=== PATIENT | male | born 1940 | race Caucasian/White ===

== ENCOUNTER 2024-10-08 15:21 | Inpatient (IN) | payer MEDICARE, OTHER, SELFPAY ==
[2024-10-08] VITALS (15 sets, daily range): BP systolic 109–151; BP diastolic 57–103
[2024-10-08 08:47] LABS: % Basophils 0.8 % (0-2); % Eosinophils 1.7 % (0-6); % Immature Granulocytes 0.5 % (0-0.5); % Lymphocytes 7.4 % (20.5-51.1); % Monocytes 10.4 % (1.7-9.3); % Neutrophils 79.2 % (42.2-75.2); Absolute Basophils 0.1 10^3/uL (0-0.2); Absolute Eosinophils 0.3 10^3/uL (0-0.7); Absolute Immature Granulocytes 0.1 10^3/uL (0-0.05); Absolute Lymphocytes 1.1 10^3/uL (1.2-3.4); Absolute Monocytes 1.6 10^3/uL (0.1-0.6); Absolute Neutrophils 12.2 10^3/uL (1.4-6.5); Hematocrit 49.4 % (39.0-52.0); Hemoglobin 17.1 g/dL (13.0-18.0); Mean Corp Hgb Conc. 34.6 g/dL (33.0-37.0); Mean Corpuscular Hgb 29.2 pg (27.0-31.0); Mean Corpuscular Volume 84.3 fL (80.0-94.0); Mean Platelet Volume 10.5 fL (7.4-10.4); Nucleated Red Blood Cells % 0 % (-); Platelet Count 199 10^3/uL (130-400); Red Blood Cell Count 5.86 10^6/uL (4.70-6.10); Red Cell Dist. Width 13.3 % (11.5-14.5); White Blood Cell Count 15.3 10^3/uL (4.8-10.8)
--- NOTE | 2024-10-08 09:02 | ED.GENMED ---
History of Present Illness
<Scott Frederick Jr., PA-C - Last Filed: 10/08/24 11:08>
General
Chief Complaint: Chest Pain
Source: patient and spouse
Exam Limitations: none
Time Seen by Provider: 10/08/24 08:37
Nursing documentation reviewed up to this point in time: agreed with
History of Present Illness
History of Present Illness:
84-year-old male presented to the emergency department today with concerns of right-sided chest discomfort over the past 2 days radiating to the right lower abdomen and to the back associated mild nausea and shortness. Does of a history of
ascending aortic aneurysm and renal aneurysm that gets monitored as an outpatient. Additionally has a history of high blood pressure and hyperlipidemia. Denies any change in bowel movements or vomiting. Denies any fevers.
Past History
<Scott Frederick Jr., PA-C - Last Filed: 10/08/24 11:08>
Past History
ED Past Medical History: CAD, HTN, Hypercholesterolemia and Other
Social History
Tobacco: Non-smoker
Review of Systems
<Scott Frederick Jr., PA-C - Last Filed: 10/08/24 11:08>
Review of Systems
Allergies reviewed?: Yes
All Other Systems: ROS reviewed and negative except as documented in HPI and ROS
Phy Exam
<Scott Frederick Jr., PA-C - Last Filed: 10/08/24 11:08>
Physical Exam
Physical Exam:
GENERAL: Alert , in no apparent distress
EYE: pupils equal and reactive
NECK: Supple, no significant adenopathy.
ENT: o/p clr, mmm.
CARDIAC: Regular rate and rhythm .
LUNGS: Clear breath sounds bilaterally, no acute respiratory distress, no wheezes/rales/rhonchi
ABDOMEN: Soft, without focal tenderness, no r/g, no cvat
NEUROLOGICAL: Alert and oriented, no focal neuro deficits
SKIN: Warm and dry, skin intact.
MUSCULOSKELETAL: No edema, well perfused.
PSYCH: Normal and appropriate interaction.
Scores
<Scott Frederick Jr., PA-C - Last Filed: 10/08/24 11:08>
Heart Score for Chest Pain Patients
STEMI patient?: Not applicable
Course
<Scott Frederick Jr., PA-C - Last Filed: 10/08/24 11:08>
Orders/Labs/Results
Orders:
Orders
10/08/24 07:56
EKG [Electrocardiogram (*1)] Urgent
Reason for Study: Chest Pain
10/08/24 07:57
EKG- Treatment ONCE
10/08/24 08:36
Complete Blood Count/With Diff Urgent
Comprehensive Metabolic Panel Urgent
Troponin I Urgent
10/08/24 08:48
CT Chest/abd/pelvis Angio W/wo Urgent
Comment:
Reason For Exam: chest abd pain/sob hx of aortic aneurysm
10/08/24 10:13
Heparin 9,500 units IV NOW STA
Pharmacy Request to Place See Dose Instructions PO NOW STA
Discontinue all Active Warfarin orders?: Yes
10/08/24 10:[address] Non Medication Order As Directed
Physician Order: PTT 6 hours after initial start of Heparin infusion
10/08/24 10:15
Heparin 27088 Units/250 ml 25,000 units in 250 ml IV PER PROTOCOL
Weight to be used for heparin protocol in kilograms (kg):: 118.8
Protocol:: DVT/PE
PTT Goal Range to be used:: PTT 73 to 111 seconds
Order type:: Initial
INITIAL Infusion Dose (UNITS/KG/hr) & then follow protocol:: 18 units/kg/hr
Infusion Dose in UNITS/hr & then follow protocol (UNITS/hr):: 2,000
INFUSION RATE in mL/hr & then follow protocol (mL/hr):: 20
For DVT/PE algorithm, re-bolus for low PTT?: Yes
PTT less than or equal to 64 seconds:: Re-bolus 80 units/kg (max 10,000units). Increase by 500 units/hr
(+ 5mL/hr)
PTT 64.1 to 72.9 seconds:: Re-bolus 40 units/kg (max 5,000 units). Increase by 200 units/hr
(+ 2mL/hr)
PTT 73 to 111 seconds:: Target Range. No change in rate.
PTT 111.1 to 130.9 seconds:: Decrease rate by 200 units/hr (- 2 mL/hr)
PTT 131 to 199.9 seconds:: HOLD for 1 hr. Then decrease by 400 units/hr (- 4mL/hr)
PTT greater than or equal to 200 seconds:: HOLD for 2 hrs & Notify Provider. Then decrease by 500 units/hr
(- 5mL/hr)
Lab follow-up:: Each change, PTT q6h until 2 consecutive are therapeutic. Then
PTT daily.
10/08/24 10:16
PTT Urgent
Comment: Obtain baseline before beginning heparin infusion if not already collected
10/08/24 10:20
Heparin 9,500 units IV PRN PRN
10/08/24 10:21
Heparin 5,000 units IV PRN PRN
10/08/24 10:24
Echo 2D MMode Color/Doppler Stat
Reason for Study: Large R PE
10/08/24 10:27
Heparin [id number] Units/250 ml 25,000 units in 250 ml .ROUTE .STK-MED
10/08/24 11:[address] See Dose Instructions IV DIRECTED
10/08/24 16:30
PTT Urgent
Abnormal Lab Results
10/08/24
08:36
WBC 15.3 H 10^3/uL
(4.8-10.8)
MPV 10.5 H fL
(7.4-10.4)
Abs Immat Gran (auto) 0.1 H 10^3/uL
(0-0.05)
Absolute Neuts (auto) 12.2 H 10^3/uL
(1.4-6.5)
Absolute Lymphs (auto) 1.1 L 10^3/uL
(1.2-3.4)
Absolute Monos (auto) 1.6 H 10^3/uL
(0.1-0.6)
Neutrophils % 79.2 H %
(42.2-75.2)
Lymphocytes % 7.4 L %
(20.5-51.1)
Monocytes % 10.4 H %
(1.7-9.3)
Chloride 108 H mmol/L
(98-107)
Creatinine 1.5 H mg/dL
(0.7-1.3)
Glucose 181 H mg/dl
(70-99)
Total Bilirubin 2.5 H mg/dl
(0.2-1.3)
Troponin I 0.077 H* ng/ml
10/08/24 08:36
10/08/24 08:36
Vital Signs
Initial and Last Documented VS:
Initial Vital Signs
Temp Pulse Resp BP Pulse Ox
98 F 72 16 129/88 94
10/08/24 08:02 10/08/24 08:02 10/08/24 08:02 10/08/24 08:02 10/08/24 08:02
Last Documented Vital Signs
Temp Pulse Resp BP Pulse Ox
98.5 F 95 16 109/91 94
10/08/24 10:32 10/08/24 10:32 10/08/24 10:32 10/08/24 10:33 10/08/24 10:15
<Abelardo Kern MD - Last Filed: 10/08/24 10:43>
Orders/Labs/Results
Orders:
Orders
10/08/24 07:56
EKG [Electrocardiogram (*1)] Urgent
Reason for Study: Chest Pain
10/08/24 07:57
EKG- Treatment ONCE
10/08/24 08:36
Complete Blood Count/With Diff Urgent
Comprehensive Metabolic Panel Urgent
Troponin I Urgent
10/08/24 08:48
CT Chest/abd/pelvis Angio W/wo Urgent
Comment:
Reason For Exam: chest abd pain/sob hx of aortic aneurysm
10/08/24 10:13
Heparin 9,500 units IV NOW STA
Pharmacy Request to Place See Dose Instructions PO NOW STA
Discontinue all Active Warfarin orders?: Yes
10/08/24 10:[address] Non Medication Order As Directed
Physician Order: PTT 6 hours after initial start of Heparin infusion
10/08/24 10:15
Heparin [id number] Units/250 ml 25,000 units in 250 ml IV PER PROTOCOL
Weight to be used for heparin protocol in kilograms (kg):: 118.8
Protocol:: DVT/PE
PTT Goal Range to be used:: PTT 73 to 111 seconds
Order type:: Initial
INITIAL Infusion Dose (UNITS/KG/hr) & then follow protocol:: 18 units/kg/hr
Infusion Dose in UNITS/hr & then follow protocol (UNITS/hr):: 2,000
INFUSION RATE in mL/hr & then follow protocol (mL/hr):: 20
For DVT/PE algorithm, re-bolus for low PTT?: Yes
PTT less than or equal to 64 seconds:: Re-bolus 80 units/kg (max 10,000units). Increase by 500 units/hr
(+ 5mL/hr)
PTT 64.1 to 72.9 seconds:: Re-bolus 40 units/kg (max 5,000 units). Increase by 200 units/hr
(+ 2mL/hr)
PTT 73 to 111 seconds:: Target Range. No change in rate.
PTT 111.1 to 130.9 seconds:: Decrease rate by 200 units/hr (- 2 mL/hr)
PTT 131 to 199.9 seconds:: HOLD for 1 hr. Then decrease by 400 units/hr (- 4mL/hr)
PTT greater than or equal to 200 seconds:: HOLD for 2 hrs & Notify Provider. Then decrease by 500 units/hr
(- 5mL/hr)
Lab follow-up:: Each change, PTT q6h until 2 consecutive are therapeutic. Then
PTT daily.
10/08/24 10:16
PTT Urgent
Comment: Obtain baseline before beginning heparin infusion if not already collected
10/08/24 10:20
Heparin 9,500 units IV PRN PRN
10/08/24 10:21
Heparin 5,000 units IV PRN PRN
10/08/24 10:24
Echo 2D MMode Color/Doppler Stat
Reason for Study: Large R PE
10/08/24 10:27
Heparin [id number] Units/250 ml 25,000 units in 250 ml .ROUTE .STK-MED
10/08/24 11:[address] See Dose Instructions IV DIRECTED
10/08/24 16:30
PTT Urgent
Abnormal Lab Results
10/08/24
08:36
WBC 15.3 H 10^3/uL
(4.8-10.8)
MPV 10.5 H fL
(7.4-10.4)
Abs Immat Gran (auto) 0.1 H 10^3/uL
(0-0.05)
Absolute Neuts (auto) 12.2 H 10^3/uL
(1.4-6.5)
Absolute Lymphs (auto) 1.1 L 10^3/uL
(1.2-3.4)
Absolute Monos (auto) 1.6 H 10^3/uL
(0.1-0.6)
Neutrophils % 79.2 H %
(42.2-75.2)
Lymphocytes % 7.4 L %
(20.5-51.1)
Monocytes % 10.4 H %
(1.7-9.3)
Chloride 108 H mmol/L
(98-107)
Creatinine 1.5 H mg/dL
(0.7-1.3)
Glucose 181 H mg/dl
(70-99)
Total Bilirubin 2.5 H mg/dl
(0.2-1.3)
Troponin I 0.077 H* ng/ml
10/08/24 08:36
10/08/24 08:36
Vital Signs
Initial and Last Documented VS:
Initial Vital Signs
Temp Pulse Resp BP Pulse Ox
98 F 72 16 129/88 94
10/08/24 08:02 10/08/24 08:02 10/08/24 08:02 10/08/24 08:02 10/08/24 08:02
Last Documented Vital Signs
Temp Pulse Resp BP Pulse Ox
98.5 F 95 16 109/91 94
10/08/24 10:32 10/08/24 10:32 10/08/24 10:32 10/08/24 10:33 10/08/24 10:15
<Scott Frederick Jr., PA-C - Last Filed: 10/08/24 11:08>
MDM/Problems Addressed
MDM/Problems Addressed:
84-year-old male presenting to the emergency department today with concerns of discomfort from the chest to the abdomen and back associated shortness of breath and nausea. On arrival here vital signs are normal patient no obvious distress no
significant reproducible pain. Patient does have a history of aortic aneurysm considering the description of symptoms from the chest to the abdomen rating to the back concern for aortic pathology CT angiogram was ordered for further assessment. CT
showing large right-sided PE. Some mild heart strain. Troponin additionally elevated at 0.077. A PERT alert was ordered and case was discussed with pulmonary care. They recommended stat echo. Patient was started on heparin. No history of
bleeding. Otherwise here doing well on 3 L nasal cannula. Patient admitted in stable condition
<Scott Frederick Jr., PA-C - Last Filed: 10/08/24 11:08>
*Critical Care Note
Total Time (30-74mins, 75-104mins- exclusive of procedures): Critical care statement:
comment:
Critical care statement: A total of 40 minutes of critical care time was provided for this patient. This includes management of unstable vital signs, evaluation of the patient at bedside, reviewing the patient's pertinent medical records, discussion
with consultants, review of old EKGs and review of pertinent medical records. This time with separate from time utilized to perform the aforementioned documented procedures
ED Attending Note
<Scott Frederick Jr., PA-C - Last Filed: 10/08/24 11:08>
-
Portions of this chart may have been created with voice recognition software.� Occasional wrong word or��sound alike� substitutions may have occurred due to the inherent limitations of voice recognition software.
<Abelardo Kern MD - Last Filed: 10/08/24 10:43>
ED Attending Note
Patient seen and examined by attending physician: Yes
I performed the substantive portion of visit, reviewed & personally made and approve the management plan that is documented in note by myself or OSCAR.: Yes
ED Attending Note:
84-year-old male started with some nausea 2 days ago followed by right pleuritic chest pain and shortness of breath. Symptoms are moderate in nature. No fever no cough no hemoptysis. Remote history of traumatic brain bleed. No GI bleeding
issues. No melena.
On exam patient is nontoxic. He is however mildly hypoxic on room air. 94% on 2 L. No respiratory distress otherwise. Blood pressure is reasonably stable. High normal heart rate. Abdomen nontender.
CT scan shows significant pulmonary emboli right lung with some mild RV strain. Heparin ordered. PERT alert called. Physician Assistant Surgery and IR involved. Likely will continue heparin at this time
Discharge Plan
Departure
Patient Disposition: Admit
Date of Disposition: 10/08/24
Time of Disposition: 11:03
Admit to: ICU
Admit to doctor: Domingo Miller
Presentation/result/management discussed w/ accepting MD/DO: Hospitalist
Patient with high blood pressure during this ER visit?: No
Condition: Good
Covid-19: Not Applicable
Discharge Problem:
Pulmonary embolism on right
Prescriptions:
No Action
valsartan 80 MG tablet
160 mg PO BID
bimatoprost [Lumigan] 0.03 % Drops
1 drp BOTH EYES DAILY
fexofenadine [Fabi] 180 mg Tablet
180 mg PO DAILY
amlodipine 5 mg Tablet
5 mg PO HS
diphenhydramine HCl [Benadryl] 25 mg Capsule
25 mg PO DAILYPRN PRN (Reason: ITCHING)
timolol maleate 0.5 % drops
1 drp BOTH EYES BID
magnesium oxide 250 mg magnesium Tablet
250 mg PO DAILY
ezetimibe 10 mg tablet
10 mg PO DAILY
coenzyme Q10 [Co Q-10] 200 mg Capsule
200 mg PO SUTUTHSA@1800
cholecalciferol (vitamin D3) [Vitamin D3] 125 mcg (5,000 unit) Tablet
125 mcg PO MOFR
pitavastatin calcium [Livalo] 1 mg Tablet
1 mg PO DAILY
Artificial Tears (PF) Dropperette
1 drp BOTH EYES QIDPRN PRN (Reason: DRY EYE)
Referrals:
Jacey Patrick DO [Family Provider] -
Interventions
Interventions:
*Risk Screen - Suicide Last Done: 10/08/24 08:02
*General Assessment Last Done: 10/08/24 08:37
*Neglect/Abuse Screening Last Done: 10/08/24 08:02
*ED- Fall Risk Assessment Last Done: 10/08/24 08:37
*ED COVID-19 Vaccine History Last Done: 10/08/24 08:37
ED- Cardiac Assessment Last Done: 10/08/24 08:38
Discharge Date and Time
Print Language: SLOVAK
[2024-10-08 09:03] LABS: ALT (SGPT) 40 U/L (0-50); AST (SGOT) 35 U/L (17-59); Albumin 4.2 g/dl (3.5-5.0); Alkaline Phosphatase 88 U/L (38-126); Blood Urea Nitrogen 19 mg/dl (9-20); Calcium 10.1 mg/dl (8.4-10.2); Carbon Dioxide 23 mmol/L (22-30); Chloride 108 mmol/L (98-107); Estimated Creatinine Clearance 53 ml/min; Glucose 181 mg/dl (70-99); Potassium 4.6 mmol/L (3.5-5.1); Sodium 139 mmol/L (135-145); Total Bilirubin 2.5 mg/dl (0.2-1.3); Total Protein 7.3 g/dl (6.3-8.2); eGFR 46.19
[2024-10-08 09:15] LABS: Troponin I 0.077 ng/ml
[2024-10-08] MEDS: HEPARIN 9500 UNITS IV (10:27)
[2024-10-08] MEDS: HEPARIN 25000 UNITS/250 ML IV (10:29)
[2024-10-08 10:32] LABS: APTT 31.1 Sec (23.4-35.0)
--- NOTE | 2024-10-08 11:45 | CARDSERVDEF ---
Echocardiogram with Definity completed after protocol screening completed. Allergies verified.
Patent IV site: _left hand____
IV site flushed with 0.9% NaCl pre and post administration.
Diluted bolus method utilized to enhance visualization of ventricular valentin.
Total volume given: __left hand__ mL
Patient tolerated all procedures well without complications.
[2024-10-08] MEDS: DILAUDID 0.25 MG IV ×2 (11:59→15:34)
[2024-10-08 14:20] LABS: NT-proBNP 721 pg/ml
--- NOTE | 2024-10-08 15:05 | HPS.HSE ---
Family Physician
-
Family Physician: Jacey Patrick
Chief Complaint
-
Chest discomfort
History of Present Illness
84-year-old male with past medical history of CAD, hypertension, hyperlipidemia, ascending aortic aneurysm and renal aneurysm getting closely monitored outpatient, now presents for right-sided chest discomfort that it was present 2 days ago.
Patient's chest discomfort was radiating to the right lower abdomen into the back. Also associate with nausea and shortness of breath. Patient did have chest discomfort upon inspiration, mild hypoxic requiring 4 L of oxygen, blood pressure 145/84,
respiratory rate 31, pulse 78, afebrile. White count 15.3 thousand creatinine 1.5 which is approximately at his baseline, troponin 0.077, proBNP 721. CT imaging evidence of positive large embolism beginning in the distal right main pulmonary
artery extending to the lobar branches. PERT alert was called. Further had low-density nodule arising in the left lobe of the thyroid gland. Echo is performed, technically difficult with flattened septum in systole consistent with RV pressure
overload, EF 55 to 60%, stage I diastolic dysfunction, mild aortic regurg. Right RV appears more hypokinetic than previous studies.
Medical History
Past Medical History
Past Medical History: Reports Other ( CAD, hypertension, hyperlipidemia, ascending aortic aneurysm and renal aneurysm)
Past Surgical History: Reports None
Social History
Tobacco: Non-smoker
Alcohol: None
Personal:
Family History
Family History: Not pertinent
Allergies / Home Medications
Allergies reflects when Allergies were last updated in [employer].
Home Medications with original date entered in [employer]
Allergy/Medication List:
Allergies
Allergy/AdvReac Type Severity Reaction Status Date / Time
cat dander Allergy Itching Verified 10/08/24 08:01
dog dander Allergy Itching Verified 10/08/24 08:01
grass pollen Allergy Itching Verified 10/08/24 08:01
hydrochlorothiazide Allergy Itching Verified 10/08/24 08:01
tree and shrub pollen Allergy Itching Verified 10/08/24 08:01
Home Medications
valsartan 80 mg tablet 160 mg PO BID 04/16/17
amlodipine 5 mg tablet 5 mg PO HS 10/08/24
bimatoprost 0.03 % eye drops 1 drp BOTH EYES DAILY 10/08/24
cholecalciferol (vitamin D3) 125 mcg (5,000 unit) tablet (Vitamin D3) 125 mcg PO MOFR 10/08/24
coenzyme Q10 200 mg capsule (Co Q-10) 200 mg PO SUTUTHSA@1800 10/08/24
dextran 70-hypromellose eye drops in a dropperette (Artificial Tears (PF) drops in a dropperette) 1 drp BOTH EYES QIDPRN PRN DRY EYE 10/08/24
diphenhydramine HCl 25 mg capsule (Benadryl) 25 mg PO DAILYPRN PRN ITCHING 10/08/24
ezetimibe 10 mg tablet 10 mg PO DAILY 10/08/24
fexofenadine 180 mg tablet 180 mg PO DAILY 10/08/24
magnesium oxide 250 mg PO DAILY 10/08/24
pitavastatin calcium 1 mg tablet (Livalo) 1 mg PO DAILY 10/08/24
timolol maleate 0.5 % eye drops 1 drp BOTH EYES BID 10/08/24
Review of Systems
-
History Source: Patient
A 12 point ROS was completed and negative except as noted: Yes
Physical Exam
Vital Signs
Vital Signs
Temp Pulse Resp BP Pulse Ox
98.5 F 78 16 145/84 94
10/08/24 10:32 10/08/24 14:00 10/08/24 14:08 10/08/24 14:00 10/08/24 14:00
Physical Exam
General: Well Developed
HEENT: NormoCephalic
Respiratory: Clear and Other (Tachypneic.)
Cardiac: S1/S2 and Regular Rhythm
GI: Soft and Non Tender
Musculoskeletal: No Clubbing
Skin: Warm
Neuro: Awake, Alert, Oriented and AO x 3
Hematologic/Lymphatic: No Lymphadenopathy
Psych: Calm
Laboratory Results
-
10/08/24 08:36
10/08/24 08:36
Laboratory Results
APTT 31.1 Sec (23.4-35.0) 10/08/24 10:16
Total Bilirubin 2.5 mg/dl (0.2-1.3) H 10/08/24 08:36
AST 35 U/L (17-59) 10/08/24 08:36
ALT 40 U/L (0-50) 10/08/24 08:36
Alkaline Phosphatase 88 U/L (38-126) 10/08/24 08:36
Troponin I 0.077 ng/ml H* 10/08/24 08:36
Data Reviewed
-
CT Scan: Report Reviewed by me
Medical Tests (Nuc Med, Echo, EKG etc): Report Reviewed by me
Lab Data: Labs Reviewed by me
Impression/Plan
-
IMPRESSION:
84-year-old male with past medical history of CAD, hypertension, hyperlipidemia, ascending aortic aneurysm and renal aneurysm getting closely monitored outpatient, now presents for right-sided chest discomfort that it was present 2 days ago. Found
to have large distal right main pulmonary artery embolism.
PLAN:
#Acute hypoxic respiratory failure
#Large distal right main pulmonary embolism
� PERT team was alerted
� Flattened septum on echo, EF 55 to 60%
� No intervention as per interventional radiology
� Avoid strenuous activity
� Continue heparin drip for 24 hours
� Pulmonary consulted
� Will need hematological evaluation outpatient
� Follow DVT study for completeness
� Wean O2 as tolerated
� Hold antihypertensives for now
#Elevated troponin
� Most likely nonischemic myocardial injury secondary to pulmonary embolism
� Trend troponins until peak
� No wall motion abnormality on echo
#Leukocytosis
� Most likely reactive
Monitor fever curve, white count
#CKD
� Monitor
#Hypertension
#Hyperlipidemia
#CAD
� Hold antihypertensives for now
� Can continue statin
#DVT prophylaxis
� Heparin drip
--- NOTE | 2024-10-08 15:30 | W.PN.UPDATE ---
Update Note
Progress Note Update
Received PERT alert from the reel cart operator earlier this AM at around 10-10:15AM. Reviewed images immediately, showing a right-sided PE with mild RV strain. Troponin level elevated although he is hemodynamically stable and on room air, although hypoxic
with saturations in the mid 90s. Discussed case with ER attending, as well as IR. Echo recommended, showing mild as moderately dilated RV with mild RV hypokinesis. IR recommends to continue with anticoagulation, and no emergent intervention is
needed at this time. Admit to hospitalist service with pulmonary consult. Please call [facility] services if there is any clinical worsening.
--- NOTE | 2024-10-08 15:42 | CON.PUL ---
Consultation
Consultation Request
Date/Time Consultation Requested: 10/08/2024
Date/Time Consultation Performed: 10/08/2024
Requesting Provider: Dr. Coreas
Performing Provider: Dr. Tristan Vargas
Reason for Consultation: Submassive pulmonary embolus
Medical History
-
History of Present Illness:
84-year-old male with past medical history significant for hypertension, coronary artery disease, hyperlipidemia, history of ascending aortic aneurysm presented to the emergency room complaining of right-sided chest discomfort for the past 2 days.
Chest pain was associated with shortness of breath and nausea. Did report some pleuritic type discomfort. He was found to be hypoxic requiring 4 L in the emergency room via nasal cannula. He was found to be normotensive.
Laboratory testing demonstrated mild increase troponins and mildly increased proBNP.
CT chest demonstrated large embolism on the right side. PERT alert was called. Echocardiogram demonstrated RV dysfunction.
After evaluation in the emergency room by interventional radiology and critical care it was deemed not candidate for thrombolysis at this point.
-
Past Medical History
Past Medical History: Other (See assessment and plan)
Social History
Tobacco: Non-smoker
Alcohol: None
Drug: None
Personal:
Family History
Family History: Reviewed & Not Pertinent
Allergies / Home Medications
Allergies
Allergy/AdvReac Type Severity Reaction Status Date / Time
cat dander Allergy Itching Verified 10/08/24 08:01
dog dander Allergy Itching Verified 10/08/24 08:01
grass pollen Allergy Itching Verified 10/08/24 08:01
hydrochlorothiazide Allergy Itching Verified 10/08/24 08:01
tree and shrub pollen Allergy Itching Verified 10/08/24 08:01
Home Medications
�Medication �Instructions �Recorded �Confirmed �Last Taken �Type
valsartan 80 mg tablet 160 mg PO BID 04/16/17 10/08/24 10/08/24 History
amlodipine 5 mg tablet 5 mg PO HS 10/08/24 10/08/24 Unknown History
bimatoprost 0.03 % eye drops 1 drp BOTH EYES DAILY 10/08/24 10/08/24 Unknown History
cholecalciferol (vitamin D3) 125 125 mcg PO MOFR 10/08/24 10/08/24 Unknown History
mcg (5,000 unit) tablet (Vitamin
D3)
coenzyme Q10 200 mg capsule (Co 200 mg PO SUTUTHSA@1800 10/08/24 10/08/24 Unknown History
Q-10)
dextran 70-hypromellose eye drops 1 drp BOTH EYES QIDPRN PRN DRY EYE 10/08/24 10/08/24 Unknown History
in a dropperette (Artificial Tears
(PF) drops in a dropperette)
diphenhydramine HCl 25 mg capsule 25 mg PO DAILYPRN PRN ITCHING 10/08/24 10/08/24 Unknown History
(Benadryl)
ezetimibe 10 mg tablet 10 mg PO DAILY 10/08/24 10/08/24 10/08/24 History
fexofenadine 180 mg tablet 180 mg PO DAILY 10/08/24 10/08/24 10/08/24 History
magnesium oxide 250 mg PO DAILY 10/08/24 10/08/24 10/08/24 History
pitavastatin calcium 1 mg tablet 1 mg PO DAILY 10/08/24 10/08/24 10/08/24 History
(Livalo)
timolol maleate 0.5 % eye drops 1 drp BOTH EYES BID 10/08/24 10/08/24 10/08/24 History
Review of Systems
-
History Source: Patient
All other systems: Negative unless noted
Vitals / Labs / Diagnostic Testing
Vital Signs
Temp Pulse Resp BP Pulse Ox
98.5 F 78 16 145/84 94
10/08/24 10:32 10/08/24 14:00 10/08/24 14:08 10/08/24 14:00 10/08/24 14:00
Lab Data
10/08/24 08:36
10/08/24 08:36
Laboratory Results
10/08/24
10:16
APTT 31.1
Diagnostic Testing:
Physical Exam
-
HEENT: Normocephalic
Cardiovascular: S1/S2
Respiratory: Non-Labored Respirations
GI: Soft and Non Distended
Neurology: Awake, Oriented and No Motor Deficits
Skin: Warm
General: Comfortable
Assessment
-
84-year-old male with past medical history noted admitted through the emergency room complaining of chest discomfort and shortness of breath for the last 2 days. Found to be mildly hypoxic. Found to have a right sided large pulmonary embolism. We
were consulted for evaluation on 10/08/2024.
Acute hypoxemic respiratory failure-on 4 L via nasal cannula
Unprovoked large distal right main pulmonary embolism on CT angiogram-reviewed
Echocardiogram 10/08/2024, normal LVEF. Mild LVH. Flattened septum in systole consistent with RV pressure overload. Stage I diastolic dysfunction.
Troponin 0.077
proBNP 721
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
Snoring
Conditions present prior admission:
Coronary artery disease
Hypertension
Hyperlipidemia
Sending aortic aneurysm and renal aneurysm
History of white matter disease ? - per
Assessment and plan:
Unprovoked right sided large pulmonary embolism.
PESI score 112 Class IV high risk group.
Mild troponin leak
Mild increase in proBNP
Echocardiogram noted with RV dysfunction but it is noted that in 2020 he also has some degree of RV dilatation. Is just mildly worse.
Mildly hypoxemic on 3 to 4 L-wean off as able.
Not hypotensive or tachycardic.
-
Patient reports being up-to-date with cancer screening
No previous history of clots
Patient was in his usual state of health and denies immobility or recent traveling.
-
PERT alert was called patient was not offered thrombolytics at this point due to stability.
Remains high risk situation.
If there is deterioration, then we could be offered at a later point. Will continue to follow.
-
Continue telemetry monitoring
Heparin drip for at least 48 hours before transitioning to oral anticoagulant-follow PTT
-
Patient will require ongoing follow-up with pulmonary as he has bibasilar interstitial changes likely underlying interstitial lung disease.
Also will need repeat echocardiogram in 3 months.
-
Snoring - at risk for EILEEN, discussed with and will folllow up in outpx - info left on chart
-
Will follow.
[2024-10-08 17:19] LABS: APTT > 200 Sec (23.4-35.0)
--- NOTE | 2024-10-08 18:36 | PTCARENOTE ---
Received patient on admission from ED via stretcher at approximately 17:46 with heparin infusing at 2000 units/hr. PTT drawn in ED and resulted once on unit: >200. Infusion held at that time, Dr Coreas notified; infusion to restart 2hrs after at
500 units/hr less. Will report to oncoming shift to restart at 19:23 at a rate of 1500 units/hr.
Patient's questioning if patient should be receiving valsartan, norvasc and zetia. Confirmed with Dr Servin via TT that medications on hold for today.
color television console monitor showing afib, but unable to determine. EKG done to confirm with results (picture of EKG) to Dr Coreas: SR with 1st degree AV block with PAC.
[2024-10-08] MEDS: DILAUDID 0.5 MG IV (18:50)
[2024-10-08] MEDS: TIMOPTIC 0.5% OPHTHALMIC SOLUTION 1 DROP BOTH EYES (20:14)
[2024-10-08] MEDS: NON-FORMULARY ITEM 1 UNIT BOTH EYES (22:37)
[2024-10-08 23:14] LABS: Troponin I 0.047 ng/ml
[2024-10-09] VITALS (13 sets, daily range): BP systolic 111–156; BP diastolic 71–95
[2024-10-09] MEDS: DILAUDID 0.5 MG IV ×2 (00:38→07:24)
[2024-10-09] MEDS: TYLENOL 1000 MG PO (01:03)
[2024-10-09 01:07] LABS: Urine Albumin 2+ (Neg - Trace); Urine Bilirubin Negative (Negative); Urine Character Clear (Clear); Urine Color Yellow; Urine Glucose Negative (Negative); Urine Ketone Negative (Negative); Urine Leukocyte Negative (Negative); Urine Nitrite Negative (Negative); Urine Occult Blood 1+ (Negative); Urine Specific Gravity 1.015 (<1.030); Urine Urobilinogen 1+ (Neg - 1+)
[2024-10-09] MEDS: VALIUM INJECTION 1 MG IV (01:17)
[2024-10-09] MEDS: FLUSH (NSS) 2 FLUSH IV ×2 (01:18→19:56)
--- NOTE | 2024-10-09 01:26 | PTCARENOTE ---
Bed alarm going off. Upon assessment pt pulled everything off. O2 off POX 92%. Skin warm to touch. Rectal tempt 100.3. Rest of VSS. Pt restless and writhing about in bed. Pt was asked if he was in pain and stated 'no.' Pt grabbing at rachael area. Pt
then asked if he needed to void and pt stated 'yes.' After urinal placed pt was unable to void but continued to grunt in pain and was very restless. Pt then admitted his hips were hurting but could not describe further. Bladder scanned for 537mls.
After explaining to pt and with assist of another RN pt straight cathed for 600mls and UA send to lab after order obtained. Pt received prn Dilaudid as ordered without much relief. Pt still c/o bladder pain. Rosette HOWELL TT'd and updated on
pt's status. Stat order for Tylenol 1000mg and Valium 1mg. Pt received meds as ordered. Heparin gtt continues infusing at 15units/hr. Currently resting comfortably. Call lawton remains within reach. Bed alarm remains on and working. Will continue to
monitor.
[2024-10-09 01:30] LABS: Urine Amorphous Seen; Urine Bacteria Many (Negative); Urine Mucus Few
[2024-10-09 02:28] LABS: APTT 109.9 Sec (23.4-35.0)
[2024-10-09] MEDS: HEPARIN 25000 UNITS/250 ML IV ×2 (02:32→19:49)
--- NOTE | 2024-10-09 05:47 | W.PN.UPDATE ---
Update Note
Progress Note Update
0100 RN reports pt with severe bladder pain. Pt had been retaining urine- was str cath'd for 600ml but still c/o severe bladder pain?spasm. Received dilaudid with min relief. Valium 1mg iv ordered. RN reported this was effective.
UA was ordered at that time and was unremarkable.
[2024-10-09 05:50] LABS: % Basophils 0.6 % (0-2); % Eosinophils 0.9 % (0-6); % Immature Granulocytes 0.4 % (0-0.5); % Monocytes 14.3 % (1.7-9.3); % Neutrophils 75.8 % (42.2-75.2); Absolute Basophils 0.1 10^3/uL (0-0.2); Absolute Eosinophils 0.2 10^3/uL (0-0.7); Absolute Immature Granulocytes 0.1 10^3/uL (0-0.05); Absolute Lymphocytes 1.3 10^3/uL (1.2-3.4); Absolute Monocytes 2.3 10^3/uL (0.1-0.6); Hematocrit 45.5 % (39.0-52.0); Hemoglobin 15.7 g/dL (13.0-18.0); Mean Corp Hgb Conc. 34.5 g/dL (33.0-37.0); Mean Corpuscular Hgb 29.1 pg (27.0-31.0); Mean Corpuscular Volume 84.4 fL (80.0-94.0); Mean Platelet Volume 10.7 fL (7.4-10.4); Nucleated Red Blood Cells % 0 % (-); Platelet Count 167 10^3/uL (130-400); Red Blood Cell Count 5.39 10^6/uL (4.70-6.10); Red Cell Dist. Width 13.2 % (11.5-14.5); White Blood Cell Count 15.8 10^3/uL (4.8-10.8)
[2024-10-09 06:29] LABS: Troponin I 0.035 ng/ml
[2024-10-09] MEDS: DILAUDID 1 MG IV ×3 (09:42→22:20)
[2024-10-09] MEDS: TIMOPTIC 0.5% OPHTHALMIC SOLUTION 1 DROP BOTH EYES ×2 (09:43→21:06)
[2024-10-09 09:48] LABS: Glycohemoglobin (HgbA1c) 6.3 % (4.0-5.6)
[2024-10-09] MEDS: DILAUDID 1.5 MG IV ×2 (12:02→19:56)
[2024-10-09 12:07] LABS: Blood Urea Nitrogen 22 mg/dl (9-20); Calcium 9.7 mg/dl (8.4-10.2); Carbon Dioxide 21 mmol/L (22-30); Chloride 106 mmol/L (98-107); Estimated Creatinine Clearance 57 ml/min; Glucose 145 mg/dl (70-99); Potassium 4.4 mmol/L (3.5-5.1); Sodium 137 mmol/L (135-145); eGFR 50.18
--- NOTE | 2024-10-09 12:35 | PTCARENOTE ---
Pt having poor pain control with available dilaudid dose - provider made aware and orders received for dilaudid 1mg for break through pain; BP = 135/90, HR ~ 100's; Pt continued to report severe right chest pain with radiation to right back and
flank. Restless in bed; Bladder scan performed for > 400; Attempted straight cath and unable to advance catheter past certain point; Provider notified and received orders to place gottlieb with coude cath and an increase in pain med. Gottlieb placed
with 500ml's out and immediate relief. Will continue to monitor and assess.
--- NOTE | 2024-10-09 13:31 | W.PN.HOSP.TC ---
Today's Communication/Plan
-
pain control
f/u urinary cultures
tamsulosin
hep ggt
Assessment / Plan
Assessment / Plan
Physical Exam
General: Well Developed
HEENT: NormoCephalic
Respiratory: Clear and Other (Tachypneic.)
Cardiac: S1/S2 and Regular Rhythm
GI: Soft and Non Tender
Musculoskeletal: No Clubbing
Skin: Warm
Neuro: Awake, Alert, Oriented and AO x 3
Hematologic/Lymphatic: No Lymphadenopathy
Psych: Calm
84-year-old male with past medical history of CAD, hypertension, hyperlipidemia, ascending aortic aneurysm and renal aneurysm getting closely monitored outpatient, now presents for right-sided chest discomfort that it was present 2 days ago. Found
to have large distal right main pulmonary artery embolism.
PLAN:
#Acute hypoxic respiratory failure
#Large distal right main pulmonary embolism
� PERT team was alerted
� Flattened septum on echo, EF 55 to 60%
� No intervention as per interventional radiology
� Avoid strenuous activity
� Continue heparin drip for 48 hours
� Pulmonary consulted
� Will need hematological evaluation outpatient
� Follow DVT study for completeness
� Wean O2 as tolerated
� Hold antihypertensives for now
#Pleuritic chest pain
� Likely secondary to PE
� Pain control monitoring blood pressures closely
#Urinary Retention
#Urinary Discomfort
#?UTI
-empiric abx
-retention worsened with opiates
-tamsulosin
#Elevated troponin
� Most likely nonischemic myocardial injury secondary to pulmonary embolism
� Trend troponins until peak
� No wall motion abnormality on echo
#Leukocytosis
� Most likely reactive
Monitor fever curve, white count
#CKD
� Monitor
#Hypertension
#Hyperlipidemia
#CAD
� Hold antihypertensives for now
� Can continue statin
#DVT prophylaxis
� Heparin drip
Anticipated Discharge: 24 - 48 hours
Subjective/Interval History
-
Date of Service: October 09, 2024
Persistent pleuritic pain
urinary discomfort - possible UTI
Objective Data
-
Labs:
Laboratory Results
10/09/24 10/09/24 10/09/24
02:10 05:19 09:36
WBC 15.8 H
Hgb 15.7
Hct 45.5
Plt Count 167
APTT 109.9 H Cancelled
Sodium Cancelled Cancelled
Potassium Cancelled Cancelled
Chloride Cancelled Cancelled
Carbon Dioxide Cancelled Cancelled
BUN Cancelled Cancelled
Creatinine Cancelled Cancelled
Glucose Cancelled Cancelled
Calcium Cancelled Cancelled
10/09/24 10/09/24
10:25 10:49
WBC
Hgb
Hct
Plt Count
APTT 98.0 H
Sodium 137
Potassium 4.4
Chloride 106
Carbon Dioxide 21 L
BUN 22 H
Creatinine 1.4 H
Glucose 145 H
Calcium 9.7
Vital Signs:
Vital Signs
Temp Pulse Resp BP Pulse Ox
97.4 F 85 23 135/90 94
10/09/24 12:28 10/09/24 08:00 10/09/24 08:00 10/09/24 08:00 10/09/24 08:00
I&O
10/08/24 10/09/24 10/10/24
06:59 06:59 06:59
Intake Total 250 / 250
Output Total 1320 / 1320
Balance -1070 / -1070
Review of Systems
-
History Source: Patient
All other systems: Not reviewed unless documented
Data Reviewed
-
Diagnostic Radiology: Report Reviewed by me
Labs: Labs Reviewed by me
--- NOTE | 2024-10-09 13:31 | CM ---
CM met with pt's spouse at bedside. Pt sleeping.
Pt resides with spouse in a 2 SH. Prior to admission pt has been ambulating in b/l walking sticks for balance and concerns of dizziness. Ind with adl's. + Crts.
Pt has no HC or SNF history.
PCP is Jacey Patrick and pharmacy is [facility].
DC dispo pending hospital progress. Pt currently in IMU. Anticipate home with possible VN needs.
--- NOTE | 2024-10-09 14:44 | CM ---
Call to pt's prescription plan,[employer] at [phone] and spoke with Alida who reports pt is covered for eliquis and the copays are:
10mg BID x 7 days (Starter pack) is $155.06
5mg BID x 30 day supply is $127.79
[2024-10-09] MEDS: FLOMAX 0.4 MG PO (15:01)
[2024-10-09] MEDS: ROCEPHIN 1000 MG IV (15:53)
[2024-10-09] MEDS: STERILE WATER FOR INJECTION 10 ML IV (15:54)
--- NOTE | 2024-10-09 16:30 | W.PN.PUL3 ---
Today's Communication / Plan
-
Heparin drip with transition to Eliquis by tomorrow
Okay to get up OOB as tolerated given that he has been on anticoagulation now for >24 hours
Case management consult to assess affordability of NOAC, preferably Eliquis
Outpatient hematology consult for hypercoagulable workup
Outpatient pulmonary office will be obtained to discuss abnormal imaging with possible ILD, and to check PFTs and possibly 6 MWT
Pain control (he has at times severe right-sided back pain, which is chronic)
Pulmonary service will continue to follow
Assessment
-
84-year-old male with past medical history noted admitted through the emergency room complaining of chest discomfort and shortness of breath for the last 2 days. Found to be mildly hypoxic. Found to have a right sided large pulmonary embolism. We
were consulted for evaluation on 10/08/2024.
Acute hypoxemic respiratory failure-on 4 L via nasal cannula due to a right-sided PE
Submassive right-sided acute PE with RV strain
Echocardiogram 10/08/2024: Mild�moderately dilated RV with mild RV hypokinesis; Normal LVEF. Mild LVH. Flattened septum in systole consistent with RV pressure overload. Stage I diastolic dysfunction.
Troponin 0.077
proBNP 721
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
Snoring
Conditions present prior admission:
Coronary artery disease
Hypertension
Hyperlipidemia
Sending aortic aneurysm and renal aneurysm
History of white matter disease ? - per
Assessment and plan:
Right sided large pulmonary embolism, possibly unprovoked however per the he is very sedentary, and has a history of falls with dizziness upon standing. He works with PT 2 times a week, and she says that he has a white matter [employer] disease that
he was diagnosed with which is contributing to his falls and dizziness
PESI score 112 Class IV high risk group.
Mild troponin leak (peaked at 0.077 on 10/08/2024) � no longer need to continue trending at this time
Mild increase in proBNP
Echocardiogram noted with RV dysfunction but it is noted that in 2019 he had an enlarged RV but with normal RV systolic function; he now has RV hypokinesis with RV pressure overload
Mildly hypoxemic on 3 to 4 L-wean off as able while keeping SpO2 >90-94%
May need to be discharged on home O2 � check home O2 assessment on the day of discharge
-
Patient reports being up-to-date with cancer screening
No previous history of clots
Patient was in his usual state of health and denies immobility or recent traveling; although the says that he is sedentary at home due to a history of falls/dizziness with this diagnosis of white matter disease in his brain.
-
PERT alert was called - patient was not offered thrombolytics at this point due to stability and only mild RV hypokinesis and mild oxygen requirements
Remains high risk situation.
If there is deterioration, then may need to consider embolectomy versus CDT at that time; he seems stable at this point which is encouraging
-
Continue telemetry monitoring
Heparin drip for at least 48 hours before transitioning to oral anticoagulant-follow PTT
Would recommend transitioning to Eliquis at least by tomorrow morning
Recommend case management consult to evaluate affordability of Eliquis
Recommend him to see hematology as an outpatient for hypercoagulable workup and to assist in duration of AC needed
-
Patient will require ongoing follow-up with pulmonary as he has bibasilar interstitial changes likely underlying interstitial lung disease; will need outpatient PFTs
Also will need repeat echocardiogram in 3 months.
-
Snoring - at risk for EILEEN, discussed with and will follow up in outpx - info left on chart
-
Will follow.
Subjective Data
-
Date of Service:
Date of Service: October 09, 2024
Chief Complaint: Pulmonary Follow Up
Subjective:
Patient was seen earlier today (late note entry). He is currently sleeping but is arousable to voice. His , Cindy, is answering most of the questions. She said that he had a very rough morning due to his lower right sided back pain, which
is chronic. Currently, SpO2 is 93% on 4 L/min, heart rate 90, and BP 143/95. He is currently on a heparin drip. He appears to be resting comfortably.
Review of Systems
General: Other (Unable to obtain as patient is sleeping/lethargic)
Objective Data
Data Reviewed
Vital Signs / I&O / Oxygen:
Vital Signs
Temp Pulse Resp BP Pulse Ox
97.9 F 73 26 135/80 94
10/09/24 07:23 10/09/24 06:00 10/09/24 06:00 10/09/24 06:00 10/09/24 06:00
Intake and Output
10/08/24 10/09/24 10/10/24
06:59 06:59 06:59
Intake Total 250 / 250
Output Total 1320 / 1320
Balance -1070 / -1070
SaO2 94
Nasal Cannula flow liters per 4
minute
Physical Exam
General: Respiratory Distress (negative), Comfortable, Chills (negative) and Sweats (negative)
HEENT: Normocephalic, Anicteric and Other (Thick neck)
Cardiovascular: S1-S2 and Peripheral Edema (negative)
Respiratory: Clear, Wheeze (negative), Crackles (negative), Rhonchi (negative) and Non-Labored Respirations
GI: Soft, Distended (Abdominal obesity), Non Tender and Normal Bowel Sounds
Neurology: Tremors (negative) and Other (Sleeping/lethargic although arousable to voice)
Skin: Warm, Dry, Cyanosis (negative) and Jaundice (negative)
Labs/Micro/Reports
Lab Data
10/09/24 05:19
Laboratory Results
10/08/24 10/08/24 10/09/24
10:16 16:39 02:10
APTT 31.1 > 200 H* 109.9 H
[2024-10-09] MEDS: NON-FORMULARY ITEM 1 UNIT BOTH EYES (21:07)
[2024-10-09] MEDS: TYLENOL 650 MG PO (22:11)
[2024-10-10] VITALS (13 sets, daily range): BP systolic 93–144; BP diastolic 54–109; BMI 31.2
[2024-10-10] MEDS: FLUSH (NSS) 2 FLUSH IV (01:23)
[2024-10-10] MEDS: VALIUM INJECTION 1 MG IV (01:23)
[2024-10-10 04:20] LABS: Hematocrit 43.9 % (39.0-52.0); Hemoglobin 15.1 g/dL (13.0-18.0); Mean Corp Hgb Conc. 34.4 g/dL (33.0-37.0); Mean Corpuscular Hgb 29.4 pg (27.0-31.0); Mean Corpuscular Volume 85.4 fL (80.0-94.0); Mean Platelet Volume 11.2 fL (7.4-10.4); Platelet Count 186 10^3/uL (130-400); Red Blood Cell Count 5.14 10^6/uL (4.70-6.10); Red Cell Dist. Width 13.4 % (11.5-14.5); White Blood Cell Count 22.9 10^3/uL (4.8-10.8)
--- NOTE | 2024-10-10 05:13 | PTCARENOTE ---
Pt resting throughout shift. On and off pain to bladder and right lower back. Medicated with Dilaudid and one time dose Valium as ordered with good pain relief. This am after am labs drawn pt grunting. When asked if he is having pain pt stated 'I'm
predicting my arm is going to hurt.' Flynn draining 250ml total urine output for shift. Christiana. VSS. Afebrile. SR/ST/PVC on CM. Denies CP. Heparin gtt continues infusing at 15units/hr. No change from previous assessment. Maintained on Q2hr turns.
Call lawton remains within reach. Will continue to monitor.
[2024-10-10 05:39] LABS: ALT (SGPT) 78 U/L (0-50); AST (SGOT) 44 U/L (17-59); Albumin 3.5 g/dl (3.5-5.0); Alkaline Phosphatase 95 U/L (38-126); Blood Urea Nitrogen 33 mg/dl (9-20); Calcium 9.6 mg/dl (8.4-10.2); Carbon Dioxide 21 mmol/L (22-30); Chloride 102 mmol/L (98-107); Estimated Creatinine Clearance 42 ml/min; Glucose 157 mg/dl (70-99); Potassium 4.7 mmol/L (3.5-5.1); Sodium 132 mmol/L (135-145); Total Protein 6.1 g/dl (6.3-8.2); eGFR 34.79
[2024-10-10] MEDS: DILAUDID 1 MG IV ×3 (05:43→15:17)
[2024-10-10 06:02] LABS: APTT 105.4 Sec (23.4-35.0)
[2024-10-10] MEDS: FLOMAX 0.4 MG PO (07:59)
[2024-10-10] MEDS: HEPARIN 25000 UNITS/250 ML IV (08:28)
[2024-10-10] MEDS: TIMOPTIC 0.5% OPHTHALMIC SOLUTION 1 DROP BOTH EYES ×2 (10:13→19:50)
[2024-10-10] MEDS: LR 1000 IV ×2 (10:22→19:49)
[2024-10-10] MEDS: ROXICODONE 5 MG PO (11:59)
--- NOTE | 2024-10-10 14:21 | W.PN.HOSP.TC ---
Today's Communication/Plan
-
Wean pain control, add oxycodone
Abdominal ultrasound
Can stop antibiotics, urine cultures negative
fleet operations manager consulted for Eliquis pricing, continue heparin drip in the interim
PT
Ambulation, avoid strenuous activity
Wean O2
Assessment / Plan
Assessment / Plan
Physical Exam
General: Well Developed
HEENT: NormoCephalic
Respiratory: Clear and Other (Tachypneic.)
Cardiac: S1/S2 and Regular Rhythm
GI: Soft and Non Tender
Musculoskeletal: No Clubbing
Skin: Warm
Neuro: Awake, Alert, Oriented and AO x 3
Hematologic/Lymphatic: No Lymphadenopathy
Psych: Calm
84-year-old male with past medical history of CAD, hypertension, hyperlipidemia, ascending aortic aneurysm and renal aneurysm getting closely monitored outpatient, now presents for right-sided chest discomfort that it was present 2 days ago. Found
to have large distal right main pulmonary artery embolism.
PLAN:
#Acute hypoxic respiratory failure
#Large distal right main pulmonary embolism
#LE DVT
� PERT team was alerted
� Flattened septum on echo, EF 55 to 60%
� No intervention as per interventional radiology
� Avoid strenuous activity
- OK for OOb to chair
� Continue heparin drip for 48 hours - CM consulted for vincent of Eliquis
� Pulmonary consulted
� Will need hematological evaluation outpatient
� Wean O2 as tolerated
� Hold antihypertensives for now
#Pleuritic chest pain
� Likely secondary to PE
� Pain control monitoring blood pressures closely
# RUQ abd pain
#Transaminitis
-f/u US
#Hyponatremia
# Mild
� Monitor
#BRIAN on CKD
� LR
� Monitor BMP closely
#Urinary Retention
#Urinary Discomfort
#Asymptomatic bacteriuria
- stop antibiotics, no gross
-retention worsened with opiates
-tamsulosin
� Flynn placed
#Elevated troponin
� Most likely nonischemic myocardial injury secondary to pulmonary embolism
� Trend troponins until peak
� No wall motion abnormality on echo
#Leukocytosis
� Most likely reactive
Monitor fever curve, white count
#CKD
� Monitor
#Hypertension
#Hyperlipidemia
#CAD
� Hold antihypertensives for now
� Can continue statin
#DVT prophylaxis
� Heparin drip
Anticipated Discharge: 24 - 48 hours
Subjective/Interval History
-
Date of Service: October 10, 2024
pain somewhat improved
Objective Data
-
Labs:
Laboratory Results
10/10/24 10/10/24 10/10/24
03:57 04:56 05:31
WBC 22.9 H
Hgb 15.1
Hct 43.9
Plt Count 186
APTT Cancelled Cancelled 105.4 H
Sodium Cancelled 132 L
Potassium Cancelled 4.7
Chloride Cancelled 102
Carbon Dioxide Cancelled 21 L
BUN Cancelled 33 H
Creatinine Cancelled 1.9 H
Glucose Cancelled 157 H
Calcium Cancelled 9.6
Total Bilirubin Cancelled 3.0 H
AST Cancelled 44
ALT Cancelled 78 H
Alkaline Phosphatase Cancelled 95
Vital Signs:
Vital Signs
Temp Pulse Resp BP Pulse Ox
97.7 F 93 36 110/65 93
10/10/24 11:25 10/10/24 10:00 10/10/24 10:00 10/10/24 10:00 10/10/24 09:44
I&O
10/09/24 10/10/24 10/11/24
06:59 06:59 06:59
Intake Total 250 / 250
Output Total 1320 / 1320 850 / 850
Balance -1070 / -1070 -850 / -850
Review of Systems
-
History Source: Patient
All other systems: Not reviewed unless documented
Data Reviewed
-
Diagnostic Radiology: Report Reviewed by me
Labs: Labs Reviewed by me
[2024-10-10 15:43] LABS: HIV Combo Negative (Negative)
--- NOTE | 2024-10-10 15:57 | CM ---
Met with patient and at bedside; agreeable to home health/VN; agency options reviewed; [facility]
--- NOTE | 2024-10-10 16:30 | W.PN.PUL3 ---
Today's Communication / Plan
-
Heparin drip with transition to Eliquis tonight
Okay to get up OOB as tolerated given that he has been on anticoagulation now for >48 hours
Case management consult to assess affordability of NOAC, preferably Eliquis
Outpatient hematology consult for hypercoagulable workup
Outpatient pulmonary office will be obtained to discuss abnormal imaging with possible ILD, and to check PFTs and possibly 6 MWT
Pain control (he has at times severe right-sided back pain, which is chronic)
Pulmonary service will continue to follow
Assessment
-
84-year-old male with past medical history noted admitted through the emergency room complaining of chest discomfort and shortness of breath for the last 2 days. Found to be mildly hypoxic. Found to have a right sided large pulmonary embolism. We
were consulted for evaluation on 10/08/2024.
Acute hypoxemic respiratory failure-on 4-5 L via nasal cannula due to a right-sided PE
Submassive right-sided acute PE with RV strain
Echocardiogram 10/08/2024: Mild�moderately dilated RV with mild RV hypokinesis; Normal LVEF. Mild LVH. Flattened septum in systole consistent with RV pressure overload. Stage I diastolic dysfunction.
Troponin 0.077
proBNP 721
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
Snoring
Conditions present prior admission:
Coronary artery disease
Hypertension
Hyperlipidemia
Sending aortic aneurysm and renal aneurysm
History of white matter disease ? - per
Assessment and plan:
Right sided large pulmonary embolism, possibly unprovoked however per the he is very sedentary, and has a history of falls with dizziness upon standing. He works with PT 2 times a week, and she says that he has a white matter E M ASSEMBLER disease that
he was diagnosed with which is contributing to his falls and dizziness + sedentary lifestyle
PESI score 112 Class IV high risk group.
Mild troponin leak (peaked at 0.077 on 10/08/2024) � no longer need to continue trending at this time
Mild increase in proBNP
Echocardiogram noted with RV dysfunction but it is noted that in 2019 he had an enlarged RV but with normal RV systolic function; he now has RV hypokinesis with RV pressure overload
Mildly hypoxemic on 4-5 L/min-wean off as able while keeping SpO2 >90-94%
May need to be discharged on home O2 � check home O2 assessment on the day of discharge
-
Patient reports being up-to-date with cancer screening
No previous history of clots
Patient was in his usual state of health and denies immobility or recent traveling; although the says that he is sedentary at home due to a history of falls/dizziness with this diagnosis of white matter disease in his brain.
-
PERT alert was called initially- patient was not offered thrombolytics at this point due to stability and only mild RV hypokinesis and mild oxygen requirements
Remains high risk situation.
If there is deterioration, then may need to consider embolectomy versus CDT at that time; he seems stable at this point which is encouraging
-
Continue telemetry monitoring
Heparin drip for at least 48 hours before transitioning to oral anticoagulant-follow PTT
Would recommend transitioning to Eliquis tonight (10/10)
Recommend case management consult to evaluate affordability of Eliquis
Recommend him to see hematology as an outpatient for hypercoagulable workup and to assist in duration of AC needed
-
Patient will require ongoing follow-up with pulmonary as he has bibasilar interstitial changes likely underlying interstitial lung disease; will need outpatient PFTs
Also will need repeat echocardiogram in 3 months.
-
Snoring - at risk for EILEEN, discussed with and will follow up in outpx - info left on chart
-
Will follow.
Subjective Data
-
Date of Service:
Date of Service: October 10, 2024
Chief Complaint: Pulmonary Follow Up
Subjective:
Patient was seen and evaluated today at bedside (late note entry). Still having right sided rib/back pain. Currently on 5 L/min saturating 92% with heart rate 95 and BP 118/73. His is at bedside. All questions were answered.
Review of Systems
General: Other (Negative unless mentioned above)
Objective Data
Data Reviewed
Vital Signs / I&O / Oxygen:
Vital Signs
Temp Pulse Resp BP Pulse Ox
98.3 F 93 36 110/65 93
10/10/24 07:54 10/10/24 10:00 10/10/24 10:00 10/10/24 10:00 10/10/24 09:44
Intake and Output
10/09/24 10/10/24 10/11/24
06:59 06:59 06:59
Intake Total 250 / 250
Output Total 1320 / 1320 850 / 850
Balance -1070 / -1070 -850 / -850
SaO2 93
Nasal Cannula flow liters per 5
minute
Physical Exam
General: Respiratory Distress (negative), Pain (Right-sided rib/back), Chills (negative) and Sweats (negative)
HEENT: Normocephalic, Anicteric and Other (Thick neck)
Cardiovascular: S1-S2 and Peripheral Edema (negative)
Respiratory: Clear, Wheeze (negative), Crackles (negative), Rhonchi (negative) and Non-Labored Respirations
GI: Soft, Distended (Abdominal obesity), Non Tender and Normal Bowel Sounds
Neurology: Awake, Alert and Tremors (negative)
Skin: Warm, Dry, Cyanosis (negative) and Jaundice (negative)
Labs/Micro/Reports
Lab Data
10/10/24 03:57
10/10/24 04:56
Laboratory Results
10/10/24 10/10/24 10/10/24
03:57 04:56 05:31
APTT Cancelled Cancelled 105.4 H
[2024-10-10] MEDS: LIDOCAINE 4% PATCH TOPICAL (18:17)
[2024-10-10] MEDS: OFIRMEV 100 IV (19:49)
[2024-10-10 21:30] LABS: % Basophils 0.4 % (0-2); % Eosinophils 0.4 % (0-6); % Immature Granulocytes 0.7 % (0-0.5); % Lymphocytes 3.8 % (20.5-51.1); % Neutrophils 83.7 % (42.2-75.2); Absolute Basophils 0.1 10^3/uL (0-0.2); Absolute Eosinophils 0.1 10^3/uL (0-0.7); Absolute Immature Granulocytes 0.2 10^3/uL (0-0.05); Absolute Lymphocytes 0.9 10^3/uL (1.2-3.4); Absolute Monocytes 2.6 10^3/uL (0.1-0.6); Absolute Neutrophils 19.7 10^3/uL (1.4-6.5); Hematocrit 41.2 % (39.0-52.0); Hemoglobin 14.6 g/dL (13.0-18.0); Mean Corp Hgb Conc. 35.4 g/dL (33.0-37.0); Mean Corpuscular Hgb 29.7 pg (27.0-31.0); Mean Corpuscular Volume 83.9 fL (80.0-94.0); Mean Platelet Volume 10.6 fL (7.4-10.4); Nucleated Red Blood Cells % 0 % (-); Platelet Count 206 10^3/uL (130-400); Red Blood Cell Count 4.91 10^6/uL (4.70-6.10); Red Cell Dist. Width 13.2 % (11.5-14.5); White Blood Cell Count 23.5 10^3/uL (4.8-10.8)
[2024-10-10 21:42] LABS: Lactic Acid 1.1 mmol/L (0.7-2.0)
[2024-10-10 21:49] LABS: ALT (SGPT) 53 U/L (0-50); AST (SGOT) 30 U/L (17-59); Albumin 2.9 g/dl (3.5-5.0); Alkaline Phosphatase 91 U/L (38-126); Blood Urea Nitrogen 38 mg/dl (9-20); Calcium 9.4 mg/dl (8.4-10.2); Carbon Dioxide 20 mmol/L (22-30); Chloride 101 mmol/L (98-107); Estimated Creatinine Clearance 47 ml/min; Glucose 148 mg/dl (70-99); Potassium 4.3 mmol/L (3.5-5.1); Sodium 129 mmol/L (135-145); Total Bilirubin 2.5 mg/dl (0.2-1.3); Total Protein 5.5 g/dl (6.3-8.2); eGFR 39.75
[2024-10-10] MEDS: NON-FORMULARY ITEM 1 UNIT BOTH EYES (22:17)
[2024-10-10] MEDS: NSS 1000 IV (22:17)
[2024-10-10] MEDS: ROCEPHIN 1000 MG IV (22:31)
[2024-10-10] MEDS: STERILE WATER FOR INJECTION 10 ML IV (22:31)
--- NOTE | 2024-10-10 22:41 | PTCARENOTE ---
assumed care of patient. pt is AAOx1- oriented to self only. received patient in b/l mitts, pt restless and fulling at gottlieb. symptomatic fever of 100.2, pt flushed, sweating, tachycardic in 110s. notified covering PROMOTIONAL MARKETING AGENT, IV offermiv ordered and two
sets of blood cultures drawn and sent. CBC, BMP, procal, and lactic also drawn. lactic normal, procal critical 2.10, notified covering PROMOTIONAL MARKETING AGENT, IV rocephen reordered and dose given tonight. sodium low 129, IV fluids changed to NS @100ml/hr. daughter in
room and updated on all of this. also called this RN saying she was told 'patient had sepsis, and would hope that we are treating him right away and not later'. saying 'he better not in the hospital of sepsis when it could be caught early.'
also asking for PROMOTIONAL MARKETING AGENT to call her and if not wants the attending to call her in the morning, notified covering PROMOTIONAL MARKETING AGENT of the above. heparin gtt infusing at 15ml/hr, PTT in for AM. q2t. gottlieb intact, gottlieb wipes done, another urine culture sent
down too. pt on 5L NC 92-95%, can be tachypneic at times. foam on sacrum intact. bed alarm on. care ongoing.
[2024-10-11] VITALS (18 sets, daily range): BP systolic 72–121; BP diastolic 50–85; PULSE 78; O2SAT 94
[2024-10-11] MEDS: HEPARIN 25000 UNITS/250 ML IV ×2 (01:48→17:43)
--- NOTE | 2024-10-11 02:12 | PTCARENOTE ---
pt noted to be moaning and restless. asked patient if he is in pain and he said his right shoulder is a little painful. offered patient PO tylenol, pt declined at this time. care ongoing.
[2024-10-11] MEDS: VALIUM INJECTION 1 MG IV (02:52)
--- NOTE | 2024-10-11 03:29 | PTCARENOTE ---
pt now reporting pain to be 7/10 to right shoulder with movement. all pain meds were d'c'd today. notified covering PULMONOLOGIST/INTENSIVIST- orders entered for x1 IV valium per SEP. pt resting on and off. asking this RN 'when will the pain stop'. positive
encouragement given. care ongoing.
--- NOTE | 2024-10-11 04:49 | W.PN.UPDATE ---
Update Note
Progress Note Update
�Restarted Rocephin. WBC 23, T 100.3, BC x2, urine, BRIAN is improving, NA+ 129 IVF changed to NS @100. HR 110s. Procal is� 2.10 but lactic WNL. Became confused disoriented, agitated�yesterday afternoon needing mitts.�Valium IV x1 for restlessness
effective.
[2024-10-11] MEDS: OFIRMEV 100 IV (04:52)
--- NOTE | 2024-10-11 05:08 | PTCARENOTE ---
pt woke up again restless, agitated, screaming and moaning in pain. notified covering YARDAGE CALLER- orders entered for x1 IV tylenol.
[2024-10-11 05:16] LABS: Hematocrit 43.1 % (39.0-52.0); Hemoglobin 15.1 g/dL (13.0-18.0); Mean Corpuscular Hgb 29.4 pg (27.0-31.0); Mean Corpuscular Volume 83.9 fL (80.0-94.0); Mean Platelet Volume 10.4 fL (7.4-10.4); Platelet Count 202 10^3/uL (130-400); Red Blood Cell Count 5.14 10^6/uL (4.70-6.10); Red Cell Dist. Width 13.3 % (11.5-14.5); White Blood Cell Count 20.6 10^3/uL (4.8-10.8)
[2024-10-11 05:38] LABS: ALT (SGPT) 50 U/L (0-50); AST (SGOT) 30 U/L (17-59); Albumin 3.3 g/dl (3.5-5.0); Alkaline Phosphatase 104 U/L (38-126); Blood Urea Nitrogen 38 mg/dl (9-20); Calcium 9.5 mg/dl (8.4-10.2); Carbon Dioxide 19 mmol/L (22-30); Chloride 103 mmol/L (98-107); Estimated Creatinine Clearance 47 ml/min; Glucose 150 mg/dl (70-99); Potassium 4.2 mmol/L (3.5-5.1); Sodium 132 mmol/L (135-145); Total Bilirubin 2.2 mg/dl (0.2-1.3); eGFR 39.75
[2024-10-11] MEDS: NSS 1000 IV (07:18)
[2024-10-11] MEDS: TYLENOL 650 MG PO ×2 (08:41→21:16)
[2024-10-11] MEDS: FLOMAX 0.4 MG PO (08:42)
[2024-10-11] MEDS: LIDOCAINE 4% PATCH 2 PATCH TOPICAL (08:42)
[2024-10-11] MEDS: TIMOPTIC 0.5% OPHTHALMIC SOLUTION 1 DROP BOTH EYES ×2 (08:43→19:45)
--- NOTE | 2024-10-11 13:05 | PTCARENOTE ---
IN /OUT bed to chair 3 times this am (PT, US, BSC) BP coming up low 72/50- asymptomatic - eyes are blurry but they are always blurry per pt. Drank water, BP up to 91/70. Put back to bed and now 120/61. IVF infusing at 100/hr. IV Heparin gtt at
1500units/hr. Tylenol given for pain this am and LIDO patches x2 intact to site. Very uncomfortable when moving but settles at rest. Family present- Dr. Malone aware of events.
--- NOTE | 2024-10-11 15:26 | W.PN.HOSP.TC ---
Today's Communication/Plan
-
continue Rocephin for now
continue Heparin, to transition to DOAC once cost is known
add steroids, wean as quickly as tolerates
would not use NSAID's in pt with renal insuff. complex situation, reviewed extensively with son
Assessment / Plan
Assessment / Plan
84-year-old male with past medical history of CAD, hypertension, hyperlipidemia, ascending aortic aneurysm and renal aneurysm getting closely monitored outpatient, now presents for right-sided chest discomfort that it was present 2 days ago. Found
to have large distal right main pulmonary artery embolism.
PLAN:
#Acute hypoxic respiratory failure
#Large distal right main pulmonary embolism
#LE DVT
� PERT team was alerted
� Flattened septum on echo, EF 55 to 60%
� No intervention as per interventional radiology
� Avoid strenuous activity
- OK for OOb to chair
� Continue heparin drip for 48 hours - CM consulted for vincent of Eliquis
� Pulmonary consulted
� Will need hematological evaluation outpatient
� Wean O2 as tolerated
� Hold antihypertensives for now, pt drops BP when gets out of bed
Severe pleuritic chest pain
will add short course of steroids to control pleuritic pain
#Pleuritic chest pain
� Likely secondary to PE
� Pain control monitoring blood pressures closely
# RUQ abd pain
#Transaminitis
-f/u US: Mild hepatomegaly with findings suggesting diffuse fatty liver.
Prior cholecystectomy. Mildly enlarged common bile duct which may be the sequela of prior cholecystectomy. No findings to suggest intrahepatic biliary tract dilatation.
Pancreas, abdominal aorta and IVC significantly obscured, most likely by overlying bowel gas.
Mild left renal collecting system and proximal left ureteral dilatation. Please see above comments.
#Hyponatremia
# Mild, Na 132
� Monitor
#BRIAN on CKD
� will stop IVF and follow BP
� Monitor BMP closely
#Urinary Retention
#Urinary Discomfort
#Asymptomatic bacteriuria
- Significant elevated WBC (my impression would be related to pleuritic symptoms, but elevated Procalcitonin does raise concern for infectious etiology and Rocephin resumed last evening, await input from Pulmonary, but for now, will continue
Rocephin), unfortunately starting steroids will make following WBC more complex
-retention worsened with opiates
-tamsulosin
� Flynn placed
#Elevated troponin
� Most likely nonischemic myocardial injury secondary to pulmonary embolism
� Trend troponins until peak
� No wall motion abnormality on echo
#Leukocytosis
� Most likely reactive
Monitor fever curve, white count
#CKD
� Monitor
#Hypertension
#Hyperlipidemia
#CAD
� Hold antihypertensives for now with dropping bp when gets out of bed
� Can continue statin
#DVT prophylaxis
� Heparin drip, await update as to cost of DOAC and then will transition
Anticipated Discharge: > 48 hours
Subjective/Interval History
-
Date of Service: October 11, 2024
Having a lot of rt lateral chest wall pleuiritc pain. Became very confused after received narcotic analgesic
Objective Data
-
Labs:
Laboratory Results
10/11/24
05:03
WBC 20.6 H
Hgb 15.1
Hct 43.1
Plt Count 202
APTT 83.0 H
Sodium 132 L
Potassium 4.2
Chloride 103
Carbon Dioxide 19 L
BUN 38 H
Creatinine 1.7 H
Glucose 150 H
Calcium 9.5
Total Bilirubin 2.2 H
AST 30
ALT 50
Alkaline Phosphatase 104
Vital Signs:
Vital Signs
Temp Pulse Resp BP Pulse Ox
97.6 F 105 24 120/61 95
10/11/24 08:41 10/11/24 12:50 10/11/24 12:50 10/11/24 12:50 10/11/24 12:50
I&O
10/10/24 10/11/24 10/12/24
06:59 06:59 06:59
Intake Total 1200 / 1200
Output Total 850 / 850 1250 / 1250
Balance -850 / -850 -50 / -50
Review of Systems
-
History Source: Patient and Family (reviewed with son and at bedside, many questions and concerns)
Constitutional: Reports Fever (100.2)
EENT: Reports No Symptoms Reported
Respiratory: Reports Pleurisy (very symptomatic)
Cardiac: Reports No Symptoms
Abdomen/GI: Reports No Symptoms
Genitourinary: Reports No Symptoms
Musculoskeletal: Reports No Symptoms
Physical Exam
-
General: Well Developed, Well Nourished and No Apparent Distress
HEENT: Normocephalic, Atraumatic and Moist Mucous Membranes
Respiratory: Rales (scattered rt sided atelectatic rales)
Cardiac: Regular Rhythm and S1/S2
GI: Soft, Nontender and Nondistended
Musculoskeletal: No Clubbing, No Cyanosis and No Edema
--- NOTE | 2024-10-11 15:34 | CM ---
Reviewed the chart notes. Left voice message for spouse to discuss discharge plans. PT recommends SNF/rehab. CM continues to be available to patient/family and is monitoring medical plan for needs at discharge.
Plan: Discharge to SNF/rehab prior to transitioning home. Need to discuss SNF options.
[2024-10-11] MEDS: DECADRON 4 MG IV ×2 (16:14→22:50)
--- NOTE | 2024-10-11 16:34 | W.PN.PUL3 ---
Today's Communication / Plan
-
-Treat for CAP, ROcephin and Azithromycin
-CXR
-ABG and Lactate
-Continue heparin
-If any evidence of hypoperfusion or instability, will revisit IR consult for possible catheter directed therapies
Assessment
-
84-year-old male with past medical history noted admitted through the emergency room complaining of chest discomfort and shortness of breath for the last 2 days. Found to be mildly hypoxic. Found to have a right sided large pulmonary embolism. We
were consulted for evaluation on 10/08/2024.
Acute hypoxemic respiratory failure-on 4-5 L via nasal cannula due to a right-sided PE
Submassive right-sided acute PE with RV strain
Echocardiogram 10/08/2024: Mild�moderately dilated RV with mild RV hypokinesis; Normal LVEF. Mild LVH. Flattened septum in systole consistent with RV pressure overload. Stage I diastolic dysfunction.
Troponin 0.077
proBNP 721
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
Snoring
Conditions present prior admission:
Coronary artery disease
Hypertension
Hyperlipidemia
Sending aortic aneurysm and renal aneurysm
History of white matter disease ? - per
Assessment and plan:
#1. Right sided large pulmonary embolism, possibly unprovoked however per the he is very sedentary, and has a history of falls with dizziness upon standing. 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
that he was diagnosed with which is contributing to his falls and dizziness + sedentary lifestyle. Patient reports being up-to-date with cancer screening. No previous history of VTE
-Evidence of RV function deterioration from last ECHO, elevated troponin and BNP. PERT alert was called initially- patient was not offered thrombolytics at this point due to stability and only mild RV hypokinesis and mild oxygen requirements
-Patient orthostatic with MAP below 65 when sitting/standing, improved with lying down. Minimal O2 need.
-Check ABG and Lactate. If evidence of hypoperfusion, will re-engage IR for Catheter directed therapies
-Continue heparin for now and delay transitioning, in case patient needs re-perfusion
#2. fever, elevated WBC count. Could be related to PE itself.
- In view of elevated PCT. agree with treating for CAP. Rocephin and Azithromycin
- Agree with blood cultures and U/a.
#3. Bibasilar interstitial changes. Mild in severity.
-Will need PFTs, DLCO assessment as out patient. Imaging not typical for UIP
Snoring - at risk for EILEEN, discussed with and will follow up in outpx - info left on chart
Will follow.
Subjective Data
-
Date of Service:
Date of Service: October 11, 2024
Chief Complaint: Pulmonary Follow Up
Subjective:
Patient appears confused
Review of Systems
General: Other (Ubobtainable due to mental status )
Objective Data
Data Reviewed
Vital Signs / I&O / Oxygen:
Vital Signs
Temp Pulse Resp BP Pulse Ox
97.6 F 105 24 120/61 95
10/11/24 11:10 10/11/24 12:50 10/11/24 12:50 10/11/24 12:50 10/11/24 12:50
Intake and Output
10/10/24 10/11/24 10/12/24
06:59 06:59 06:59
Intake Total 1200 / 1200
Output Total 850 / 850 1250 / 1250 1100 / 1100
Balance -850 / -850 -50 / -50 -1100 / -1100
SaO2 95
Nasal Cannula flow liters per 2
minute
Physical Exam
HEENT: Normocephalic
Cardiovascular: S1-S2 and Regular Rhythm
Respiratory: Clear and Non-Labored Respirations
GI: Soft and Non Distended
Neurology: Awake, Alert and AO x 3 (Not oriented )
Skin: Warm
Labs/Micro/Reports
Lab Data
10/11/24 05:03
10/11/24 05:03
Laboratory Results
10/11/24
05:03
APTT 83.0 H
Microbiology
10/09/24 01:01 Urine Urine Culture - Final
NO GROWTH
[2024-10-11 16:53] LABS: B.E. -3.3 mmol/L; HCO3 19.9 mmol/L (21-28); PCO2 30 mmHg (35-48); PO2 76 mmHg (83-108); pH 7.43 (7.35-7.45)
[2024-10-11] MEDS: ZITHROMAX INFUSION 250 IV (18:27)
[2024-10-11 18:45] LABS: NT-proBNP 713 pg/ml
[2024-10-11 18:59] LABS: Lactic Acid 1.3 mmol/L (0.7-2.0)
--- NOTE | 2024-10-11 19:13 | PTCARENOTE ---
Intermittently confused, redirects easily. present all day- she is repetitive with questions. Bedrest the remainder of this shift. IV Decadron given after Tylenol and seems more at ease. Stat labs sent, ABGs and PCXR completed as ordered.
Appetite good. Kept chery in this pm - He is finally sleepy- encouraging to let him sleep (so agitated last night). Chery will dc in am.
[2024-10-11 19:39] LABS: Hepatitis B Surface Antigen Negative (Negative)
[2024-10-11 19:56] LABS: Hepatitis A Antibody, Total Negative (Negative); Hepatitis B Surface Antibody Negative; Hepatitis C Antibody Negative (Negative)
[2024-10-11] MEDS: SEROQUEL 50 MG PO (21:16)
[2024-10-11] MEDS: NON-FORMULARY ITEM 1 UNIT BOTH EYES (21:16)
[2024-10-11] MEDS: ROCEPHIN 1000 MG IV (22:49)
[2024-10-11] MEDS: STERILE WATER FOR INJECTION 10 ML IV (22:50)
[2024-10-12] VITALS (14 sets, daily range): BP systolic 104–143; BP diastolic 61–115
--- NOTE | 2024-10-12 01:23 | PTCARENOTE ---
assumed care of patient. pt is oriented to self only. daughter at bedside. VSS. on 3L 94%. states pain is better. pt was able to have BM on the bedpan in the beginning of the shift. pt can be very restless in the bed, trying to get OOB many times.
daughter at bedside to help patient stay in bed at beginning of shift. after daughter left, bed alarm on. pt sleeping so far. able to take pills without issues. heparin gtt infusing at 15ml/hr. PTT in for AM. care ongoing.
[2024-10-12 03:38] LABS: Glucose - Point of Care 179 mg/dl (70-99)
[2024-10-12 04:10] LABS: Hematocrit 44.5 % (39.0-52.0); Hemoglobin 15.4 g/dL (13.0-18.0); Mean Corp Hgb Conc. 34.6 g/dL (33.0-37.0); Mean Corpuscular Hgb 29.3 pg (27.0-31.0); Mean Corpuscular Volume 84.8 fL (80.0-94.0); Mean Platelet Volume 10.3 fL (7.4-10.4); Platelet Count 236 10^3/uL (130-400); Red Blood Cell Count 5.25 10^6/uL (4.70-6.10); Red Cell Dist. Width 13.3 % (11.5-14.5); White Blood Cell Count 20.1 10^3/uL (4.8-10.8)
--- NOTE | 2024-10-12 04:11 | PTCARENOTE ---
pt super confused and restless this morning. pt has not had narcotics recently. getting agitated with staff, pulling at wires and gown. tried to reorient patient with only a little success. thinks he is 'at home and needs to hide the body
before his sees'. reoriented again. HR increasing to 130s during these episodes. alarming a-fib. EKG done, result showing a-fib with RVR. notified covering CORPORATE COMMUNICATIONS SPECIALIST of the above. pt remains on heparin gtt at 15ml/hr. bed alarm remains on. care
ongoing.
[2024-10-12 04:32] LABS: APTT 58.9 Sec (23.4-35.0)
[2024-10-12 04:33] LABS: ALT (SGPT) 45 U/L (0-50); AST (SGOT) 30 U/L (17-59); Albumin 3.3 g/dl (3.5-5.0); Alkaline Phosphatase 118 U/L (38-126); Blood Urea Nitrogen 35 mg/dl (9-20); Calcium 9.9 mg/dl (8.4-10.2); Carbon Dioxide 17 mmol/L (22-30); Chloride 111 mmol/L (98-107); Estimated Creatinine Clearance 53 ml/min; Glucose 193 mg/dl (70-99); Potassium 4.6 mmol/L (3.5-5.1); Sodium 141 mmol/L (135-145); Total Bilirubin 1.3 mg/dl (0.2-1.3); Total Protein 6.1 g/dl (6.3-8.2); eGFR 46.19
[2024-10-12] MEDS: HEPARIN 9500 UNITS IV (04:45)
--- NOTE | 2024-10-12 06:14 | PTCARENOTE ---
gottlieb removed per order.
[2024-10-12] MEDS: DECADRON 4 MG IV (08:44)
[2024-10-12] MEDS: LIDOCAINE 4% PATCH 2 PATCH TOPICAL (08:45)
[2024-10-12] MEDS: HEPARIN 25000 UNITS/250 ML IV (08:46)
[2024-10-12] MEDS: ELIQUIS 10 MG PO ×2 (12:24→20:22)
[2024-10-12] MEDS: TIMOPTIC 0.5% OPHTHALMIC SOLUTION 1 DROP BOTH EYES ×2 (12:25→20:22)
[2024-10-12] MEDS: FLOMAX 0.4 MG PO (12:25)
--- NOTE | 2024-10-12 13:04 | W.PN.PUL3 ---
Today's Communication / Plan
-
- Discontinue heparin
-Start Eliquis 10 mg twice a day 1 hour after stopping heparin
Assessment
-
84-year-old male with past medical history noted admitted through the emergency room complaining of chest discomfort and shortness of breath for the last 2 days. Found to be mildly hypoxic. Found to have a right sided large pulmonary embolism. We
were consulted for evaluation on 10/08/2024.
Acute hypoxemic respiratory failure-on 4-5 L via nasal cannula due to a right-sided PE
Submassive right-sided acute PE with RV strain
Echocardiogram 10/08/2024: Mild�moderately dilated RV with mild RV hypokinesis; Normal LVEF. Mild LVH. Flattened septum in systole consistent with RV pressure overload. Stage I diastolic dysfunction.
Troponin 0.077
proBNP 721
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
Snoring
Conditions present prior admission:
Coronary artery disease
Hypertension
Hyperlipidemia
Sending aortic aneurysm and renal aneurysm
History of white matter disease ? - per
Assessment and plan:
#1. Right sided large pulmonary embolism, likley unprovoked, as no clear major precipitating event noted. Sin has h/o DVT times 2.
-Evidence of RV function deterioration from last ECHO, elevated troponin and BNP. PERT alert was called initially- patient was not offered thrombolytics at this point due to stability and only mild RV hypokinesis and mild oxygen requirements
-ABG and Lactate normal on 10/11. Hemodynamically stable and saturating well in high 90's. Can transition to PO Eliquis, d/c heparin
-Updated patient's son and at bedside
-Pleuritic chest pain significantly improved with steroids
#2. Bibasilar pneumonia.
- In view of elevated PCT. agree with treating for CAP. Rocephin and Azithromycin
-Afebrile, saturating well. Follow-up on cultures
#3. Bibasilar interstitial changes. Mild in severity.
-Will need PFTs, DLCO assessment as out patient. Imaging not typical for UIP
#4. Paroxysmal atrial fibrillation, newly detected.
-Normal rate of around 95 205 during my evaluation, hemodynamically stable
-Patient anticoagulated on heparin, being transition to Eliquis
-Cardiology evaluation pending
Snoring - at risk for EILEEN, discussed with and will follow up in outpx - info left on chart
Will follow.
Total time spent on this consultation/encounter _40___ minutes which includes review of history, physical exam, medications, laboratory data, personal review of imaging, extensive review of outpatient records, discussion with care team and
respiratory therapy.
Subjective Data
-
Date of Service:
Date of Service: October 12, 2024
Chief Complaint: Pulmonary Follow Up
Subjective:
Patient appears more calm, comfortably sleeping in bed. Patient's and son at bedside
Review of Systems
Genitourinary: Other (Unobtainable due to mental status changes.)
Objective Data
Data Reviewed
Vital Signs / I&O / Oxygen:
Vital Signs
Temp Pulse Resp BP Pulse Ox
97.1 F 93 21 114/80 95
10/12/24 03:40 10/12/24 10:00 10/12/24 10:00 10/12/24 10:00 10/12/24 10:00
Intake and Output
10/11/24 10/12/24 10/13/24
06:59 06:59 06:59
Intake Total 1200 / 1200 2580 / 2580
Output Total 1250 / 1250 3550 / 3550
Balance -50 / -50 -970 / -970
SaO2 95
Nasal Cannula flow liters per 3
minute
Physical Exam
General: Comfortable
HEENT: Normocephalic
Cardiovascular: S1-S2
Respiratory: Clear and Non-Labored Respirations
GI: Soft and Non Distended
Skin: Warm
Labs/Micro/Reports
Lab Data
10/12/24 03:49
10/12/24 03:49
Laboratory Results
10/11/24 10/12/24 10/12/24
16:41 03:49 10:50
APTT 58.9 H Cancelled
pH 7.43
pCO2 30 L
pO2 76 L
HCO3 19.9 L
O2 Delivery Level
Microbiology
10/10/24 22:20 Urine Urine Culture - Preliminary
NO GROWTH
10/10/24 20:18 Blood/Venous Blood Culture - Preliminary
No Growth in 24 hours- Final report to follow
10/10/24 20:18 Blood/Venous Blood Culture - Preliminary
No Growth in 24 hours- Final report to follow
10/09/24 01:01 Urine Urine Culture - Final
NO GROWTH
--- NOTE | 2024-10-12 13:56 | PN.CDI ---
CDI
- -
CDI:
Physician Documentation Request
Admit Date: 10/08/24 15:21
Dear Doctor Kira,
Clinical Indicators:
Patient admitted with acute PE.
Acute hypoxic respiratory failure, POA
10/10 BRIAN, creatinine 1.9
10/10 (22:41) RN note, ' pt is AAOx1- oriented to self only. received patient in b/l mitts, pt restless and fulling at gottlieb. symptomatic fever of 100.2'
10/11 PN, 'Became very confused after received narcotic analgesic'
Based on the above, could you clarify which, if any of the following, is the most likely etiology of the confusion/altered mental status.
Acute Metabolic Encephalopathy
Toxic Metabolic Encephalopathy
Confusion only
Other, please specify
Use of terms such as suspected, likely, concern for, or probable (associated with a specific diagnosis that is being evaluated, monitored, or treated as if it exists) are acceptable and can be coded in the inpatient setting, when documented at the
time of discharge.
Thank you,
Delia Powell RN BSN
CDI Specialist
available via tiger text
Please use your independent medical judgment in providing your response.
--- NOTE | 2024-10-12 14:12 | PN.CDI ---
CDI
- -
CDI:
Physician Documentation Request
Admit Date: 10/08/24 15:21
Dear Doctor Kira,
Clinical Indicators:
Patient admitted with acute PE.
Acute hypoxic respiratory failure, POA.
10/10 Na, Cr levels:
10/10/24 10/10/24
04:56 21:19
Sodium 129 L
Creatinine 1.9 H
10/10 (22:41) RN note, ' pt is AAOx1- oriented to self only. received patient in b/l mitts, pt restless and fulling at [place]. symptomatic fever of 100.2'
10/11 PN, 'Became very confused after received narcotic analgesic'
Based on the above, could you clarify which, if any of the following, is the most likely etiology of the confusion/altered mental status.
Acute Metabolic Encephalopathy
Toxic Metabolic Encephalopathy
Confusion only
Other, please specify
Use of terms such as suspected, likely, concern for, or probable (associated with a specific diagnosis that is being evaluated, monitored, or treated as if it exists) are acceptable and can be coded in the inpatient setting, when documented at the
time of discharge.
Thank you,
Delia Powell RN BSN
CDI Specialist
available via tiger text
Please use your independent medical judgment in providing your response.
--- NOTE | 2024-10-12 14:14 | PN.CDI ---
CDI
- -
CDI:
Physician Documentation Request
Admit Date: 10/08/24 15:21
Dear Doctor Kira,
Clinical Indicators:
Patient admitted with acute PE.
10/08 RN skin/wound documentation, Sacrum Stage 2 Pressure Injury, POA
Treatment: adhesive foam dressing
Physician documentation of the type and location of wounds is required for compliant documentation. Based on the above clinical findings and your assessment, please provide the following in your progress note:
1. Location of the ulcer/wound, including laterality.
2. Type (etiology) of ulcer/wound:
- Pressure (decubitus) ulcer
- Other, please specify
3. If a pressure ulcer, please also include the stage* of the ulcer:
- Stage 1 - Skin intact, non-blanchable redness
- Stage 2 - Partial thickness loss of dermis, includes intact or open blister
- Stage 3 - Full thickness tissue not including bone, tendon or muscle
- Stage 4 - Full thickness tissue loss, including exposed bone, tendon or muscle
- Unstageable - Full thickness loss in which the base of the ulcer is covered by slough (yellow, cameron, cole, green or brown) and/or eschar (cameron, brown or black) in the wound bed.
- Unable to determine
Use of terms such as suspected, likely, concern for, or probable (associated with a specific diagnosis that is being evaluated, monitored, or treated as if it exists) are acceptable and can be coded in the inpatient setting, when documented at the
time of discharge.
Thank you,
Delia Powell RN BSN
CDI Specialist
available via tiger text
Please use your independent medical judgment in providing your response.
*Source: National Pressure Ulcer Advisory Panel (NPUAP)
[2024-10-12 14:55] LABS: Hepatitis B Core Ab, IgM Negative (Negative)
[2024-10-12 15:07] LABS: Hepatitis B Core Ab, Total Negative (Negative)
--- NOTE | 2024-10-12 15:23 | CON.CAR ---
Addendum entered and electronically signed by Puneet Ellison MD 10/12/24 16:57:
Patient seen and examined
Agree with PA-C note assessment
Agree with PA-C plan
No atrial fibrillation noted
Exam:
Alert and x 3
Nonfocal neurologically
JVP 6
Cor irregularly irregular
Lungs clearbilaterally
Abdomen soft nontender positive bowel and
Impression:
Admitted with chest pain and PE 09/30/2024
Acute distal right main PE extending into the lobar branches by CT 10/08/2024
Newly diagnosed paroxysmal atrial fibrillation
New start to chronic Eliquis OAC
Elevated troponin
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
HTN
Hyperlipidemia
Thoracic aortic aneurysm, 4.3 cm by CTA 10/08/2024
Echo 09/30/2024: EF 55 to 60%, flattened septum in systole consistent with RV pressure overload, stage I diastolic dysfunction, mild aortic regurgitation, normal aortic root diameter indexed to body surface area, compared to echo from 09/13/2019 the RV
appears more hypokinetic
Plan:
-ECG reviewed by me looks like atrial fibrillation with RVR
-Telemetry reviewed by me, heart rates are now in the 80s to the 90s. Will try adding Toprol-XL 12.5 mg daily
-Patient was started on Eliquis 10 mg BID and following completion of PE protocol he should remain on lifelong therapy 2.5 mg BID (age 82, Cre 1.5) unless his Cre improved to a value of less than 1.5 in which case he would transition to 5 mg BID.
We can follow-up on this as an outpatient
-EF preserved by echo with report reviewed by me above
-Initial troponin was 0.077 and trended down thereafter. Will manage as a nonischemic myocardial injury troponin elevation due to PE
-Patient with a known thoracic aortic aneurysm that was stable by CTA on 10/08/2024
Original Note:
Consultation
Consultation Request
Date/Time Consultation Requested: 10/12/24
Date/Time Consultation Performed: 10/12/24
Requesting Provider: Dr. Malone
Performing Provider: Dr. Ellison
Reason for Consultation: Newly diagnosed Afib
Medical History
-
History of Present Illness:
Patient came to ER on 10/08/2024 with a right sided chest pain and was found to have PE, cardiology is now consulted for evidence of new A-fib. Patient came to the ER with right-sided chest pain on 10/08/2024 and CTA of the chest revealed a large
pulmonary embolism getting in the distal right main pulmonary artery and extending into the lobar branches. A PERT alert was called and urgent echo performed as noted above. Patient was not offered thrombolytic therapy due to his hemodynamic
stability and there was only evidence of mild RV hypokinesis on echo. Patient has also continued to have mild oxygen requirements. Patient was started on heparin gtt and has now transition to Eliquis 10 mg BID. This morning patient was noted to
have paroxysmal atrial fibrillation and so cardiology was consulted. Patient is asymptomatic. There is no known history of A-fib.
PMH:
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
HTN
Hyperlipidemia
Thoracic aortic aneurysm, 4.3 cm by CTA 10/08/2024
Past Medical History
Past Medical History: Other (in HPI)
Past Surgical History: Cholecystectomy and Orthopedic
Social History
Tobacco: Former Smoker
Alcohol: None
Drug: None
Personal:
Living: With Family
Family History
Family History: Reviewed & Not Pertinent
Allergies / Home Medications
Allergy/AdvReac Type Severity Reaction Status Date / Time
cat dander Allergy Itching-rash, Verified 10/08/24 18:03
runny nose
dog dander Allergy Itching-rash, Verified 10/08/24 18:03
runny nose
grass pollen Allergy Itching-rash, Verified 10/08/24 18:03
runny nose
hydrochlorothiazide Allergy Itching Verified 10/08/24 08:01
tree and shrub pollen Allergy Itching-rash, Verified 10/08/24 18:03
runny nose
�Medication �Instructions �Recorded �Confirmed �Type
valsartan 80 mg tablet 160 mg PO BID Blood Pressure 04/16/17 10/08/24 History
amlodipine 5 mg tablet 5 mg PO HS Blood Pressure 10/08/24 10/08/24 History
bimatoprost 0.03 % eye drops 1 drp BOTH EYES DAILY Eye Condition 10/08/24 10/08/24 History
cholecalciferol (vitamin D3) 125 125 mcg PO MOFR Supplement 10/08/24 10/08/24 History
mcg (5,000 unit) tablet (Vitamin
D3)
coenzyme Q10 200 mg capsule (Co 200 mg PO SUTUTHSA@1800 Supplement 10/08/24 10/08/24 History
Q-10)
dextran 70-hypromellose eye drops 1 drp BOTH EYES QIDPRN PRN DRY EYE 10/08/24 10/08/24 History
in a dropperette (Artificial Tears
(PF) drops in a dropperette)
diphenhydramine HCl 25 mg capsule 25 mg PO DAILYPRN PRN ITCHING 10/08/24 10/08/24 History
(Benadryl)
ezetimibe 10 mg tablet 10 mg PO DAILY High Cholesterol 10/08/24 10/08/24 History
fexofenadine 180 mg tablet 180 mg PO DAILY Allergies 10/08/24 10/08/24 History
magnesium oxide 250 mg PO DAILY Electrolyte 10/08/24 10/08/24 History
Repletion
pitavastatin calcium 1 mg tablet 1 mg PO DAILY High Cholesterol 10/08/24 10/08/24 History
(Livalo)
timolol maleate 0.5 % eye drops 1 drp BOTH EYES BID Eye Condition 10/08/24 10/08/24 History
Review of Systems
-
History Source: Patient
All other systems: Negative unless noted
Physical Exam
Vital Signs
Temp Pulse Resp BP Pulse Ox
98.0 F 82 21 110/61 97
10/12/24 11:20 10/12/24 14:00 10/12/24 14:00 10/12/24 14:00 10/12/24 14:00
GEN: NAD. AAO to person, place and situation
HEENT: EOMI, MMM
LUNGS: 3 L NC. CTA B/L, no wheeze
CV: Afib on tele. Irreg irreg, S1/S2, 07/19 syst LSB
ABD: soft, BS+, NT, ND
EXT: No clubbing, cyanosis, lesions or edema B/L
NEURO: Gross non-focal
SKIN: No rash
Lab Results
10/12/24 03:49
10/12/24 03:49
Troponin I Cancelled 10/09/24 10:58
[id number]-[id number] Pept 713 pg/ml 10/11/24 17:57
Impression / Plan
-
PCP: Dr. Patrick
Cardiology: Dr. Moe
Impression:
Admitted with chest pain and PE 09/30/2024
Acute distal right main PE extending into the lobar branches by CT 10/08/2024
Newly diagnosed paroxysmal atrial fibrillation
New start to chronic Eliquis OAC
Elevated troponin
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
HTN
Hyperlipidemia
Thoracic aortic aneurysm, 4.3 cm by CTA 10/08/2024
Echo 09/30/2024: EF 55 to 60%, flattened septum in systole consistent with RV pressure overload, stage I diastolic dysfunction, mild aortic regurgitation, normal aortic root diameter indexed to body surface area, compared to echo from 09/13/2019 the RV
appears more hypokinetic
Plan:
-Patient came to ER on 10/08/2024 with a right sided chest pain and was found to have PE, cardiology is now consulted for evidence of new A-fib. Patient came to the ER with right-sided chest pain on 10/08/2024 and CTA of the chest revealed a large
pulmonary embolism getting in the distal right main pulmonary artery and extending into the lobar branches. A PERT alert was called and urgent echo performed as noted above. Patient was not offered thrombolytic therapy due to his hemodynamic
stability and there was only evidence of mild RV hypokinesis on echo. Patient has also continued to have mild oxygen requirements. Patient was started on heparin gtt and has now transition to Eliquis 10 mg BID. This morning patient was noted to
have paroxysmal atrial fibrillation and so cardiology was consulted. Patient is asymptomatic. There is no known history of A-fib.
-ECG reviewed by me looks like atrial fibrillation with RVR
-Telemetry reviewed by me, heart rates are now in the 80s to the 90s. Will try adding Toprol-XL 12.5 mg daily
-Patient was started on Eliquis 10 mg BID and following completion of PE protocol he should remain on lifelong therapy 2.5 mg BID (age 82, Cre 1.5) unless his Cre improved to a value of less than 1.5 in which case he would transition to 5 mg BID.
We can follow-up on this as an outpatient
-EF preserved by echo with report reviewed by me above
-Initial troponin was 0.077 and trended down thereafter. Will manage as a nonischemic myocardial injury troponin elevation due to PE
-Patient with a known thoracic aortic aneurysm that was stable by CTA on 10/08/2024
--- NOTE | 2024-10-12 15:28 | PTCARENOTE ---
Addendum entered by Jodi Conrad RN 10/12/24 19:16:
Weaned off o2 94% on RAIR while awake.
Original Note:
Remains sleepy all day-no agitation noted and easily arousable- fed himself huge breakfast, oriented x3. Remains on 2L NC- 95%. Denies pain today. Flynn removed previous shift- DTv 1200- Was incontinent small amt urine at 1130- cleansed and placed
#30 condom cath- voided once more this afternoon. PO fluids encouraged. Heparin gtt stopped and Eliquis initiated as ordered. Remains in AF 90s all day. Family present most of the day.
[2024-10-12] MEDS: TOPROL XL 12.5 MG PO (16:41)
[2024-10-12] MEDS: DECADRON 2 MG IV ×2 (16:41→23:51)
[2024-10-12] MEDS: ZITHROMAX INFUSION 250 IV (16:42)
--- NOTE | 2024-10-12 18:20 | W.PN.HOSP.TC ---
Today's Communication/Plan
-
recheck labs in AM
Physical Therapy
begin dc planning, would probably benefit from SNF rehab, though most likely there will be resistance
taper steroids
taper Seroquel
Assessment / Plan
Assessment / Plan
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 Found
to have large distal right main pulmonary artery embolism.
PLAN:
#Acute hypoxic respiratory failure
#Large distal right main pulmonary embolism
#LE DVT
� PERT team was alerted
� Flattened septum on echo, EF 55 to 60%
� No intervention as per interventional radiology
� Avoid strenuous activity
- OK for OOb to chair
� Continued heparin drip for 48 hours - now transitioned to Eliquis
� Pulmonary consulted reviewed with Dr. Camacho
recommendation is to continue current management
� Will need hematological evaluation outpatient
� Wean O2 as tolerated
currently 94% on room air
� Hold antihypertensives for now, pt drops BP when gets out of bed
130/77 lying flat, will need to follow once begins ambulating
Severe pleuritic chest pain
symptoms improved with steroids, will begin to taper
New onset A.Fib, seen by Puneet Ellison
consulted cardio, started on Toprol XL 12.5 mg daily
Probable post obstructive PNA
continues on Azithromycin and Rocephin
continue for now and change to oral at time of dc
Confusion is better today
will taper Seroquel, hopefully stop totally if mentation continues to improve
#Pleuritic chest pain
� Likely secondary to PE
� Pain control monitoring blood pressures closely
# RUQ abd pain
#Transaminitis
-f/u US: Mild hepatomegaly with findings suggesting diffuse fatty liver.
Prior cholecystectomy. Mildly enlarged common bile duct which may be the sequela of prior cholecystectomy. No findings to suggest intrahepatic biliary tract dilatation.
Pancreas, abdominal aorta and IVC significantly obscured, most likely by overlying bowel gas.
Mild left renal collecting system and proximal left ureteral dilatation. Please see above comments.
#Hyponatremia
# Mild, Na 132
� Monitor
#BRIAN on CKD
� will stop IVF and follow BP
� Monitor BMP closely
#Urinary Retention
#Urinary Discomfort
#Asymptomatic bacteriuria
- Significant elevated WBC (my impression would be related to pleuritic symptoms, but elevated Procalcitonin does raise concern for infectious etiology and Rocephin resumed last evening, noted input from Pulmonary, , will continue Rocephin and
Azithromycin added), unfortunately starting steroids will make following WBC more complex
-retention worsened with opiates, they have been stopped
-tamsulosin
� Flynn has been removed
Sacrum Stage 2 Pressure Injury, POA
Acute Metabolic Encephalopathy
multifactorial - submassive PE, severe pleuritic pain, pneumonia, symptoms worsened with use of narcotic analgesics used to control pain
#Elevated troponin
� Most likely nonischemic myocardial injury secondary to pulmonary embolism
� Trend troponins until peak
� No wall motion abnormality on echo
#Leukocytosis
� Most likely reactive
Monitor fever curve, white count
#CKD
� Monitor
#Hypertension
with BP currently low, most liklely related to the extensive PE
#Hyperlipidemia
#CAD
� Hold antihypertensives for now with dropping bp when gets out of bed
� Can continue statin
#DVT prophylaxis
� Eliquis has been started, Heparin stopped
reviewed with and son in room
complex situation
very extensive visit
Anticipated Discharge: 24 - 48 hours
Subjective/Interval History
-
Date of Service: October 12, 2024
Pleuritic pain has essentially resolved with steroids
Objective Data
-
Labs:
Laboratory Results
10/12/24
10:50
APTT Cancelled
Vital Signs:
Vital Signs
Temp Pulse Resp BP Pulse Ox
97.7 F 82 21 110/61 97
10/12/24 15:10 10/12/24 14:00 10/12/24 14:00 10/12/24 14:00 10/12/24 14:00
I&O
10/11/24 10/12/24 10/13/24
06:59 06:59 06:59
Intake Total 1200 / 1200 2580 / 2580
Output Total 1250 / 1250 3550 / 3550
Balance -50 / -50 -970 / -970
Review of Systems
-
History Source: Patient and Family (reviewed with son and at bedside, many questions and concerns)
Constitutional: Denies Fever (afebrile 36 hrs)
EENT: Reports No Symptoms Reported
Respiratory: Reports Pleurisy (essentially resolved post starting steroids)
Cardiac: Reports No Symptoms
Abdomen/GI: Reports No Symptoms
Genitourinary: Reports No Symptoms
Musculoskeletal: Reports No Symptoms
Physical Exam
-
General: Well Developed, Well Nourished and No Apparent Distress
HEENT: Normocephalic, Atraumatic and Moist Mucous Membranes
Respiratory: Rales (scattered rt sided atelectatic rales essentially resolved)
Cardiac: S1/S2 and Irregular Rhythm
GI: Soft, Nontender and Nondistended
Musculoskeletal: No Clubbing, No Cyanosis and No Edema
[2024-10-12] MEDS: SEROQUEL 25 MG PO (20:22)
[2024-10-12] MEDS: NON-FORMULARY ITEM 1 UNIT BOTH EYES (20:23)
--- NOTE | 2024-10-12 23:42 | PTCARENOTE ---
assumed care of patient. pt is AAOx3- able to make needs known. much more with it compared to previous nights. pt states he does not remember any of the past night events. super pleasant and cooperative now. able to take pills whole with water
without issues. VSS. on 2L 94%. no complaints of pain. care ongoing.
[2024-10-12] MEDS: STERILE WATER FOR INJECTION 10 ML IV (23:52)
[2024-10-12] MEDS: ROCEPHIN 1000 MG IV (23:52)
[2024-10-13] VITALS (13 sets, daily range): BP systolic 121–165; BP diastolic 76–104
[2024-10-13 06:03] LABS: ALT (SGPT) 136 U/L (0-50); AST (SGOT) 163 U/L (17-59); Albumin 2.8 g/dl (3.5-5.0); Alkaline Phosphatase 166 U/L (38-126); Blood Urea Nitrogen 43 mg/dl (9-20); Calcium 10.3 mg/dl (8.4-10.2); Carbon Dioxide 22 mmol/L (22-30); Chloride 112 mmol/L (98-107); Estimated Creatinine Clearance 57 ml/min; Glucose 199 mg/dl (70-99); Potassium 4.6 mmol/L (3.5-5.1); Sodium 141 mmol/L (135-145); Total Protein 5.5 g/dl (6.3-8.2); eGFR 50.18
[2024-10-13] MEDS: LIDOCAINE 4% PATCH TOPICAL (07:58)
[2024-10-13] MEDS: ELIQUIS 10 MG PO ×2 (07:59→19:50)
[2024-10-13] MEDS: DECADRON 2 MG IV ×2 (07:59→19:51)
[2024-10-13] MEDS: FLOMAX 0.4 MG PO (07:59)
[2024-10-13] MEDS: TOPROL XL 12.5 MG PO (08:00)
[2024-10-13] MEDS: TIMOPTIC 0.5% OPHTHALMIC SOLUTION 1 DROP BOTH EYES ×2 (08:01→19:53)
--- NOTE | 2024-10-13 08:57 | VNURNOTE ---
Chart reviewed.� Patient is current with [facility] nursing.� Will continue to follow hospital course and DC plans.
--- NOTE | 2024-10-13 09:38 | W.PN.PUL3 ---
Today's Communication / Plan
-
-Check LFTs in AM again
-Discharge planning
Assessment
-
84-year-old male with past medical history noted admitted through the emergency room complaining of chest discomfort and shortness of breath for the last 2 days. Found to be mildly hypoxic. Found to have a right sided large pulmonary embolism. We
were consulted for evaluation on 10/08/2024.
Acute hypoxemic respiratory failure-on 4-5 L via nasal cannula due to a right-sided PE
Submassive right-sided acute PE with RV strain
Echocardiogram 10/08/2024: Mild�moderately dilated RV with mild RV hypokinesis; Normal LVEF. Mild LVH. Flattened septum in systole consistent with RV pressure overload. Stage I diastolic dysfunction.
Troponin 0.077
proBNP 721
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
Snoring
Conditions present prior admission:
Coronary artery disease
Hypertension
Hyperlipidemia
Sending aortic aneurysm and renal aneurysm
History of white matter disease ? - per
Assessment and plan:
#1. Right sided large pulmonary embolism, likley unprovoked, as no clear major precipitating event noted. Son has h/o DVT times 2.
-Evidence of RV function deterioration from last ECHO, elevated troponin and BNP. PERT alert was called initially- patient was not offered thrombolytics at this point due to stability and only mild RV hypokinesis and mild oxygen requirements
-ABG and Lactate normal on 10/11. Hemodynamically stable and saturating well in high 90's. Transitioned to Eliquis now
-Updated patient's at bedside
-Pleuritic chest pain significantly improved with steroids
#2. Bibasilar pneumonia.
- In view of elevated PCT. agree with treating for CAP. Rocephin and Azithromycin
-Afebrile, saturating well. Follow-up on cultures
-Cough quite improved
#3. Bibasilar interstitial changes. Mild in severity.
-Will need PFTs, DLCO assessment as out patient. Imaging not typical for UIP
#4. Paroxysmal atrial fibrillation, newly detected.
-Normal rate of around 95-105 during my evaluation, hemodynamically stable
-Patient on Eliquis
-Cardiology service on case
-Started on Metoprolol
#5. Mildly elevated LFTs.
-?Drug induced
-Monitor for now.
Snoring - at risk for EILEEN, discussed with and will follow up in outpx - info left on chart
Will follow.
Total time spent on this consultation/encounter _30___ minutes which includes review of history, physical exam, medications, laboratory data, personal review of imaging, extensive review of outpatient records, discussion with care team and
respiratory therapy.
Subjective Data
-
Date of Service:
Date of Service: October 13, 2024
Chief Complaint: Pulmonary Follow Up
Subjective:
More comfortable. On room air, Cough and pleuritic pain improved.
Review of Systems
Genitourinary: Other (NO new symptoms reported )
Objective Data
Data Reviewed
Vital Signs / I&O / Oxygen:
Vital Signs
Temp Pulse Resp BP Pulse Ox
97.5 F 74 24 165/104 94
10/13/24 07:54 10/13/24 08:00 10/13/24 08:00 10/13/24 08:00 10/13/24 08:00
Intake and Output
10/12/24 10/13/24 10/14/24
06:59 06:59 06:59
Intake Total 2580 / 2580
Output Total 3550 / 3550 800 / 800
Balance -970 / -970 -800 / -800
SaO2 94
Nasal Cannula flow liters per 2
minute
Physical Exam
General: Comfortable
HEENT: Normocephalic
Cardiovascular: S1-S2
Respiratory: Clear and Non-Labored Respirations
GI: Soft and Non Distended
Neurology: Awake, Alert and AO x 3 (Not oriented )
Skin: Warm
Labs/Micro/Reports
Lab Data
10/12/24 03:49
10/13/24 05:26
Laboratory Results
10/12/24
10:50
APTT Cancelled
Microbiology
10/10/24 20:18 Blood/Venous Blood Culture - Preliminary
No Growth in 48 hours- Final report to follow
10/10/24 20:18 Blood/Venous Blood Culture - Preliminary
No Growth in 48 hours- Final report to follow
10/10/24 22:20 Urine Urine Culture - Preliminary
NO GROWTH
10/09/24 01:01 Urine Urine Culture - Final
NO GROWTH
--- NOTE | 2024-10-13 10:40 | W.PN.HOSP.TC ---
Today's Communication/Plan
-
change steroids to oral
stop Seroquel
Lasix x 1 today
follow labs
continue Eliquis
requesting short term SNF, this would be appropriate
Assessment / Plan
Assessment / Plan
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 Found to
have large distal right main pulmonary artery embolism.
PLAN:
#Acute hypoxic respiratory failure
essentially resolved
#Large distal right main pulmonary embolism
#LE DVT
� Flattened septum on echo, EF 55 to 60%
� No intervention as per interventional radiology
� Avoid strenuous activity
- OK for OOb to chair
� Continued heparin drip for 48 hours - now transitioned to Eliquis
� Pulmonary consulted reviewed with Dr. Camacho
recommendation is to continue current management
� Will need hematological evaluation outpatient
� Wean O2 as tolerated
currently 94% on room air
� Elevated BP, will defer antihypertensives to cardio
Severe pleuritic chest pain
symptoms improved with steroids, will taper
New onset A.Fib, seen by Puneet Ellison
consulted cardio, started on Toprol XL 12.5 mg daily
Probable post obstructive/pleuritic PNA
continues on Azithromycin and Rocephin
continue for now and change to oral at time of dc
Confusion is better today
will stop Seroquel, hopefully stop totally if mentation continues to improve
#Pleuritic chest pain
� Likely secondary to PE
� Pain control monitoring blood pressures closely
# RUQ abd pain
#Transaminitis
most likely due to PE with passive congestion
-f/u US: Mild hepatomegaly with findings suggesting diffuse fatty liver.
Prior cholecystectomy. Mildly enlarged common bile duct which may be the sequela of prior cholecystectomy. No findings to suggest intrahepatic biliary tract dilatation.
Pancreas, abdominal aorta and IVC significantly obscured, most likely by overlying bowel gas.
Mild left renal collecting system and proximal left ureteral dilatation. Please see above comments.
#Hyponatremia
# Mild, Na 141
� resolved
#BRIAN on CKD
� will stop IVF and follow BP
� Monitor BMP closely
#Urinary Retention
#Urinary Discomfort
#Asymptomatic bacteriuria
- Significant elevated WBC (my impression would be related to pleuritic symptoms, but elevated Procalcitonin does raise concern for infectious etiology and Rocephin resumed last evening, noted input from Pulmonary, , will continue Rocephin and
Azithromycin added), unfortunately starting steroids will make following WBC more complex
-retention worsened with opiates, they have been stopped
-tamsulosin
� Flynn has been removed
Sacrum Stage 2 Pressure Injury, POA
Acute Metabolic Encephalopathy
multifactorial - submassive PE, severe pleuritic pain, pneumonia, symptoms worsened with use of narcotic analgesics used to control pain
#Elevated troponin
� Most likely nonischemic myocardial injury secondary to pulmonary embolism
� Trend troponins until peak
� No wall motion abnormality on echo
#Leukocytosis
� Most likely reactive
Monitor fever curve, white count
hyperglycemia from steroids
will follow as tapered
#CKD
� Monitor
#Hypertension
with BP currently low, most likely related to the extensive PE
#Hyperlipidemia
#CAD
� Hold antihypertensives for now with dropping bp when gets out of bed
� Can continue statin
#DVT prophylaxis
� Eliquis has been started, Heparin stopped
reviewed with and son Nic in room, call placed to christa Arredondo MD
complex situation
very extensive visit
Anticipated Discharge: 24 - 48 hours
Subjective/Interval History
-
Date of Service: October 13, 2024
Awake, alert, conversant
Pain markedly reduced
Objective Data
-
Labs:
Laboratory Results
10/13/24
05:26
Sodium 141
Potassium 4.6
Chloride 112 H
Carbon Dioxide 22
BUN 43 H
Creatinine 1.4 H
Glucose 199 H
Calcium 10.3 H
Total Bilirubin 1.0
AST 163 H
ALT 136 H
Alkaline Phosphatase 166 H
Vital Signs:
Vital Signs
Temp Pulse Resp BP Pulse Ox
97.5 F 88 30 145/90 94
10/13/24 07:54 10/13/24 10:00 10/13/24 10:00 10/13/24 10:00 10/13/24 10:00
I&O
10/12/24 10/13/24 10/14/24
06:59 06:59 06:59
Intake Total 2580 / 2580
Output Total 3550 / 3550 800 / 800
Balance -970 / -970 -800 / -800
Review of Systems
-
History Source: Patient and Family (reviewed with son and at bedside, many questions and concerns)
Constitutional: Denies Fever (afebrile 36 hrs)
EENT: Reports No Symptoms Reported
Respiratory: Reports Pleurisy (today fully resolved post starting steroids)
Cardiac: Reports No Symptoms
Abdomen/GI: Reports No Symptoms
Genitourinary: Reports No Symptoms
Musculoskeletal: Reports No Symptoms
Physical Exam
-
General: Well Developed, Well Nourished and No Apparent Distress
HEENT: Normocephalic, Atraumatic and Moist Mucous Membranes
Respiratory: Rales (scattered rt sided atelectatic rales essentially resolved)
Cardiac: S1/S2 and Irregular Rhythm
GI: Soft, Nontender and Nondistended
Musculoskeletal: No Clubbing and No Cyanosis; Negative No Edema (trace)
[2024-10-13] MEDS: LASIX 20 MG IV (10:48)
[2024-10-13] MEDS: COLACE 100 MG PO ×2 (11:01→19:50)
[2024-10-13] MEDS: TYLENOL 650 MG PO (11:02)
[2024-10-13] MEDS: MILK OF MAGNESIA 30 ML PO (11:02)
--- NOTE | 2024-10-13 12:58 | W.PN.CARDCBS ---
Addendum entered and electronically signed by Martinez Moe MD 10/13/24 14:05:
I saw and examined the patient.
The Light Oil Operator's note was reviewed and I agree with the note.
Comment:
GEN: No distress, awake, Ox3
HEENT: supple, anicteric, mmm
LUNGS: CTA, no wheezes/rales
CV: Irreg, S1/S2, 1/6 syst LSB, no gallop
ABD: soft, BS+, NT/ND
EXT: No edema
NEURO: Gross non-focal
SKIN: No rash
Plan:
Remains in atrial fibrillation in the setting of acute pulmonary embolism. Continue a strategy of rate control. Increase Toprol to 12.5 mg p.o. twice daily.
Continue Eliquis. Will need likely lifelong anticoagulation. Based on creatinine will need to decide his long-term dose. If creatinine is over 1.5 dosing will likely be 2.5 mg p.o. twice daily after he is treated for short period of time with
high-dose Eliquis.
Agree with diuresis today. Check proBNP in AM.
Unsure of the etiology of increasing LFTs. Ultrasound consistent with fatty liver.
Original Note:
Today's Communication / Plan
-
Check daily weights
Increased dose of Toprol XL to 12.5 mg BID
Impression / Plan
-
PCP: Dr. Patrick
Cardiology: Dr. Moe
Impression:
Admitted with chest pain and PE 09/30/2024
Acute distal right main PE extending into the lobar branches by CT 10/08/2024
Newly diagnosed paroxysmal atrial fibrillation
New start to chronic Eliquis OAC
Elevated troponin
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
HTN
Hyperlipidemia
Thoracic aortic aneurysm, 4.3 cm by CTA 10/08/2024
Echo 09/30/2024: EF 55 to 60%, flattened septum in systole consistent with RV pressure overload, stage I diastolic dysfunction, mild aortic regurgitation, normal aortic root diameter indexed to body surface area, compared to echo from 09/13/2019 the RV
appears more hypokinetic
Plan:
-Tele reviewed by me and remains in Afib with HRs up to 110s at times, but he is asymptomatic.
-Will increase Toprol XL to 12.5 mg BID on 10/13/24, orders placed by me.
-Patient was started on Eliquis 10 mg BID and following completion of PE protocol he should remain on lifelong therapy 5 mg BID (age 82, Cre 1.4). If at any point Cre improved to a value of greater than or equal to 1.5 then he would transition to
2.5 mg BID. We can follow-up on this as an outpatient
-EF preserved by echo with report reviewed by me above
-pro-BNP 713 on 10/11/24 compared to 721 on admission. LFTs increased on labs 10/13/24, reviewed by me. Pulm ordered Lasix 20 mg IV x1. Daily weights ordered by me 10/13/24.
-Initial troponin was 0.077 and trended down thereafter. Will manage as a nonischemic myocardial injury troponin elevation due to PE
-Patient with a known thoracic aortic aneurysm that was stable by CTA on 10/08/2024
HPI: Patient came to ER on 10/08/2024 with a right sided chest pain and was found to have PE, cardiology is now consulted for evidence of new A-fib. Patient came to the ER with right-sided chest pain on 10/08/2024 and CTA of the chest revealed a
large pulmonary embolism getting in the distal right main pulmonary artery and extending into the lobar branches. A PERT alert was called and urgent echo performed as noted above. Patient was not offered thrombolytic therapy due to his hemodynamic
stability and there was only evidence of mild RV hypokinesis on echo. Patient has also continued to have mild oxygen requirements. Patient was started on heparin gtt and has now transition to Eliquis 10 mg BID. This morning patient was noted to
have paroxysmal atrial fibrillation and so cardiology was consulted. Patient is asymptomatic. There is no known history of A-fib.
Progress Note - Seed Technician
Subjective
Date of Service: October 13, 2024
He is more alert today
Objective
Labs:
10/12/24 03:49
10/13/24 05:26
Labs
Hgb 15.4 g/dL (13.0-18.0) 10/12/24 03:49
Hct 44.5 % (39.0-52.0) 10/12/24 03:49
Plt Count 236 10^3/uL (130-400) 10/12/24 03:49
APTT Cancelled 10/12/24 10:50
Sodium 141 mmol/L (135-145) 10/13/24 05:26
Potassium 4.6 mmol/L (3.5-5.1) 10/13/24 05:26
BUN 43 mg/dl (9-20) H 10/13/24 05:26
Creatinine 1.4 mg/dL (0.7-1.3) H 10/13/24 05:26
Glucose 199 mg/dl (70-99) H 10/13/24 05:26
Vital Signs and I&O:
Vital Signs
Temp Pulse Resp BP Pulse Ox
97.8 F 101 27 135/90 92
10/13/24 11:34 10/13/24 12:00 10/13/24 12:00 10/13/24 12:00 10/13/24 12:00
Vital Signs
Temp Pulse Resp BP Pulse Ox
97.8 F 101 27 135/90 92
10/13/24 11:34 10/13/24 12:00 10/13/24 12:00 10/13/24 12:00 10/13/24 12:00
Intake & Output
10/11/24 10/12/24 10/13/24 10/14/24
06:59 06:59 06:59 06:59
Intake Total 1200 / 1200 2580 / 2580
Output Total 1250 / 1250 3550 / 3550 800 / 800
Balance -50 / -50 -970 / -970 -800 / -800
Physical Exam
Physical Exam
GEN: NAD. AAO to person, place and situation
HEENT: MMM
LUNGS: 3 L NC. No audible wheeze
CV: Afib on tele. Irreg irreg
ABD: ND
EXT: No edema B/L
NEURO: Gross non-focal
SKIN: No rash
--- NOTE | 2024-10-13 14:10 | PTCARENOTE ---
Patient AOx3. Patient is forgetful at times. Bed and chair alarm on and audible. Patient on 3L NC. A fib with PVC's on monitor. +1 B/L LE edema. Weak pedal pulses. Condom cath draining yellow urine. See MAR for bowel regimen. Assist x2 when OOB.
Patients at bedside throughout shift. Call lawton within reach, bed in lowest position, and bed of wheels locked.
--- NOTE | 2024-10-13 15:01 | CM ---
Reviewed the chart notes and spoke with the patient, spouse, and son at the bedside. Discussed discharge plans. Family requesting a referral be sent to [facility], [facility], and [facility]. [facility]
continues to be available to patient/family and is monitoring medical plan for needs at discharge.
Plan: Discharge to acute vs snf when medically stable.
[2024-10-13] MEDS: ZITHROMAX INFUSION 250 IV (17:31)
[2024-10-13] MEDS: NON-FORMULARY ITEM 1 UNIT BOTH EYES (19:52)
[2024-10-13] MEDS: ROCEPHIN 1000 MG IV (23:43)
[2024-10-13] MEDS: STERILE WATER FOR INJECTION 10 ML IV (23:43)
[2024-10-14] VITALS (16 sets, daily range): BP systolic 112–158; BP diastolic 68–97; PULSE 106–110; O2SAT 90–97; BMI 31.5
--- NOTE | 2024-10-14 04:32 | PTCARENOTE ---
No acute events overnight. Remained on room air. AAO x2 disoriented to place.
[2024-10-14 04:52] LABS: ALT (SGPT) 423 U/L (0-50); AST (SGOT) 428 U/L (17-59); Albumin 2.9 g/dl (3.5-5.0); Alkaline Phosphatase 217 U/L (38-126); Blood Urea Nitrogen 46 mg/dl (9-20); Carbon Dioxide 22 mmol/L (22-30); Chloride 109 mmol/L (98-107); Estimated Creatinine Clearance 57 ml/min; Glucose 224 mg/dl (70-99); Potassium 4.6 mmol/L (3.5-5.1); Sodium 140 mmol/L (135-145); Total Bilirubin 1.2 mg/dl (0.2-1.3); Total Protein 5.7 g/dl (6.3-8.2); eGFR 50.18
[2024-10-14 04:59] LABS: NT-proBNP 2670 pg/ml
[2024-10-14] MEDS: ELIQUIS 10 MG PO ×2 (09:39→19:23)
[2024-10-14] MEDS: DECADRON 2 MG IV (09:39)
[2024-10-14] MEDS: FLOMAX 0.4 MG PO (09:39)
[2024-10-14] MEDS: LIDOCAINE 4% PATCH TOPICAL (09:40)
[2024-10-14] MEDS: COLACE 100 MG PO ×2 (09:40→19:23)
[2024-10-14] MEDS: TOPROL XL 12.5 MG PO ×2 (09:40→15:57)
[2024-10-14] MEDS: MILK OF MAGNESIA 30 ML PO (09:41)
[2024-10-14] MEDS: TIMOPTIC 0.5% OPHTHALMIC SOLUTION 1 DROP BOTH EYES ×2 (09:41→19:24)
--- NOTE | 2024-10-14 14:20 | CM ---
Patient with Dx pulmonary embolism, new Afib. Room air. Receiving IV Lasix, IV Abx. PT reommends skilled rehab. OT Eval pending.
Spoke with [facility]; they will not have an available bed at [facility] until next 09/19, and patient was not reviewed for acceptance. If patient wants [facility] they will review the referral.
Spoke with patient and Cindy; Cindy was hoping for [facility] however understands that they will not be accepting due to bed availability. Offered referrals to other acute rehabs however wants patient to stay in [place].
Provided update that [facility] accepted- they are agreeable to that plan.
Message from Dr Malone; patient likely to be ready for d/c on Sun /.
Spoke with Nickie, [facility]; they can accept pending bed availability at time of d/c. Nickie requests CM contact her tomorrow for bed availability on Sun 10/17.
Plan contact [facility] tomorrow for bed availability for Sun 10/17.
Plan [facility] when medically ready and bed available.
--- NOTE | 2024-10-14 14:21 | W.PN.CARDCBS ---
Addendum entered and electronically signed by Martinez Moe MD 10/14/24 14:55:
I saw and examined the patient.
The Sewage Treatment Plant Operator's note was reviewed and I agree with the note.
Comment:
GEN: No distress, awake, Ox3
HEENT: supple, anicteric, mmm
LUNGS: CTA, no wheezes/rales
CV: Irreg, S1/S2, 1/6 syst LSB, no gallop
ABD: soft, BS+, NT/ND
EXT: No edema
NEURO: Gross non-focal
SKIN: No rash
Plan:
Overall feeling relatively well. A-fib rates are mildly elevated. Increase Toprol to 25 mg p.o. twice daily.
Would diurese with Lasix 40 mg IV daily. Creatinine overall stable at 1.4.
Continue Eliquis.
Liver function tests continue to rise. Etiology unclear. Would attempt to diurese if this is passive congestion although he does not appear to be markedly volume overloaded.
proBNP is elevated.
Original Note:
Today's Communication / Plan
-
Lasix 40 mg IV x1 now then daily
Increased Toprol XL
Impression / Plan
-
PCP: Dr. Patrick
Cardiology: Dr. Moe
Impression:
Admitted with chest pain and PE 09/30/2024
Acute distal right main PE extending into the lobar branches by CT 10/08/2024
Newly diagnosed paroxysmal atrial fibrillation
New start to chronic Eliquis OAC
Elevated troponin
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
HTN
Hyperlipidemia
Thoracic aortic aneurysm, 4.3 cm by CTA 10/08/2024
Acute HFpEF
Echo 09/30/2024: EF 55 to 60%, flattened septum in systole consistent with RV pressure overload, stage I diastolic dysfunction, mild aortic regurgitation, normal aortic root diameter indexed to body surface area, compared to echo from 09/13/2019 the RV
appears more hypokinetic
Plan:
-Patient has been in persistent A-fib since 10/12/2024. Telemetry reviewed by me on 10/14/2024 and HR's are up to 120 with activity increased dose of Toprol-XL to 25 mg BID, ordered by me
-Patient was started on Eliquis 10 mg BID and following completion of PE protocol he should remain on lifelong therapy 5 mg BID (age 82, Cre 1.4). If at any point Cre improved to a value of greater than or equal to 1.5 then he would transition to
2.5 mg BID. We can follow-up on this as an outpatient
-Patient was given Lasix 20 mg IV x 1 on 10/13/2024 for possible volume overload, but no appreciable diuresis and remains on 2 L NC. Will give Lasix 40 mg IV x 1 now and then daily, all orders placed by me
-EF 55 to 60% by echo 09/30/2024
-New to Toprol-XL as noted above
-Will not start EDWIN/ARB/ARNI/aldosterone antagonist due to BRIAN earlier this admission
-Hold off on adding SGLT2 due to abnormal UA on admission
-Initial troponin was 0.077 and trended down thereafter. Will manage as a nonischemic myocardial injury troponin elevation due to PE
-Patient with a known thoracic aortic aneurysm that was stable by CTA on 10/08/2024
HPI: Patient came to ER on 10/08/2024 with a right sided chest pain and was found to have PE, cardiology is now consulted for evidence of new A-fib. Patient came to the ER with right-sided chest pain on 10/08/2024 and CTA of the chest revealed a
large pulmonary embolism getting in the distal right main pulmonary artery and extending into the lobar branches. A PERT alert was called and urgent echo performed as noted above. Patient was not offered thrombolytic therapy due to his hemodynamic
stability and there was only evidence of mild RV hypokinesis on echo. Patient has also continued to have mild oxygen requirements. Patient was started on heparin gtt and has now transition to Eliquis 10 mg BID. This morning patient was noted to
have paroxysmal atrial fibrillation and so cardiology was consulted. Patient is asymptomatic. There is no known history of A-fib.
Progress Note - World History Teacher
Subjective
Date of Service: October 14, 2024
He is SOB with activity, no CP
Objective
Labs:
10/12/24 03:49
10/14/24 03:53
Labs
Hgb 15.4 g/dL (13.0-18.0) 10/12/24 03:49
Hct 44.5 % (39.0-52.0) 10/12/24 03:49
Plt Count 236 10^3/uL (130-400) 10/12/24 03:49
APTT Cancelled 10/12/24 10:50
Sodium 140 mmol/L (135-145) 10/14/24 03:53
Potassium 4.6 mmol/L (3.5-5.1) 10/14/24 03:53
BUN 46 mg/dl (9-20) H 10/14/24 03:53
Creatinine 1.4 mg/dL (0.7-1.3) H 10/14/24 03:53
Glucose 224 mg/dl (70-99) H 10/14/24 03:53
Vital Signs and I&O:
Vital Signs
Temp Pulse Resp BP Pulse Ox
97.8 F 113 41 137/84 94
10/14/24 11:15 10/14/24 12:08 10/14/24 12:08 10/14/24 12:08 10/14/24 12:15
Vital Signs
Temp Pulse Resp BP Pulse Ox
97.8 F 113 41 137/84 94
10/14/24 11:15 10/14/24 12:08 10/14/24 12:08 10/14/24 12:08 10/14/24 12:15
Intake & Output
10/12/24 10/13/24 10/14/24 10/15/24
06:59 06:59 06:59 06:59
Intake Total 2580 / 2580 1210 / 1210
Output Total 3550 / 3550 800 / 800 1999 / 1999
Balance -970 / -970 -800 / -800 -790 / -790
Physical Exam
Physical Exam
GEN: NAD. AAO to person, place and situation
HEENT: MMM
LUNGS: 2 L NC. No audible wheeze
CV: Afib on tele. Irreg irreg
ABD: ND
EXT: No edema B/L
NEURO: Gross non-focal
SKIN: No rash
--- NOTE | 2024-10-14 14:21 | W.PN.PUL3 ---
Today's Communication / Plan
-
-Agree with Lasix IV
-D/c Ceftriaxone
-LFTs in AM
Assessment
-
84-year-old male with past medical history noted admitted through the emergency room complaining of chest discomfort and shortness of breath for the last 2 days. Found to be mildly hypoxic. Found to have a right sided large pulmonary embolism. We
were consulted for evaluation on 10/08/2024.
Acute hypoxemic respiratory failure-on 4-5 L via nasal cannula due to a right-sided PE
Submassive right-sided acute PE with RV strain
Echocardiogram 10/08/2024: Mild�moderately dilated RV with mild RV hypokinesis; Normal LVEF. Mild LVH. Flattened septum in systole consistent with RV pressure overload. Stage I diastolic dysfunction.
Troponin 0.077
proBNP 721
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
Snoring
Conditions present prior admission:
Coronary artery disease
Hypertension
Hyperlipidemia
Sending aortic aneurysm and renal aneurysm
History of white matter disease ? - per
Assessment and plan:
#1. Right sided large pulmonary embolism, likley unprovoked, as no clear major precipitating event noted. Son has h/o DVT times 2.
-Evidence of RV function deterioration from last ECHO, elevated troponin and BNP. PERT alert was called initially- patient was not offered thrombolytics at this point due to stability and only mild RV hypokinesis and mild oxygen requirements
-ABG and Lactate normal on 10/11. Hemodynamically stable and saturating well in high 90's. Transitioned to Eliquis now
-Updated patient's at bedside
-Pleuritic chest pain significantly improved with steroids
#2. Bibasilar pneumonia.
-In view of elevated PCT. agree with treating for CAP. Rocephin and Azithromycin
-Afebrile, saturating well. Follow-up on cultures
-Cough quite improved
-D/c Ceftriaxone as completed 5 days.
#3. Bibasilar interstitial changes. Mild in severity.
-Will need PFTs, DLCO assessment as out patient. Imaging not typical for UIP
#4. Paroxysmal atrial fibrillation, newly detected.
-Normal rate of around 95-105 during my evaluation, hemodynamically stable
-Patient on Eliquis
-Cardiology service on case
-Started on Metoprolol
#5. Mildly elevated LFTs.
-Could be related to hepatic congestion as appears to be volume overloaded
-Diurese and monitor
-Monitor for now
-Drug induced also in differential, monitor for now.
Snoring - at risk for EILEEN, discussed with and will follow up in outpx - info left on chart
Will follow.
Total time spent on this consultation/encounter _38___ minutes which includes review of history, physical exam, medications, laboratory data, personal review of imaging, extensive review of outpatient records, discussion with care team and
respiratory therapy.
Subjective Data
-
Date of Service:
Date of Service: October 14, 2024
Chief Complaint: Pulmonary Follow Up
Subjective:
Patient comfortably sitting in bed, on room air, work of breathing normal.
Review of Systems
Genitourinary: Other (All 14 systems reviewed and negative except as stated above in the history of present illness.)
Objective Data
Data Reviewed
Vital Signs / I&O / Oxygen:
Vital Signs
Temp Pulse Resp BP Pulse Ox
97.8 F 113 41 137/84 94
10/14/24 11:15 10/14/24 12:08 10/14/24 12:08 10/14/24 12:08 10/14/24 12:15
Intake and Output
10/13/24 10/14/24 10/15/24
06:59 06:59 06:59
Intake Total 1210 / 1210
Output Total 800 / 800 1999 / 1999
Balance -800 / -800 -790 / -790
SaO2 94
Nasal Cannula flow liters per 2
minute
Physical Exam
General: Comfortable
HEENT: Normocephalic
Cardiovascular: S1-S2 and Peripheral Edema
Respiratory: Clear and Non-Labored Respirations
GI: Soft and Non Distended
Neurology: Awake, Alert and AO x 3 (Not oriented )
Skin: Warm
Labs/Micro/Reports
Lab Data
10/12/24 03:49
10/14/24 03:53
Microbiology
10/10/24 20:18 Blood/Venous Blood Culture - Preliminary
No Growth in 72 hours- Final report to follow
10/10/24 20:18 Blood/Venous Blood Culture - Preliminary
No Growth in 72 hours- Final report to follow
10/10/24 22:20 Urine Urine Culture - Final
NO GROWTH
--- NOTE | 2024-10-14 15:11 | W.PN.HOSP.TC ---
Today's Communication/Plan
-
follow labs
decrease steroids
Assessment / Plan
Assessment / Plan
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 Found to
have large distal right main pulmonary artery embolism.
PLAN:
#Acute hypoxic respiratory failure
essentially resolved
#Large distal right main pulmonary embolism
#LE DVT
� Flattened septum on echo, EF 55 to 60%
� No intervention as per interventional radiology
� Avoid strenuous activity
- OK for OOb to chair
� Continued heparin drip for 48 hours - now transitioned to Eliquis
� Pulmonary consulted reviewed with Dr. Camacho
recommendation is to continue current management
� Will need hematological evaluation outpatient
� Wean O2 as tolerated
currently 94% on room air
� Elevated BP, better. BP currently 137/84
Severe pleuritic chest pain
symptoms improved with steroids, will taper. Currently on Decadron 2 mg IV q12h, will decrease to 20 mg Prednisone daily
New onset A.Fib, seen by Puneet Ellison
consulted cardio, started on Toprol XL 12.5 mg daily, now 25 mg bid
Probable post obstructive/pleuritic PNA
continues on Azithromycin with Rocephin stopped
continue for now and change to oral at time of dc
Confusion is better today
stopped Seroquel, hopefully stop totally if mentation continues to improve
#Pleuritic chest pain
� Likely secondary to PE
� Pain control monitoring blood pressures closely
# RUQ abd pain
#Transaminitis
most likely due to PE with passive congestion
Somewhat of a concern with rising LFT's
AST 30-->163-->428. If this is passive congestion should show improvement. ?medication related. Will follow
-f/u US: Mild hepatomegaly with findings suggesting diffuse fatty liver.
Prior cholecystectomy. Mildly enlarged common bile duct which may be the sequela of prior cholecystectomy. No findings to suggest intrahepatic biliary tract dilatation.
Pancreas, abdominal aorta and IVC significantly obscured, most likely by overlying bowel gas.
Mild left renal collecting system and proximal left ureteral dilatation. Please see above comments.
#Hyponatremia
# Mild, Na 141
� resolved
#BRIAN on CKD
� will stop IVF and follow BP
� Monitor BMP closely
#Urinary Retention
#Urinary Discomfort
#Asymptomatic bacteriuria
- Significant elevated WBC (my impression would be related to pleuritic symptoms, but elevated Procalcitonin does raise concern for infectious etiology and Rocephin resumed last evening, noted input from Pulmonary, , will continue Rocephin and
Azithromycin added), unfortunately starting steroids will make following WBC more complex
-retention worsened with opiates, they have been stopped
-tamsulosin
� Flynn has been removed
Sacrum Stage 2 Pressure Injury, POA
Acute Metabolic Encephalopathy
multifactorial - submassive PE, severe pleuritic pain, pneumonia, symptoms worsened with use of narcotic analgesics used to control pain
#Elevated troponin
� Most likely nonischemic myocardial injury secondary to pulmonary embolism
� Trend troponins until peak
� No wall motion abnormality on echo
#Leukocytosis
� Most likely reactive
Monitor fever curve, white count
hyperglycemia from steroids
will follow as tapered
#CKD
� Monitor
#Hypertension
with BP currently low, most likely related to the extensive PE
#Hyperlipidemia
#CAD
� Hold antihypertensives for now with dropping bp when gets out of bed
� Can continue statin
#DVT prophylaxis
� Eliquis has been started, Heparin stopped
reviewed with 10/14
complex situation
Anticipated Discharge: 24 - 48 hours
Subjective/Interval History
-
Date of Service: October 14, 2024
Looks much better, more alert. Pleuritic pain markedly reduced
Objective Data
-
Labs:
Laboratory Results
10/14/24
03:53
Sodium 140
Potassium 4.6
Chloride 109 H
Carbon Dioxide 22
BUN 46 H
Creatinine 1.4 H
Glucose 224 H
Calcium 10.0
Total Bilirubin 1.2
AST 428 H
ALT 423 H
Alkaline Phosphatase 217 H
Vital Signs:
Vital Signs
Temp Pulse Resp BP Pulse Ox
97.8 F 113 41 137/84 94
10/14/24 11:15 10/14/24 12:08 10/14/24 12:08 10/14/24 12:08 10/14/24 12:15
I&O
10/13/24 10/14/24 10/15/24
06:59 06:59 06:59
Intake Total 1210 / 1210
Output Total 800 / 800 2000 / 2000
Balance -800 / -800 -790 / -790
Review of Systems
-
History Source: Patient and Family (reviewed with at bedside, many questions and concerns)
Constitutional: Denies Fever (resolved)
EENT: Reports No Symptoms Reported
Respiratory: Reports Pleurisy (today fully resolved post starting steroids)
Cardiac: Reports No Symptoms
Abdomen/GI: Reports No Symptoms
Genitourinary: Reports No Symptoms
Musculoskeletal: Reports No Symptoms
Physical Exam
-
General: Well Developed, Well Nourished and No Apparent Distress
HEENT: Normocephalic, Atraumatic and Moist Mucous Membranes
Respiratory: Rales (scattered rt sided atelectatic rales essentially resolved)
Cardiac: S1/S2 and Irregular Rhythm
GI: Soft, Nontender and Nondistended
Musculoskeletal: No Clubbing and No Cyanosis; Negative No Edema (trace)
[2024-10-14] MEDS: LASIX 40 MG IV (15:58)
[2024-10-14] MEDS: ZITHROMAX 500 MG PO (17:31)
[2024-10-14] MEDS: NOVOLOG FLEXPEN-MODERATE RESISTANCE 1 UNITS SC (17:46)
[2024-10-14 17:49] LABS: Glucose - Point of Care 155 mg/dl (70-99)
--- NOTE | 2024-10-14 18:47 | PTCARENOTE ---
OOB all day, weaned to 2L NC =94%- failed on RAIR=88%. Pleasant, denies pain. AMbulated to bathroom x1 today w mod assist and walker. AFIB rates 90s-100. Voids well s/p IV Lasix. +Lg BM in bathroom after MOM. Sacral foam CDI.
[2024-10-14] MEDS: TOPROL XL 25 MG PO (19:23)
[2024-10-14] MEDS: NON-FORMULARY ITEM 1 UNIT BOTH EYES (19:25)
[2024-10-14] MEDS: STERILE WATER FOR INJECTION IV (19:32)
[2024-10-14] MEDS: HALDOL 1 MG IV (21:49)
--- NOTE | 2024-10-14 22:08 | W.PN.UPDATE ---
Update Note
Progress Note Update
RN reported patient agitated, threatening to throw urinal if come closer to him. LUNCHROOM MOTHER at the unit, unable to reorient, radial drill operator for plastic was called, 4 points placed. Haldol IV givenx1.
Patient calmed down resting in bed at present.
--- NOTE | 2024-10-14 22:10 | PTCARENOTE ---
Patient became visibly agitated, attempted to jump out of bed with a full urinal, threatening staff saying 'if you come any closer, I will throw this urine on you.' Security called, multiple staff members attempted to negotiate with patient to put
down the urinal. When any staff member attempted to get close to patient, patient started to throw urine. After 20 min of negotiations with patient and no resolution, ICU nurse ran into room and grabbed urinal from patient. Security helped get
patient back into bed and 4 pt restraints placed. Haldol administered x1.
[2024-10-14 23:37] LABS: Glucose - Point of Care 273 mg/dl (70-99)
[2024-10-15] VITALS (22 sets, daily range): BP systolic 95–141; BP diastolic 51–98; PULSE 111; O2SAT 95; BMI 32.0
[2024-10-15 04:42] LABS: Hematocrit 43.8 % (39.0-52.0); Hemoglobin 15.1 g/dL (13.0-18.0); Mean Corp Hgb Conc. 34.5 g/dL (33.0-37.0); Mean Corpuscular Hgb 29.4 pg (27.0-31.0); Mean Corpuscular Volume 85.2 fL (80.0-94.0); Mean Platelet Volume 9.7 fL (7.4-10.4); Platelet Count 323 10^3/uL (130-400); Red Blood Cell Count 5.14 10^6/uL (4.70-6.10); Red Cell Dist. Width 13.9 % (11.5-14.5)
[2024-10-15 05:02] LABS: ALT (SGPT) 491 U/L (0-50); AST (SGOT) 325 U/L (17-59); Albumin 2.9 g/dl (3.5-5.0); Alkaline Phosphatase 201 U/L (38-126); Blood Urea Nitrogen 48 mg/dl (9-20); Calcium 9.8 mg/dl (8.4-10.2); Carbon Dioxide 23 mmol/L (22-30); Chloride 108 mmol/L (98-107); Direct Bilirubin 0.4 mg/dl (0.0-0.4); Estimated Creatinine Clearance 57 ml/min; Glucose 160 mg/dl (70-99); Potassium 4.4 mmol/L (3.5-5.1); Sodium 139 mmol/L (135-145); Total Bilirubin 1.4 mg/dl (0.2-1.3); Total Protein 5.7 g/dl (6.3-8.2); eGFR 50.18
[2024-10-15 05:15] LABS: % Basophils 0.1 % (0-2); % Eosinophils 1.1 % (0-6); % Immature Granulocytes 9.8 % (0-0.5); % Lymphocytes 9.7 % (20.5-51.1); % Monocytes 10.2 % (1.7-9.3); % Neutrophils 69.1 % (42.2-75.2); Absolute Eosinophils 0.2 10^3/uL (0-0.7); Absolute Immature Granulocytes 1.7 10^3/uL (0-0.05); Absolute Lymphocytes 1.6 10^3/uL (1.2-3.4); Absolute Monocytes 1.7 10^3/uL (0.1-0.6); Absolute Neutrophils 11.7 10^3/uL (1.4-6.5); Nucleated Red Blood Cells % 0 % (-)
[2024-10-15 07:30] LABS: Glucose - Point of Care 146 mg/dl (70-99)
[2024-10-15] MEDS: NOVOLOG FLEXPEN-MODERATE RESISTANCE SC (07:56)
[2024-10-15] MEDS: FLOMAX 0.4 MG PO (07:58)
[2024-10-15] MEDS: DELTASONE 20 MG PO (07:58)
[2024-10-15] MEDS: ELIQUIS 10 MG PO ×2 (07:58→20:52)
[2024-10-15] MEDS: COLACE 100 MG PO ×2 (07:58→20:52)
[2024-10-15] MEDS: TOPROL XL 25 MG PO ×2 (07:58→20:52)
[2024-10-15] MEDS: LASIX 40 MG IV (08:01)
[2024-10-15] MEDS: LIDOCAINE 4% PATCH TOPICAL (08:01)
[2024-10-15] MEDS: TIMOPTIC 0.5% OPHTHALMIC SOLUTION 1 DROP BOTH EYES ×2 (08:02→20:53)
--- NOTE | 2024-10-15 10:19 | PTCARENOTE ---
4 point restraints removed. Patient AOx3 and much less agitated. Education provided to patient to ring call lawton for assistance. Patient verbalized understanding. Patients at bedside. Care discussed with Dr. Sinclair, patient, patients , and
RN at bedside.
--- NOTE | 2024-10-15 11:35 | W.PN.CARDCBS ---
Addendum entered and electronically signed by Dario Yao MD 10/15/24 13:47:
I saw and examined the patient.
The BESSEMER CONVERTER BLOWER or PA's note was reviewed and I agree with the note.
Comment: General: Well developed, well nourished in NAD.
Neck: Supple, no JVD, HJR, carotids +2 B/L, no bruits bilaterally.
Heart: Non displaced PMI, irregular, no murmurs, No S3, S4, no rubs.
Lungs: Clear to auscultation bilaterally, no wheeze, rhonchi, rubs bilaterally,
normal expiratory phase.
Extremities: No clubbing, cyanosis or edema bilaterally.
Neuro: Grossly nonfocal, awake, alert and oriented x3.
Stable cardiology status. Already anticoagulated for PE which also will cover for A-fib. Might consider addressing A-fib as an outpatient versus continued rate control. Do not think beta-blockers are affecting mental status. Patient records
reviewed and did have gynecomastia with Aldactone in the past but no issues with beta-blockers. Also beta-ronak is needed for rate control and also with history of thoracic aneurysm. Discussed with patient and family as well as nursing in detail
Original Note:
Today's Communication / Plan
-
Continue Eliquis per PE protocol
Continue increased dose of Toprol
Continue rate control for atrial fibrillation
Outpatient cardiology follow-up has been arranged
Impression / Plan
-
PCP: Dr. Patrick
Cardiology: Dr. Moe
Impression:
Admitted with chest pain and PE 09/30/2024
Acute distal right main PE extending into the lobar branches by CT 10/08/2024
Newly diagnosed paroxysmal atrial fibrillation
New start to chronic Eliquis OAC
Elevated troponin
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
HTN
Hyperlipidemia
Thoracic aortic aneurysm, 4.3 cm by CTA 10/08/2024
Acute HFpEF
Echo 09/30/2024: EF 55 to 60%, flattened septum in systole consistent with RV pressure overload, stage I diastolic dysfunction, mild aortic regurgitation, normal aortic root diameter indexed to body surface area, compared to echo from 09/13/2019 the RV
appears more hypokinetic
Plan:
-Admitted with chest pain and PE 09/30/2024
-Events overnight 10/14/24 into 10/15/24 noted that patient became very agitated and disoriented requiring restraints and Haldol. Possibly from UTI versus TME with abnormal LFTs versus . Doubt would be from adding twice daily Toprol. No
outpatient record to indicate patient had any issues with beta-ronak in past
-Continue antibiotics for UTI
-Patient has been in persistent A-fib since 10/12/2024. Telemetry reviewed by me on 10/15/2024 and HR better controlled since Toprol 25 mg BID
-Patient was started on Eliquis 10 mg BID and following completion of PE protocol he should remain on lifelong therapy 5 mg BID (age 82, Cre 1.4). If at any point Cre improved to a value of greater than or equal to 1.5 then he would transition to
2.5 mg BID. We can follow-up on this as an outpatient
-Patient was given Lasix 20 mg IV x 1 on 10/13/2024 and started 40 mg IV daily 10/14 for possible volume overload; weight trended up overnight however unclear if weight is accurate as was obtained in bed scale, - 2600 today so far
-EF 55 to 60% by echo 09/30/2024
-New to Toprol-XL as noted above
-Will not start EDWIN/ARB/ARNI/aldosterone antagonist due to BRIAN earlier this admission
-Hold off on adding SGLT2 due to abnormal UA on admission
-Initial troponin was 0.077 and trended down thereafter. Will manage as a nonischemic myocardial injury troponin elevation due to PE
-Patient with a known thoracic aortic aneurysm that was stable by CTA on 10/08/2024
- Encourage PT/OT getting out of bed and moving around
Patient's and daughter at bedside as well as team guide and plan discussed.
HPI: Patient came to ER on 10/08/2024 with a right sided chest pain and was found to have PE, cardiology is now consulted for evidence of new A-fib. Patient came to the ER with right-sided chest pain on 10/08/2024 and CTA of the chest revealed a
large pulmonary embolism getting in the distal right main pulmonary artery and extending into the lobar branches. A PERT alert was called and urgent echo performed as noted above. Patient was not offered thrombolytic therapy due to his hemodynamic
stability and there was only evidence of mild RV hypokinesis on echo. Patient has also continued to have mild oxygen requirements. Patient was started on heparin gtt and has now transition to Eliquis 10 mg BID. This morning patient was noted to
have paroxysmal atrial fibrillation and so cardiology was consulted. Patient is asymptomatic. There is no known history of A-fib.
Progress Note - Advanced Manufacturing Engineer
Subjective
Date of Service: October 15, 2024
Patient seen and examined. Patient's family ( and daughter at bedside). Seems much less confused and denies chest pain or shortness of breath
Objective
Labs:
10/15/24 04:09
10/15/24 04:09
Labs
Hgb 15.1 g/dL (13.0-18.0) 10/15/24 04:09
Hct 43.8 % (39.0-52.0) 10/15/24 04:09
Plt Count 323 10^3/uL (130-400) D 10/15/24 04:09
APTT Cancelled 10/12/24 10:50
Sodium 139 mmol/L (135-145) 10/15/24 04:09
Potassium 4.4 mmol/L (3.5-5.1) 10/15/24 04:09
BUN 48 mg/dl (9-20) H 10/15/24 04:09
Creatinine 1.4 mg/dL (0.7-1.3) H 10/15/24 04:09
Glucose 160 mg/dl (70-99) H 10/15/24 04:09
Vital Signs and I&O:
Vital Signs
Temp Pulse Resp BP Pulse Ox
97.8 F 113 23 113/51 91
10/15/24 07:10 10/15/24 10:03 10/15/24 10:03 10/15/24 10:03 10/15/24 10:03
Vital Signs
Temp Pulse Resp BP Pulse Ox
97.8 F 113 23 113/51 91
10/15/24 07:10 10/15/24 10:03 10/15/24 10:03 10/15/24 10:03 10/15/24 10:03
Intake & Output
10/13/24 10/14/24 10/15/24 10/16/24
06:59 06:59 06:59 06:59
Intake Total 1210 / 1210 1400 / 1400
Output Total 800 / 800 2000 / 2000 3000 / 3000 1000 / 1000
Balance -800 / -800 -790 / -790 -1600 / -1600 -1000 / -1000
Physical Exam
Physical Exam
GEN: No distress, awake, Ox3, lying in bed
HEENT: supple, anicteric, mmm
LUNGS: Mild decreased at right base otherwise CTA, no wheezes/rales
CV: Reg, S1/S2, 1/6 syst LSB, no murmur
ABD: soft, BS+, NT/ND
EXT: No edema, clubbing or cyanosis
NEURO: Gross non-focal
SKIN: No rash, warm, pink
[2024-10-15 12:25] LABS: Glucose - Point of Care 206 mg/dl (70-99)
[2024-10-15] MEDS: NOVOLOG FLEXPEN-MODERATE RESISTANCE 3 UNITS SC (12:28)
--- NOTE | 2024-10-15 13:21 | CM ---
Patient with Dx pulmonary embolism, LE DVT, new Afib, PNA. Room air. Receiving IV Lasix, PO Abx. Episode agitation last night in restraints - IV Haldol given. PT/OT recommend skilled rehab.
Spoke with nurse Margi; no longer agitated and out of restraints.
Message from Dr Malone; in regard to the episode of agitation last night, he wants to see how the patient does tonight.
Met with patient and daughter Martir;
Patient was sitting OOB in chair, seemed alert/oriented, calm and able to participate in the conversation.
Patient and daughter re-confirm that they would like short term SNF at [facility].
Provided update to daughter that Dr Malone indicated that her father is not ready for d/c today.
Phone Message to Shelly Fu [facility]; the patient is not medically ready for d/c today. He had an episode of agitation last night and will be observed tonight.
Plan [facility] SNF when medically ready and bed available.
--- NOTE | 2024-10-15 15:00 | PTCARENOTE ---
Patient AOx3. Patient is forgetful at times. Bed and chair alarm on and audible. Patient on RA with SpO2 greater than 92%. A fib with PVC's on monitor. +1 B/L LE edema. Weak pedal pulses. Condom cath removed and patient utilizing urinal to pee.
Assist x1 with RW when OOB. Patients family at bedside. Call lawton within reach, bed in lowest position, and bed of wheels locked.
--- NOTE | 2024-10-15 15:09 | W.PN.PUL3 ---
Today's Communication / Plan
-
-D/c Azithromycin
-resume Seroquel 25 qHS
Assessment
-
84-year-old male with past medical history noted admitted through the emergency room complaining of chest discomfort and shortness of breath for the last 2 days. Found to be mildly hypoxic. Found to have a right sided large pulmonary embolism. We
were consulted for evaluation on 10/08/2024.
Acute hypoxemic respiratory failure-on 4-5 L via nasal cannula due to a right-sided PE
Submassive right-sided acute PE with RV strain
Echocardiogram 10/08/2024: Mild�moderately dilated RV with mild RV hypokinesis; Normal LVEF. Mild LVH. Flattened septum in systole consistent with RV pressure overload. Stage I diastolic dysfunction.
Troponin 0.077
proBNP 721
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
Snoring
Conditions present prior admission:
Coronary artery disease
Hypertension
Hyperlipidemia
Sending aortic aneurysm and renal aneurysm
History of white matter disease ? - per
Assessment and plan:
#1. Right sided large pulmonary embolism, likley unprovoked, as no clear major precipitating event noted. Son has h/o DVT times 2.
-Evidence of RV function deterioration from last ECHO, elevated troponin and BNP. PERT alert was called initially- patient was not offered thrombolytics at this point due to stability and only mild RV hypokinesis and mild oxygen requirements
-ABG and Lactate normal on 10/11. Hemodynamically stable and saturating well in high 90's. Transitioned to Eliquis now
-Updated patient's at bedside
-Pleuritic chest pain significantly improved with steroids
#2. Bibasilar pneumonia.
-In view of elevated PCT. agree with treating for CAP. Rocephin and Azithromycin
-Afebrile, saturating well. Follow-up on cultures
-Cough quite improved
-D/c Antibiotics as completed 5 days.
#3. Bibasilar interstitial changes. Mild in severity.
-Will need PFTs, DLCO assessment as out patient. Imaging not typical for UIP
#4. Paroxysmal atrial fibrillation, newly detected.
-rate controlled
-Patient on Eliquis
-Cardiology service on case
-Started on Metoprolol
#5. Mildly elevated LFTs.
-Could be related to hepatic congestion as appears to be volume overloaded
-Improving with diuresis
Updated patient's and daughter at bedside
Will follow.
Total time spent on this consultation/encounter _31___ minutes which includes review of history, physical exam, medications, laboratory data, personal review of imaging, extensive review of outpatient records, discussion with care team and
respiratory therapy.
Subjective Data
-
Date of Service:
Date of Service: October 15, 2024
Chief Complaint: Pulmonary Follow Up
Subjective:
Patient comfortably sitting in bed, in no acute distress. On room air, saturating 93-94%
Review of Systems
Genitourinary: Other (No new symptoms reported )
Objective Data
Data Reviewed
Vital Signs / I&O / Oxygen:
Vital Signs
Temp Pulse Resp BP Pulse Ox
98 F 95 19 113/81 90
10/15/24 11:51 10/15/24 14:00 10/15/24 14:00 10/15/24 12:15 10/15/24 14:00
Intake and Output
10/14/24 10/15/24 10/16/24
06:59 06:59 06:59
Intake Total 1210 / 1210 1400 / 1400 480 / 480
Output Total 2000 / 2000 3000 / 3000 1500 / 1500
Balance -790 / -790 -1600 / -1600 -1020 / -1020
SaO2 90
Nasal Cannula flow liters per 93
minute
Physical Exam
General: Comfortable
HEENT: Normocephalic
Cardiovascular: S1-S2 and Peripheral Edema (resolving. 1+ today, improving )
Respiratory: Clear and Non-Labored Respirations
GI: Soft and Non Distended
Neurology: Awake and Alert
Skin: Warm
Labs/Micro/Reports
Lab Data
10/15/24 04:09
10/15/24 04:09
Microbiology
10/10/24 20:18 Blood/Venous Blood Culture - Preliminary
No Growth in 4 days- Final report to follow
10/10/24 20:18 Blood/Venous Blood Culture - Preliminary
No Growth in 4 days- Final report to follow
10/10/24 22:20 Urine Urine Culture - Final
NO GROWTH
--- NOTE | 2024-10-15 15:47 | CHAP ---
Light Rail Signal Technician request relayed to Fr. Magaña of [facility] (on-call today). He provided Mr. Leyva with Sacrament of the Sick and Holy Communion.
[2024-10-15 16:37] LABS: Glucose - Point of Care 181 mg/dl (70-99)
--- NOTE | 2024-10-15 16:47 | W.PN.HOSP.TC ---
Today's Communication/Plan
-
decreasing steroids
follow CBC, LFT's
if continue to improve, potential dc next 2-3 days
Atrial Fib management as per cardio
Assessment / Plan
Assessment / Plan
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 Found to
have large distal right main pulmonary artery embolism.
PLAN:
#Acute hypoxic respiratory failure
essentially resolved
#Large distal right main pulmonary embolism
#LE DVT
� Flattened septum on echo, EF 55 to 60%
� No intervention as per interventional radiology
� Avoid strenuous activity
- OK for OOb to chair
� Continued heparin drip for 48 hours - now transitioned to Eliquis
� Pulmonary consulted reviewed with Dr. Camacho
recommendation is to continue current management
� Will need hematological evaluation outpatient
� Wean O2 as tolerated
currently 94% on room air
� Elevated BP, better. BP currently 106/80
Severe pleuritic chest pain
symptoms improved with steroids, will taper. Went from Decadron 2 mg IV q8h, to q12h, then decreased to 20 mg Prednisone daily, will decrease further to 10 mg daily
New onset A.Fib, seen by cardio
started on Toprol XL 12.5 mg daily, now 25 mg bid
elevated BP much improved since starting Toprol
Probable post obstructive/pleuritic PNA
Azithromycin and Rocephin stopped
Confusion is better today
stopped Seroquel, though was confused last night
#Pleuritic chest pain
� Likely secondary to PE
� Pain control monitoring blood pressures closely
# RUQ abd pain
#Transaminitis
most likely due to PE with passive congestion
Somewhat of a concern with rising LFT's
AST 30-->163-->428-->325. If this is passive congestion should show improvement. doubt medication related. Will follow, showing some improvement
-f/u US: Mild hepatomegaly with findings suggesting diffuse fatty liver.
Prior cholecystectomy. Mildly enlarged common bile duct which may be the sequela of prior cholecystectomy. No findings to suggest intrahepatic biliary tract dilatation.
Pancreas, abdominal aorta and IVC significantly obscured, most likely by overlying bowel gas.
Mild left renal collecting system and proximal left ureteral dilatation. Please see above comments.
#Hyponatremia
# Mild, Na 141-->139
� resolved
#BRIAN on CKD
� will stop IVF and follow BP
� Monitor BMP closely
#Urinary Retention
#Urinary Discomfort
#Asymptomatic bacteriuria
- Significant elevated WBC (my impression would be related to pleuritic symptoms, but elevated Procalcitonin does raise concern for infectious etiology and Rocephin resumed last evening, noted input from Pulmonary, , will continue Rocephin and
Azithromycin added), unfortunately starting steroids will make following WBC more complex
-retention worsened with opiates, they have been stopped
-tamsulosin
� Flynn has been removed
Sacrum Stage 2 Pressure Injury, POA
Acute Metabolic Encephalopathy
multifactorial - submassive PE, severe pleuritic pain, pneumonia, symptoms worsened with use of narcotic analgesics used to control pain, has significantly improved
#Elevated troponin
� Most likely nonischemic myocardial injury secondary to pulmonary embolism
� Trend troponins 0.077-->0.047-->0.035
� No wall motion abnormality on echo
#Leukocytosis
� Most likely reactive, starting to trend down
remains afebrile
15.3-->15.8-->22.9-->23.5-->20.6-->20.1-->17.0k
hyperglycemia from steroids
will follow as tapered
#CKD
� Monitor
#Hypertension
with BP currently low, most likely related to the extensive PE
#Hyperlipidemia
#CAD
� Hold antihypertensives for now with dropping bp when gets out of bed
� Can continue statin
#DVT prophylaxis
� Eliquis has been started, Heparin stopped
reviewed with 10/14
complex situation
Anticipated Discharge: > 48 hours
Subjective/Interval History
-
Date of Service: October 15, 2024
Became confused and aggitated last night and required restraints, currently totally resolved
Objective Data
-
Labs:
Laboratory Results
10/15/24
04:09
Sodium 139
Potassium 4.4
Chloride 108 H
Carbon Dioxide 23
BUN 48 H
Creatinine 1.4 H
Glucose 160 H
Calcium 9.8
Total Bilirubin 1.4 H
AST 325 H
ALT 491 H
Alkaline Phosphatase 201 H
Vital Signs:
Vital Signs
Temp Pulse Resp BP Pulse Ox
97.8 F 91 23 106/80 94
10/15/24 15:05 10/15/24 16:00 10/15/24 16:00 10/15/24 15:45 10/15/24 16:00
I&O
10/14/24 10/15/24 10/16/24
06:59 06:59 06:59
Intake Total 1210 / 1210 1400 / 1400 480 / 480
Output Total 2000 / 2000 3000 / 3000 1500 / 1500
Balance -790 / -790 -1600 / -1600 -1020 / -1020
Review of Systems
-
History Source: Patient and Family (reviewed with at bedside, many questions and concerns)
Constitutional: Denies Fever (resolved)
EENT: Reports No Symptoms Reported
Respiratory: Reports Pleurisy (today fully resolved post starting steroids)
Cardiac: Reports No Symptoms
Abdomen/GI: Reports No Symptoms
Genitourinary: Reports No Symptoms
Musculoskeletal: Reports No Symptoms
Physical Exam
-
General: Well Developed, Well Nourished and No Apparent Distress
HEENT: Normocephalic, Atraumatic and Moist Mucous Membranes
Respiratory: Rales (scattered rt sided atelectatic rales essentially resolved)
Cardiac: S1/S2 and Irregular Rhythm
GI: Soft, Nontender and Nondistended
Musculoskeletal: No Clubbing and No Cyanosis; Negative No Edema (trace)
[2024-10-15] MEDS: NOVOLOG FLEXPEN-MODERATE RESISTANCE 1 UNITS SC (17:06)
[2024-10-15] MEDS: NON-FORMULARY ITEM 1 UNIT BOTH EYES (20:53)
[2024-10-15] MEDS: SEROQUEL 25 MG PO (20:55)
[2024-10-15 21:21] LABS: Glucose - Point of Care 197 mg/dl (70-99)
--- NOTE | 2024-10-15 22:41 | PTCARENOTE ---
During rounds pt observed sitting oob in chair nude disconnected from monitor with head hanging forward. Pt had earlier received his HS meds. Pt AAOx3 but groggy. Discussed with pt need to use call [place] for all assistance oob. Pt agreeable to use
call [place]. With assist of another RN pt received CHG bath while in chair linens and gown change. New #30 CC placed since pt pulled it off. New leads reapplied. Pt assisted back to bed where he fell asleep immediately. Bed alarm on and working. Call
[place] remains within reach. Will continue to monitor.
[2024-10-16] VITALS (15 sets, daily range): BP systolic 92–137; BP diastolic 57–91; BMI 30.6
[2024-10-16 06:10] LABS: Hematocrit 45.4 % (39.0-52.0); Hemoglobin 15.7 g/dL (13.0-18.0); Mean Corp Hgb Conc. 34.6 g/dL (33.0-37.0); Mean Corpuscular Hgb 29.3 pg (27.0-31.0); Mean Corpuscular Volume 84.9 fL (80.0-94.0); Mean Platelet Volume 9.2 fL (7.4-10.4); Platelet Count 302 10^3/uL (130-400); Red Blood Cell Count 5.35 10^6/uL (4.70-6.10); Red Cell Dist. Width 14.2 % (11.5-14.5); White Blood Cell Count 17.7 10^3/uL (4.8-10.8)
[2024-10-16 06:14] LABS: ALT (SGPT) 440 U/L (0-50); AST (SGOT) 277 U/L (17-59); Alkaline Phosphatase 180 U/L (38-126); Blood Urea Nitrogen 51 mg/dl (9-20); Calcium 9.5 mg/dl (8.4-10.2); Carbon Dioxide 26 mmol/L (22-30); Chloride 105 mmol/L (98-107); Estimated Creatinine Clearance 56 ml/min; Glucose 171 mg/dl (70-99); Potassium 4.6 mmol/L (3.5-5.1); Sodium 138 mmol/L (135-145); Total Bilirubin 1.9 mg/dl (0.2-1.3); Total Protein 5.9 g/dl (6.3-8.2); eGFR 50.18
[2024-10-16 08:15] LABS: Glucose - Point of Care 142 mg/dl (70-99)
--- NOTE | 2024-10-16 08:16 | W.PN.CARDCBS ---
Addendum entered and electronically signed by Dario Yao MD 10/16/24 10:46:
I saw and examined the patient.
The INSURANCE COMMISSIONER or PA's note was reviewed and I agree with the note.
Comment: General: Well developed, well nourished in NAD.
Neck: Supple, no JVD, HJR, carotids +2 B/L, no bruits bilaterally.
Heart: Non displaced PMI, irregular, no murmurs, No S3, S4, no rubs.
Lungs: Scattered rhonchi
Extremities: No clubbing, cyanosis or edema bilaterally.
Neuro: Grossly nonfocal, awake, alert and oriented x3.
Stable cardiology status. Will change to Lasix 40 mg daily. Remains in rate controlled A-fib. Will sign off, call with questions.
Original Note:
Today's Communication / Plan
-
Continue Eliquis per PE protocol and for A-fib
Heart rates well-controlled on Toprol 25 mg twice a day
Consider transitioning to oral Lasix 10/17/2024
Outpatient cardiology follow-up has been arranged
Impression / Plan
-
PCP: Dr. Patrick
Cardiology: Dr. Moe
Impression:
Admitted with chest pain and PE 09/30/2024
Acute distal right main PE extending into the lobar branches by CT 10/08/2024
Newly diagnosed paroxysmal atrial fibrillation
New start to chronic Eliquis OAC
Elevated troponin
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
HTN
Hyperlipidemia
Thoracic aortic aneurysm, 4.3 cm by CTA 10/08/2024
Acute HFpEF
Echo 09/30/2024: EF 55 to 60%, flattened septum in systole consistent with RV pressure overload, stage I diastolic dysfunction, mild aortic regurgitation, normal aortic root diameter indexed to body surface area, compared to echo from 09/13/2019 the RV
appears more hypokinetic
Plan:
-Admitted with chest pain and PE 09/30/2024
-Slept better last night without agitation.
-Continue antibiotics for UTI
-Patient has been in persistent A-fib since 10/12/2024. Telemetry reviewed by me on 10/16/2024 and HR now controlled on Toprol 25 mg BID
-Patient was started on Eliquis 10 mg BID and following completion of PE protocol he should remain on lifelong therapy 5 mg BID (age 82, Cre 1.4). If at any point Cre worsens to a value of greater than or equal to 1.5 then he would transition to 2.5
mg BID. We can follow-up on this as an outpatient
-Patient was given Lasix 20 mg IV x 1 on 10/13/2024 and started 40 mg IV daily 10/14 for possible volume overload; weight now down and appears to be euvolemic. BUN trending up. Consider transitioning to oral Lasix 10/17/3034 Patient was not on
diuretic as outpatient.
-EF 55 to 60% by echo 09/30/2024
-New to Toprol-XL 25 mg BID as noted above
-Outpatient dosing of amlodipine and valsartan have not been given this admission due to hypotension.
-Will not start EDWIN/ARB/ARNI/aldosterone antagonist due to BRIAN earlier this admission and hypotension
-Hold off on adding SGLT2 due to abnormal UA on admission
-Initial troponin was 0.077 and trended down thereafter. Will manage as a nonischemic myocardial injury troponin elevation due to PE
-Patient with a known thoracic aortic aneurysm that was stable by CTA on 10/08/2024
-Abnormal LFTs trending down
- Encourage PT/OT getting out of bed and moving around
Patient's and daughter at bedside as well as accounting technician and plan discussed.
HPI: Patient came to ER on 10/08/2024 with a right sided chest pain and was found to have PE, cardiology is now consulted for evidence of new A-fib. Patient came to the ER with right-sided chest pain on 10/08/2024 and CTA of the chest revealed a
large pulmonary embolism getting in the distal right main pulmonary artery and extending into the lobar branches. A PERT alert was called and urgent echo performed as noted above. Patient was not offered thrombolytic therapy due to his hemodynamic
stability and there was only evidence of mild RV hypokinesis on echo. Patient has also continued to have mild oxygen requirements. Patient was started on heparin gtt and has now transition to Eliquis 10 mg BID. This morning patient was noted to
have paroxysmal atrial fibrillation and so cardiology was consulted. Patient is asymptomatic. There is no known history of A-fib.
Progress Note - International Manager
Subjective
Date of Service: October 16, 2024
Patient seen and examined. Patient resting comfortably in bed. No significant events noted overnight. Was able to work with PT yesterday.
Objective
Labs:
10/16/24 05:41
10/16/24 05:41
Labs
Hgb 15.7 g/dL (13.0-18.0) 10/16/24 05:41
Hct 45.4 % (39.0-52.0) 10/16/24 05:41
Plt Count 302 10^3/uL (130-400) 10/16/24 05:41
APTT Cancelled 10/12/24 10:50
Sodium 138 mmol/L (135-145) 10/16/24 05:41
Potassium 4.6 mmol/L (3.5-5.1) 10/16/24 05:41
BUN 51 mg/dl (9-20) H 10/16/24 05:41
Creatinine 1.4 mg/dL (0.7-1.3) H 10/16/24 05:41
Glucose 171 mg/dl (70-99) H 10/16/24 05:41
Vital Signs and I&O:
Vital Signs
Temp Pulse Resp BP Pulse Ox
98.1 F 87 28 96/64 94
10/16/24 07:10 10/16/24 06:01 10/16/24 06:01 10/16/24 06:01 10/16/24 06:01
Vital Signs
Temp Pulse Resp BP Pulse Ox
98.1 F 87 28 96/64 94
10/16/24 07:10 10/16/24 06:01 10/16/24 06:01 10/16/24 06:01 10/16/24 06:01
Intake & Output
10/14/24 10/15/24 10/16/24 10/17/24
06:59 06:59 06:59 06:59
Intake Total 1210 / 1210 1400 / 1400 480 / 480
Output Total 1999 / 1999 3000 / 3000 1950 / 1950
Balance -790 / -790 -1600 / -1600 -1470 / -1470
Physical Exam
Physical Exam
GEN: No distress, awake, Ox3, lying in bed
HEENT: supple, anicteric, mmm
LUNGS: Few scattered crackles at right base at right base otherwise CTA, no wheezes/rales
CV: Reg, S1/S2, 1/6 syst LSB, no murmur
ABD: soft, BS+, NT/ND
EXT: No edema, clubbing or cyanosis
NEURO: Gross non-focal
SKIN: No rash, warm, pink
[2024-10-16] MEDS: FLOMAX 0.4 MG PO (08:25)
[2024-10-16] MEDS: DELTASONE 10 MG PO (08:25)
[2024-10-16] MEDS: ELIQUIS 10 MG PO ×2 (08:25→19:55)
[2024-10-16] MEDS: COLACE 100 MG PO ×2 (08:25→19:55)
[2024-10-16] MEDS: LASIX 40 MG IV (08:27)
[2024-10-16] MEDS: LIDOCAINE 4% PATCH TOPICAL (08:28)
[2024-10-16] MEDS: TIMOPTIC 0.5% OPHTHALMIC SOLUTION 1 DROP BOTH EYES ×2 (08:29→19:56)
[2024-10-16] MEDS: NOVOLOG FLEXPEN-MODERATE RESISTANCE SC (08:30)
[2024-10-16 08:36] LABS: Absolute Neutrophils -Man Diff 12.7 10^3/uL (1.4-6.5); Atypical Lymphocytes 1 %; Band Neutrophils 2 % (0-3); Eosinophils 2 % (0-6); Lymphocytes 13 % (20-51); Metamyelocytes 2 % (-); Monocytes 9 % (2-9); Myelocytes 1 % (-); Segmented Neutrophils 70 % (42-75)
[2024-10-16 08:37] LABS: Total Cells Counted 100
[2024-10-16 08:39] LABS: Normal RBC Morphology Yes; Platelets Checked Yes
[2024-10-16 11:50] LABS: Glucose - Point of Care 246 mg/dl (70-99)
[2024-10-16] MEDS: NOVOLOG FLEXPEN-MODERATE RESISTANCE 3 UNITS SC ×2 (12:00→17:17)
[2024-10-16] MEDS: TOPROL XL 25 MG PO ×2 (12:00→19:55)
--- NOTE | 2024-10-16 15:13 | CM ---
Patient and family seen at bedside. Patient conversant and able to introduce family. Plan continues to be SNF, CM will call to see if patient accepted for or if need to wait for friday. Patient family with many questions. IMM provided for
family to review. CM will continue to follow for discharge planning needs.
Plan; [facility] when medically appropriate and bed available.
--- NOTE | 2024-10-16 15:59 | W.PN.PUL3 ---
Addendum entered and electronically signed by Adam Camacho MD 10/17/24 15:32:
-Pulmonary team will sign off, please call as needed
-After 7 days of Eliquis 10 mg bid, switch to 5 mg BID if Cr <1.5, otherwise 2.5 mg BID
Original Note:
Today's Communication / Plan
-
- Continue diuresis as tolerated
-Monitor serum creatinine
Assessment
-
84-year-old male with past medical history noted admitted through the emergency room complaining of chest discomfort and shortness of breath for the last 2 days. Found to be mildly hypoxic. Found to have a right sided large pulmonary embolism. We
were consulted for evaluation on 10/08/2024.
Acute hypoxemic respiratory failure-on 4-5 L via nasal cannula due to a right-sided PE
Submassive right-sided acute PE with RV strain
Echocardiogram 10/08/2024: Mild�moderately dilated RV with mild RV hypokinesis; Normal LVEF. Mild LVH. Flattened septum in systole consistent with RV pressure overload. Stage I diastolic dysfunction.
Troponin 0.077
proBNP 721
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
Snoring
Conditions present prior admission:
Coronary artery disease
Hypertension
Hyperlipidemia
Sending aortic aneurysm and renal aneurysm
History of white matter disease ? - per
Assessment and plan:
#1. Right sided large pulmonary embolism, likley unprovoked, as no clear major precipitating event noted. Son has h/o DVT times 2.
-Evidence of RV function deterioration from last ECHO, elevated troponin and BNP. PERT alert was called initially- patient was not offered thrombolytics at this point due to stability and only mild RV hypokinesis and mild oxygen requirements
-ABG and Lactate normal on 10/11. Hemodynamically stable and saturating well in high 90's. Transitioned to Eliquis now
-Updated patient's at bedside
-Pleuritic chest pain significantly improved with steroids
#2. Bibasilar pneumonia.
-In view of elevated PCT. agree with treating for CAP. Rocephin and Azithromycin
-Afebrile, saturating well. Follow-up on cultures
-Cough quite improved
-Off antibiotics now
#3. Bibasilar interstitial changes. Mild in severity.
-Will need PFTs, DLCO assessment as out patient. Imaging not typical for UIP
#4. Paroxysmal atrial fibrillation, newly detected.
-rate controlled
-Patient on Eliquis
-Cardiology service on case
-Started on Metoprolol
#5. Mildly elevated LFTs.
-Could be related to hepatic congestion as appears to be volume overloaded
-Improving with diuresis
Updated patient's at bedside.
Will follow.
Total time spent on this consultation/encounter _28___ minutes which includes review of history, physical exam, medications, laboratory data, personal review of imaging, extensive review of outpatient records, discussion with care team and
respiratory therapy.
Subjective Data
-
Date of Service:
Date of Service: October 16, 2024
Chief Complaint: Pulmonary Follow Up
Subjective:
Comfortably sitting in chair, no acute distress.
Review of Systems
Genitourinary: Other (All 14 systems reviewed and negative except as stated above in the history of present illness.)
Objective Data
Data Reviewed
Vital Signs / I&O / Oxygen:
Vital Signs
Temp Pulse Resp BP Pulse Ox
98.1 F 91 17 112/91 92
10/16/24 15:03 10/16/24 12:00 10/16/24 10:00 10/16/24 12:00 10/16/24 10:00
Intake and Output
10/15/24 10/16/24 10/17/24
06:59 06:59 06:59
Intake Total 1400 / 1400 480 / 480
Output Total 3000 / 3000 1950 / 1950
Balance -1600 / -1600 -1470 / -1470
SaO2 92
Nasal Cannula flow liters per 92
minute
Physical Exam
General: Comfortable
HEENT: Normocephalic
Cardiovascular: S1-S2 and Peripheral Edema (resolving. 1+ today, improving )
Respiratory: Clear and Non-Labored Respirations
GI: Soft and Non Distended
Neurology: Awake and Alert
Skin: Warm
Labs/Micro/Reports
Lab Data
10/16/24 05:41
10/16/24 05:41
Microbiology
10/10/24 20:18 Blood/Venous Blood Culture - Final
No Growth - Final Report
10/10/24 20:18 Blood/Venous Blood Culture - Final
No Growth - Final Report
--- NOTE | 2024-10-16 16:42 | W.PN.HOSP.TC ---
Today's Communication/Plan
-
continue weaning steroids
continue Eliquis
Continue Toprol
Will need follow up with cardio regarding a.fib post discharge, ?eventual cardioversion
Assessment / Plan
Assessment / Plan
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 Found to
have large distal right main pulmonary artery embolism.
PLAN:
#Acute hypoxic respiratory failure
essentially resolved
#Large distal right main pulmonary embolism
#LE DVT
� Flattened septum on echo, EF 55 to 60%
� No intervention as per interventional radiology
� Avoid strenuous activity
- OK for OOb to chair
� Was on heparin drip for 48 hours - now transitioned to Eliquis
� Pulmonary consulted reviewed with Dr. Camacho
recommendation is to continue current management
� Will need hematological evaluation outpatient
� Wean O2 as tolerated
currently 94% on room air
� Elevated BP, better. BP currently 106/80
Severe pleuritic chest pain
symptoms improved with steroids, will taper. Went from Decadron 2 mg IV q8h, to q12h, then decreased to 20 mg Prednisone daily, will decrease further to 10 mg daily
New onset A.Fib, seen by cardio
started on Toprol XL 12.5 mg daily, now 25 mg bid
elevated BP much improved since starting Toprol
Probable post obstructive/pleuritic PNA
Azithromycin and Rocephin stopped
Confusion is better today
stopped Seroquel, though was confused 4/3-4 night. No issue night of 10/15-5
#Pleuritic chest pain
� Likely secondary to PE
� Pain control monitoring blood pressures closely, markedly improved with steroids
# RUQ abd pain
#Transaminitis
most likely due to PE with passive congestion
Somewhat of a concern with rising LFT's
AST 30-->163-->428-->325-->277. Will follow, showing considerable improvement
-f/u US: Mild hepatomegaly with findings suggesting diffuse fatty liver.
Prior cholecystectomy. Mildly enlarged common bile duct which may be the sequela of prior cholecystectomy. No findings to suggest intrahepatic biliary tract dilatation.
Pancreas, abdominal aorta and IVC significantly obscured, most likely by overlying bowel gas.
Mild left renal collecting system and proximal left ureteral dilatation. Please see above comments.
#Hyponatremia
# Mild, Na 141-->139
� resolved
#BRIAN on CKD
� will stop IVF and follow BP
� Monitor BMP closely
edema improved with Lasix, now changed to 40 mg orally
#Urinary Retention
#Urinary Discomfort
#Asymptomatic bacteriuria
- Significant elevated WBC (my impression would be related to pleuritic symptoms, but elevated Procalcitonin does raise concern for infectious etiology and Rocephin and Azithromycin started, have since been stopped), unfortunately starting steroids
will make following WBC more complex
-retention worsened with opiates, they have been stopped
-tamsulosin
� Flynn has been removed
will stop Seroquel
Sacrum Stage 2 Pressure Injury, POA
Acute Metabolic Encephalopathy
multifactorial - submassive PE, severe pleuritic pain, pneumonia, symptoms worsened with use of narcotic analgesics used to control pain, has significantly improved
#Elevated troponin
� Most likely nonischemic myocardial injury secondary to pulmonary embolism
� Trend troponins 0.077-->0.047-->0.035
� No wall motion abnormality on echo
#Leukocytosis
� Most likely reactive, starting to trend down
remains afebrile
15.3-->15.8-->22.9-->23.5-->20.6-->20.1-->17.0-->17.7k
hyperglycemia from steroids
will follow as tapered, generally improving as steroids tapered. Remains on Accuchecks with SSI coverage. Hopefully as steroids tapered to off, this can be stopped
#CKD
� Monitor
#Hypertension
with BP currently low, most likely related to the extensive PE
#Hyperlipidemia
#CAD
�Metoprolol added for both BP and heart rate control
� Can continue statin
#DVT prophylaxis
� Eliquis has been started, Heparin stopped
reviewed with 10/16
reviewed with dgtJie MD by phone
complex situation
Pt doing well, will plan on transfer to tele
Anticipated Discharge: > 48 hours
Subjective/Interval History
-
Date of Service: October 16, 2024
Generally feeling better, minimal to no pain on deep breaths, some with coughing
Objective Data
-
Labs:
Laboratory Results
10/16/24
05:41
WBC 17.7 H
Hgb 15.7
Hct 45.4
Plt Count 302
Sodium 138
Potassium 4.6
Chloride 105
Carbon Dioxide 26
BUN 51 H
Creatinine 1.4 H
Glucose 171 H
Calcium 9.5
Total Bilirubin 1.9 H
AST 277 H
ALT 440 H
Alkaline Phosphatase 180 H
Vital Signs:
Vital Signs
Temp Pulse Resp BP Pulse Ox
98.1 F 91 17 112/91 92
10/16/24 15:03 10/16/24 12:00 10/16/24 10:00 10/16/24 12:00 10/16/24 10:00
I&O
10/15/24 10/16/24 10/17/24
06:59 06:59 06:59
Intake Total 1400 / 1400 480 / 480
Output Total 3000 / 3000 1950 / 1950
Balance -1600 / -1600 -1470 / -1470
Review of Systems
-
History Source: Patient and Family (reviewed with at bedside, many questions and concerns)
Constitutional: Denies Fever (resolved)
EENT: Reports No Symptoms Reported
Respiratory: Reports Pleurisy (today fully resolved post starting steroids)
Cardiac: Reports No Symptoms
Abdomen/GI: Reports No Symptoms
Genitourinary: Reports No Symptoms
Musculoskeletal: Reports No Symptoms
Physical Exam
-
General: Well Developed, Well Nourished and No Apparent Distress
HEENT: Normocephalic, Atraumatic and Moist Mucous Membranes
Respiratory: Rales (scattered rt sided atelectatic rales essentially resolved)
Cardiac: S1/S2 and Irregular Rhythm
GI: Soft, Nontender and Nondistended
Musculoskeletal: No Clubbing and No Cyanosis; Negative No Edema (trace)
[2024-10-16 17:27] LABS: Glucose - Point of Care 232 mg/dl (70-99)
--- NOTE | 2024-10-16 21:00 | PTCARENOTE ---
Pt now telemetry. Report given to 4th floor RN. Pt, meds and all belongings transferred to room 413-2.
[2024-10-16 21:43] LABS: Glucose - Point of Care 191 mg/dl (70-99)
[2024-10-16] MEDS: NON-FORMULARY ITEM 1 UNIT BOTH EYES (21:59)
[2024-10-17 03:55] VITALS: BP 128/77
[2024-10-17 06:00] VITALS: BMI 30.5
[2024-10-17 06:42] LABS: Hematocrit 43.9 % (39.0-52.0); Hemoglobin 14.9 g/dL (13.0-18.0); Mean Corp Hgb Conc. 33.9 g/dL (33.0-37.0); Mean Corpuscular Hgb 28.8 pg (27.0-31.0); Mean Corpuscular Volume 84.9 fL (80.0-94.0); Mean Platelet Volume 9.6 fL (7.4-10.4); Platelet Count 305 10^3/uL (130-400); Red Blood Cell Count 5.17 10^6/uL (4.70-6.10); Red Cell Dist. Width 13.9 % (11.5-14.5)
[2024-10-17 07:00] VITALS: BP 114/73
[2024-10-17 07:06] LABS: ALT (SGPT) 468 U/L (0-50); AST (SGOT) 276 U/L (17-59); Albumin 2.6 g/dl (3.5-5.0); Alkaline Phosphatase 191 U/L (38-126); Blood Urea Nitrogen 46 mg/dl (9-20); Calcium 9.1 mg/dl (8.4-10.2); Carbon Dioxide 27 mmol/L (22-30); Chloride 105 mmol/L (98-107); Estimated Creatinine Clearance 56 ml/min; Glucose 164 mg/dl (70-99); Phosphorus 3.3 mg/dl (2.5-4.5); Potassium 4.2 mmol/L (3.5-5.1); Sodium 137 mmol/L (135-145); Total Bilirubin 1.8 mg/dl (0.2-1.3); Total Protein 5.4 g/dl (6.3-8.2); eGFR 50.18
[2024-10-17 08:04] LABS: Glucose - Point of Care 150 mg/dl (70-99)
[2024-10-17] MEDS: NOVOLOG FLEXPEN-MODERATE RESISTANCE 1 UNITS SC ×2 (08:05→17:51)
[2024-10-17 09:11] LABS: Absolute Neutrophils -Man Diff 14.4 10^3/uL (1.4-6.5); Band Neutrophils 2 % (0-3); Eosinophils 2 % (0-6); Lymphocytes 9 % (20-51); Monocytes 4 % (2-9); Myelocytes 5 % (-); Normal RBC Morphology Yes; Platelets Checked Yes; Segmented Neutrophils 78 % (42-75); Total Cells Counted 100
[2024-10-17] MEDS: TIMOPTIC 0.5% OPHTHALMIC SOLUTION 1 DROP BOTH EYES ×2 (09:40→21:07)
[2024-10-17] MEDS: DELTASONE 10 MG PO (09:49)
[2024-10-17] MEDS: COLACE 100 MG PO ×2 (09:49→21:05)
[2024-10-17] MEDS: ELIQUIS 10 MG PO ×2 (09:49→21:05)
[2024-10-17] MEDS: FLOMAX 0.4 MG PO (09:49)
[2024-10-17] MEDS: TOPROL XL 25 MG PO ×2 (09:51→21:05)
[2024-10-17] MEDS: LASIX 40 MG PO (09:52)
[2024-10-17] MEDS: LIDOCAINE 4% PATCH TOPICAL (10:00)
[2024-10-17 11:00] VITALS: BP 115/74
[2024-10-17 12:23] LABS: Glucose - Point of Care 252 mg/dl (70-99)
[2024-10-17] MEDS: NOVOLOG FLEXPEN-MODERATE RESISTANCE 5 UNITS SC (13:00)
[2024-10-17 15:00] VITALS: BP 111/78
--- NOTE | 2024-10-17 16:36 | CM ---
Met with patient's at her request. She had a few questions about discharge and when that may be. She is hopeful for tomorrow. Patient's stated that there is a bed at [facility] and that is where patient would like to go. CM will call [facility] in
am.
Plan: Case management will continue to follow and assist with discharge planning. [facility].
--- NOTE | 2024-10-17 16:51 | W.PN.HOSP.TC ---
Today's Communication/Plan
-
continue Eliquis 10 mg bid until 4/7 PM dose, then change to 5 mg bid
will stop Prednisone
follow LFT's post dc
will need short term SNF, discussed with CM, hopefully able to arrange next 1-2 days
Assessment / Plan
Assessment / Plan
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 Found to
have large distal right main pulmonary artery embolism.
PLAN:
#Acute hypoxic respiratory failure
essentially resolved
#Large distal right main pulmonary embolism
#LE DVT
� Flattened septum on echo, EF 55 to 60%
� No intervention as per interventional radiology
� Avoid strenuous activity
- OK for OOb to chair
� Was on heparin drip for 48 hours - now transitioned to Eliquis
� Pulmonary consulted reviewed with Dr. Camacho
recommendation is to continue current management
� Will need hematological evaluation outpatient
� Wean O2 as tolerated
currently 94% on room air
� Elevated BP, better. BP currently 106/80
Severe pleuritic chest pain
symptoms improved with steroids, will taper. Went from Decadron 2 mg IV q8h, to q12h, then decreased to 20 mg Prednisone daily, then decreased further to 10 mg daily, will plan on stopping today
New onset A.Fib, seen by cardio
started on Toprol XL 12.5 mg daily, now 25 mg bid
elevated BP much improved since starting Toprol
steroid induced hyperglycemia
with stopping steroids, hopefully this will resolve
Probable post obstructive/pleuritic PNA
Azithromycin and Rocephin stopped
Confusion is better today
stopped Seroquel, though was confused 4/3-4 night. No issue night of 10/15-5 or 5-6
#Pleuritic chest pain
� Likely secondary to PE
� Pain control monitoring blood pressures closely, markedly improved with steroids
# RUQ abd pain
#Transaminitis
most likely due to PE with passive congestion
Somewhat of a concern with rising LFT's
AST 30-->163-->428-->325-->277-->276. Will follow, showing considerable improvement. Should have follow up labs post dc
-f/u US: Mild hepatomegaly with findings suggesting diffuse fatty liver.
Prior cholecystectomy. Mildly enlarged common bile duct which may be the sequela of prior cholecystectomy. No findings to suggest intrahepatic biliary tract dilatation.
Pancreas, abdominal aorta and IVC significantly obscured, most likely by overlying bowel gas.
Mild left renal collecting system and proximal left ureteral dilatation. Please see above comments.
#Hyponatremia
# Mild, Na 141-->139
� resolved
#BRIAN on CKD
� will stop IVF and follow BP
� Monitor BMP closely
edema improved with Lasix, now changed to 40 mg orally
#Urinary Retention
#Urinary Discomfort
#Asymptomatic bacteriuria
- Significant elevated WBC (my impression would be related to pleuritic symptoms, but elevated Procalcitonin does raise concern for infectious etiology and Rocephin and Azithromycin started, have since been stopped), unfortunately starting steroids
will make following WBC more complex
-retention worsened with opiates, they have been stopped
-tamsulosin
� Flynn has been removed
will stop Seroquel
Sacrum Stage 2 Pressure Injury, POA
Acute Metabolic Encephalopathy
multifactorial - submassive PE, severe pleuritic pain, pneumonia, symptoms worsened with use of narcotic analgesics used to control pain, has significantly improved
#Elevated troponin
� Most likely nonischemic myocardial injury secondary to pulmonary embolism
� Trend troponins 0.077-->0.047-->0.035
� No wall motion abnormality on echo
#Leukocytosis
� Most likely reactive, starting to trend down
remains afebrile
15.3-->15.8-->22.9-->23.5-->20.6-->20.1-->17.0-->17.7-->18.0k
hyperglycemia from steroids
will follow as tapered, generally improving as steroids tapered. Remains on Accuchecks with SSI coverage. Hopefully as steroids tapered to off, this can be stopped
#CKD
� Monitor
#Hypertension
with BP currently low, most likely related to the extensive PE
#Hyperlipidemia
#CAD
�Metoprolol added for both BP and heart rate control
� Can continue statin
#DVT prophylaxis
� Eliquis has been started, Heparin stopped
reviewed with 10/17
Pt generally doing well
Anticipated Discharge: 24 - 48 hours
Subjective/Interval History
-
Date of Service: October 17, 2024
Generally feels better, is breathing better
Objective Data
-
Labs:
Laboratory Results
10/17/24
06:23
WBC 18.0 H
Hgb 14.9
Hct 43.9
Plt Count 305
Sodium 137
Potassium 4.2
Chloride 105
Carbon Dioxide 27
BUN 46 H
Creatinine 1.4 H
Glucose 164 H
Calcium 9.1
Total Bilirubin 1.8 H
AST 276 H
ALT 468 H
Alkaline Phosphatase 191 H
Vital Signs:
Vital Signs
Temp Pulse Resp BP Pulse Ox
97.9 F 87 24 115/74 93
10/17/24 11:00 10/17/24 11:00 10/17/24 11:00 10/17/24 11:00 10/17/24 11:00
I&O
10/16/24 10/17/24 10/18/24
06:59 06:59 06:59
Intake Total 480 / 480 480 / 480
Output Total 1949 / 1949 2900 / 2900
Balance -1470 / -1470 -2420 / -2420
Review of Systems
-
History Source: Patient and Family (reviewed with at bedside, many questions and concerns)
Constitutional: Denies Fever (resolved)
EENT: Reports No Symptoms Reported
Respiratory: Reports Pleurisy (today fully resolved post starting steroids)
Cardiac: Reports No Symptoms
Abdomen/GI: Reports No Symptoms
Genitourinary: Reports No Symptoms
Musculoskeletal: Reports No Symptoms
Physical Exam
-
General: Well Developed, Well Nourished and No Apparent Distress
HEENT: Normocephalic, Atraumatic and Moist Mucous Membranes
Respiratory: Rales (scattered rt sided atelectatic rales essentially resolved)
Cardiac: S1/S2 and Irregular Rhythm
GI: Soft, Nontender and Nondistended
Musculoskeletal: No Clubbing and No Cyanosis; Negative No Edema (trace)
[2024-10-17 17:27] LABS: Glucose - Point of Care 192 mg/dl (70-99)
[2024-10-17 19:53] VITALS: BP 128/71
[2024-10-17 21:28] LABS: Glucose - Point of Care 242 mg/dl (70-99)
[2024-10-17] MEDS: NON-FORMULARY ITEM 1 UNIT BOTH EYES (22:11)
[2024-10-17 23:55] VITALS: BP 122/83
--- NOTE | 2024-10-18 03:25 | PTCARENOTE ---
Addendum entered by Tammie Chowdary 10/18/24 05:48:
Pt angry, remains confused. Unable to reorient at this time. Emotional support offered.
Original Note:
Patient hallucinating- stating ' I am in an art museum'. Taking ekg monitor tech off and condom cath. Able to reorient.
[2024-10-18 03:29] VITALS: BP 117/77
[2024-10-18 06:00] VITALS: BMI 30.3
[2024-10-18 07:11] VITALS: BP 131/93
[2024-10-18 08:24] LABS: Glucose - Point of Care 148 mg/dl (70-99)
[2024-10-18] MEDS: NOVOLOG FLEXPEN-MODERATE RESISTANCE SC (08:30)
[2024-10-18 08:51] LABS: Hemoglobin 15.7 g/dL (13.0-18.0); Mean Corp Hgb Conc. 33.4 g/dL (33.0-37.0); Mean Corpuscular Volume 86.9 fL (80.0-94.0); Mean Platelet Volume 9.8 fL (7.4-10.4); Platelet Count 330 10^3/uL (130-400); Red Blood Cell Count 5.41 10^6/uL (4.70-6.10); Red Cell Dist. Width 13.8 % (11.5-14.5); White Blood Cell Count 15.5 10^3/uL (4.8-10.8)
[2024-10-18] MEDS: TOPROL XL 25 MG PO (09:22)
[2024-10-18] MEDS: LASIX 40 MG PO (09:23)
[2024-10-18] MEDS: FLOMAX 0.4 MG PO (09:23)
[2024-10-18] MEDS: COLACE 100 MG PO (09:23)
[2024-10-18] MEDS: TIMOPTIC 0.5% OPHTHALMIC SOLUTION 1 DROP BOTH EYES (09:24)
[2024-10-18] MEDS: LIDOCAINE 4% PATCH TOPICAL (09:24)
[2024-10-18] MEDS: ELIQUIS 10 MG PO (09:24)
[2024-10-18 10:21] LABS: ALT (SGPT) 475 U/L (0-50); AST (SGOT) 235 U/L (17-59); Albumin 2.8 g/dl (3.5-5.0); Alkaline Phosphatase 199 U/L (38-126); Blood Urea Nitrogen 36 mg/dl (9-20); Calcium 9.4 mg/dl (8.4-10.2); Carbon Dioxide 27 mmol/L (22-30); Chloride 104 mmol/L (98-107); Estimated Creatinine Clearance 50 ml/min; Glucose 163 mg/dl (70-99); Potassium 4.5 mmol/L (3.5-5.1); Sodium 137 mmol/L (135-145); Total Bilirubin 1.7 mg/dl (0.2-1.3); Total Protein 5.8 g/dl (6.3-8.2); eGFR 50.18
[2024-10-18 11:38] VITALS: BP 129/79
[2024-10-18 12:19] LABS: Absolute Neutrophils -Man Diff 11.6 10^3/uL (1.4-6.5); Band Neutrophils 1 % (0-3); Eosinophils 2 % (0-6); Lymphocytes 11 % (20-51); Monocytes 7 % (2-9); Segmented Neutrophils 74 % (42-75)
[2024-10-18 12:20] LABS: Metamyelocytes 2 % (-); Myelocytes 3 % (-); Normal RBC Morphology Yes; Platelets Checked Yes; Total Cells Counted 100
[2024-10-18 12:20] LABS: Glucose - Point of Care 281 mg/dl (70-99)
[2024-10-18] MEDS: NOVOLOG FLEXPEN-MODERATE RESISTANCE 5 UNITS SC (12:31)
--- NOTE | 2024-10-18 13:01 | W.PN.HOSP.TC ---
Addendum entered and electronically signed by Howard Coreas MD 10/18/24 17:03:
[id number]
Original Note:
Today's Communication/Plan
-
imaging of thyroid, liver as per PCP
F/u cbc, CMP outpt within 5- 7 days
Eliquis starter pack
BB
stop Amlodipine
F/u PCP, Urology, Cards, Pulmonary outpt
Assessment / Plan
Assessment / Plan
84-year-old male with past medical history of CAD, hypertension, hyperlipidemia, ascending aortic aneurysm and renal aneurysm getting closely monitored outpatient, presented for right-sided chest discomfort that it was present 2 days [employer]. Found to
have large distal right main pulmonary artery embolism.
PLAN:
#Acute hypoxic respiratory failure
- resolved
#Large distal right main pulmonary embolism
#LE DVT
� Flattened septum on echo, EF 55 to 60%
� No intervention as per interventional radiology
� Avoid strenuous activity
- OK for OOb to chair
� Was on heparin drip for 48 hours - now transitioned to Eliquis
� Pulmonary consulted
� Will need hematological evaluation outpatient
� Wean O2 as tolerated
currently 94% on room air
� Elevated BP, better. BP currently 106/80
Severe pleuritic chest pain
symptoms improved with steroids, will taper. Went from Decadron 2 mg IV q8h, to q12h, then decreased to 20 mg Prednisone daily, then decreased further to 10 mg daily, and therefore stopped
#New onset A.Fib, seen by cardio
started on Toprol XL 12.5 mg daily, now 25 mg bid
elevated BP much improved since starting Toprol
-f/u cards outpt
steroid induced hyperglycemia
with stopping steroids
-improved
Probable post obstructive/pleuritic PNA
Azithromycin and Rocephin stopped
Acute metabolic Encephalopathy
Delirium
-resolved
-AAOx3 today
stopped Seroquel, though was confused 10/14- night. No issue night of 10/15- or 10/16-
#Pleuritic chest pain
� Likely secondary to PE
� Pain control monitoring blood pressures closely, markedly improved with steroids
-improved
# RUQ abd pain - after discussion with Patient - patient NEVER had abdominal Pain - confirmed with patient and
#Transaminitis
-most likely due to PE with passive congestion
- F/u LFTS outpatient
- Imaging as per PCP outpatient
-Once again, no abdominal pain
--f/u US: Mild hepatomegaly with findings suggesting diffuse fatty liver.
Prior cholecystectomy. Mildly enlarged common bile duct which may be the sequela of prior cholecystectomy. No findings to suggest intrahepatic biliary tract dilatation.
Pancreas, abdominal aorta and IVC significantly obscured, most likely by overlying bowel gas.
Mild left renal collecting system and proximal left ureteral dilatation. Please see above comments.
#Hyponatremia
# Mild, Na 141-->139
� resolved
#BRIAN on CKD
� will stop IVF and follow BP
� Monitor BMP closely
edema improved with Lasix, now changed to 40 mg orally
#Urinary Retention
#Urinary Discomfort
#Asymptomatic bacteriuria
- Significant elevated WBC (my impression would be related to pleuritic symptoms, but elevated Procalcitonin does raise concern for infectious etiology and Rocephin and Azithromycin started, have since been stopped), unfortunately starting steroids
will make following WBC more complex
-retention worsened with opiates, they have been stopped
-tamsulosin
� Flynn has been removed
will stop Seroquel
Sacrum Stage 2 Pressure Injury, POA
#Elevated troponin
� Most likely nonischemic myocardial injury secondary to pulmonary embolism
� Trend troponins 0.077-->0.047-->0.035
� No wall motion abnormality on echo
#Leukocytosis
� Most likely reactive, starting to trend down
remains afebrile
-f/u outpatient
Low-density nodule arising in the left lobe of the thyroid gland.
-evaluation with follow-up thyroid ultrasound.
Mild left renal collecting system and proximal left ureteral dilatation.
-f/u urology outpt
-urinating
-renal function stable
#CKD
� Monitor
#Hypertension
with BP currently low, most likely related to the extensive PE
#Hyperlipidemia
#CAD
�Metoprolol added for both BP and heart rate control
-stop CCB
� hold statin - for transaminitis
#DVT prophylaxis
� Eliquis has been started, Heparin stopped
#
More than 30 minutes spent in discharge including
Final examination of the patient
Summarizing hospital stay
Instructions for continuing care to all relevant caregivers
Preparation of discharge records, prescriptions, and referral forms
Total time spent (36 in minutes):
Anticipated Discharge: Today
Subjective/Interval History
-
Date of Service: October 18, 2024
no acute events
Objective Data
-
Labs:
Laboratory Results
10/18/24 10/18/24
06:51 09:30
WBC 15.5 H
Hgb 15.7
Hct 47.0
Plt Count 330
Sodium Cancelled 137
Potassium Cancelled 4.5
Chloride Cancelled 104
Carbon Dioxide Cancelled 27
BUN Cancelled 36 H
Creatinine Cancelled 1.4 H
Glucose Cancelled 163 H
Calcium Cancelled 9.4
Total Bilirubin Cancelled 1.7 H
AST Cancelled 235 H
ALT Cancelled 475 H
Alkaline Phosphatase Cancelled 199 H
Vital Signs:
Vital Signs
Temp Pulse Resp BP Pulse Ox
98 F 79 20 129/79 96
10/18/24 11:38 10/18/24 11:38 10/18/24 11:38 10/18/24 11:38 10/18/24 11:38
I&O
10/17/24 10/18/24 10/19/24
06:59 06:59 06:59
Intake Total 480 / 480 720 / 720
Output Total 2900 / 2900 2150 / 2150
Balance -2420 / -2420 -1430 / -1430
Review of Systems
-
History Source: Patient
All other systems: Not reviewed unless documented
Physical Exam
-
General: Well Developed, Well Nourished and No Apparent Distress
HEENT: Normocephalic, Atraumatic and Moist Mucous Membranes
Respiratory: Rales (scattered rt sided atelectatic rales essentially resolved)
Cardiac: S1/S2 and Irregular Rhythm
GI: Soft, Nontender (Non Tender to RUQ pain) and Nondistended
Musculoskeletal: No Clubbing and No Cyanosis; Negative No Edema (trace)
Data Reviewed
-
Diagnostic Radiology: Report Reviewed by me
CT Scan: Report Reviewed by me
Ultrasound: Report Reviewed by me
Labs: Labs Reviewed by me
--- NOTE | 2024-10-18 13:27 | W.DS.TRANS ---
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
-
Discharge Instructions:
Discharge Diagnosis/Procedures #Acute hypoxic respiratory failure
#Large distal right main pulmonary embolism
#LE DVT
#New onset A.Fib, seen by cardio
#Transaminitis
Diet 2 Gram Sodium,Low Fat,Low Cholesterol
Activity As tolerated
Blood Work cbc, bmp, lfts outpatient
Others Tests Low-density nodule arising in the left lobe of
the thyroid gland.
-evaluation with follow-up thyroid ultrasound.
liver imaging as per PCP
Specialty Instructions Weigh Daily
Instructions:
Stand-Alone Forms:
Changes to Home Medications: Yes
Discharge Medications:
DC Medications w/original date entered in [employer]
bimatoprost 0.03 % eye drops 1 drp BOTH EYES DAILY Eye Condition 10/08/24
cholecalciferol (vitamin D3) 125 mcg (5,000 unit) tablet (Vitamin D3) 125 mcg PO MOFR Supplement 10/08/24
coenzyme Q10 200 mg capsule (Co Q-10) 200 mg PO SUTUTHSA@1800 Supplement 10/08/24
dextran 70-hypromellose eye drops in a dropperette (Artificial Tears (PF) drops in a dropperette) 1 drp BOTH EYES QIDPRN PRN DRY EYE 10/08/24
ezetimibe 10 mg tablet 10 mg PO DAILY High Cholesterol 10/08/24
fexofenadine 180 mg tablet 180 mg PO DAILY Allergies 10/08/24
magnesium oxide 250 mg PO DAILY Electrolyte Repletion 10/08/24
pitavastatin calcium 1 mg tablet (Livalo) 1 mg PO DAILY High Cholesterol 10/08/24
timolol maleate 0.5 % eye drops 1 drp BOTH EYES BID Eye Condition 10/08/24
apixaban 5 mg tablet (Eliquis) 10 mg (2 x 5 mg) PO BID #0 tabs 10/18/24
furosemide 40 mg tablet 40 mg PO DAILY #0 tabs 10/18/24
lidocaine 4 % topical patch 2 patch topical DAILY #0 ea 10/18/24
metoprolol succinate 25 mg tablet,extended release 24 hr 25 mg PO BID #0 tabs 10/18/24
tamsulosin 0.4 mg capsule 0.4 mg PO DAILY #0 caps 10/18/24
Home Medication Changes
metoprolol succinate 25 mg tablet,extended release 24 hr 25 mg PO BID #0 tabs 10/18/24
tamsulosin 0.4 mg capsule 0.4 mg PO DAILY #0 caps 10/18/24
Pending Results: No
--- NOTE | 2024-10-18 13:56 | CM ---
Addendum entered by DUANE Terrell 10/18/24 15:25:
Patient's and patient stated that patient's mother at [facility]. Shelly stated that there is availability at [facility]. Patient and his were agreeable. Provided overview of SNF level of care.
IMM signed and on chart. Patient agreeable to discharge.
[facility].
# for report [phone] and fax# [phone]
Addendum entered by DUANE Terrell 10/18/24 14:30:
Received return call from Shelly who stated that there is bed availability at [place], will update patient's .
Original Note:
Placed a call to Nickie in admissions at [facility] who stated that patient's behavior has not been under control for the length of time needed for her to accept. Spoke with patient's who stated that she would like for patient to transfer to the
following if there are beds available: [facility], [facility], [facility] and [facility].
Placed a call to [facility]. She stated that she will review referral and will return call to regarding acceptance. Patient's stated that if patient unable to get into a facility, she will
take him home with VN services. She understands that this is not the indication from medical staff.
Plan: Case management will continue to follow and assist with discharge planning. Hopeful SNF today, after admissions has the chance to review.
[2024-10-18 15:14] VITALS: BP 132/83
[2024-10-18 17:04] LABS: Glucose - Point of Care 173 mg/dl (70-99)
[2024-10-18] MEDS: NOVOLOG FLEXPEN-MODERATE RESISTANCE 1 UNITS SC (17:26)
--- NOTE | 2024-10-18 19:07 | PTCARENOTE ---
Received patient this am AAox2. Pt forgetful. Pt tolerated diet well. Pt for discharge to [facility]. Report called to Diamond at [address] [facility]. Pt offered no complaints. Made patient comfortable.Cont to assess patient status.
[2024-10-18 19:27] VITALS: BP 128/78
== END 2024-10-18 19:34 | DRG 175 ==
LOC: 4 EAST ACU 15:21
PROVIDERS: Internal Medicine; Internal Medicine Cardiovascular Disease; Nurse Practitioner Family; Physician Assistant; Registered Nurse; ADMITTING PHYSICIAN Internal Medicine; CONSULT PHYSICIAN Internal Medicine Critical Care Medicine; EMERGENCY PHYSICIAN Emergency Medicine; FAMILY PHYSICIAN Internal Medicine; OTHER PHYSICIAN Internal Medicine Cardiovascular Disease
DX: I26.99 Other pulmonary embolism without acute cor pulmonale (principal); G93.41 Metabolic encephalopathy; J18.9 Pneumonia, unspecified organism; J96.01 Acute respiratory failure with hypoxia; I50.31 Acute diastolic (congestive) heart failure; I5A Non-ischemic myocardial injury (non-traumatic); N17.9 Acute kidney failure, unspecified; E87.1 Hypo-osmolality and hyponatremia; I82.411 Acute embolism and thrombosis of right femoral vein; I82.431 Acute embolism and thrombosis of right popliteal vein; N39.0 Urinary tract infection, site not specified; R74.01 Elevation of levels of liver transaminase levels; R33.9 Retention of urine, unspecified; L89.152 Pressure ulcer of sacral region, stage 2; I48.0 Paroxysmal atrial fibrillation; I71.21 Aneurysm of the ascending aorta, without rupture; I72.2 Aneurysm of renal artery; I25.10 Atherosclerotic heart disease of native coronary artery without angina pectoris; Z79.899 Other long term (current) drug therapy; R45.1 Restlessness and agitation; Z78.1 Physical restraint status; N18.9 Chronic kidney disease, unspecified; I13.10 Hypertensive heart and chronic kidney disease without heart failure, with stage 1 through stage 4 chronic kidney disease, or unspecified chronic kidney disease; E78.00 Pure hypercholesterolemia, unspecified; E04.1 Nontoxic single thyroid nodule; Z79.01 Long term (current) use of anticoagulants; Z87.820 Personal history of traumatic brain injury; Z87.891 Personal history of nicotine dependence
CPT/HCPCS: 71045; 71275; 74174; 76700; 80048; 80053; 81003; 81015; 82248; 82805; 82962; 83036; 83605; 83880; 84100; 84145; 84484; 85025; 85027; 85730; 86704; 86705; 86706; 86708; 86709; 86803; 87040; 87086; 87340; 87389; 93005; 93306; 93970; 96365; 96366; 97116; 97163; 97167; 97530; 99291; Q9957; Q9967

== ENCOUNTER → 2024-11-25 09:32 | Day surgery (SDC) | payer MEDICARE, OTHER, SELFPAY ==
--- NOTE | 2024-11-25 11:22 | ITS.CL.CARDI ---
Airline Captain - Cardioversion
Cardioversion
Procedure Report:
Date of Procedure: 11/25/24
Procedure: Cardioversion
Indication: Symptomatic atrial fibrillation
Performing Physician: Oli Moe MD
Technique: The patient was brought to the holding area. Signed informed consent was obtained. A time out was called and performed. The patient was anesthetized by the anesthesia service. Anticoagulation status was reviewed and appropriate. R2 pads
were placed anteriorly and posteriorly. After CORA revealed no LA appendage thrombus, A 200 J synchronized biphasic shock restored normal sinus rhythm without significant bradycardia. There were no complications.
Conclusion: Uncomplicated cardioversion from atrial fibrillation to sinus rhythm.
Recommendation: Routine post cardioversion care. Continue chcf anticoagulation.
== END ==
LOC: CATH 09:32
PROVIDERS: ATTENDING PHYSICIAN Internal Medicine Cardiovascular Disease; FAMILY PHYSICIAN Internal Medicine
DX: I48.91 Unspecified atrial fibrillation (principal); I45.10 Unspecified right bundle-branch block; I49.1 Atrial premature depolarization; I08.3 Combined rheumatic disorders of mitral, aortic and tricuspid valves; I08.8 Other rheumatic multiple valve diseases; Z79.01 Long term (current) use of anticoagulants
CPT/HCPCS: 93312; 93320; 93325; 92960; 93005

== ENCOUNTER → 2024-12-13 13:10 | Outpatient (REF) | payer MEDICARE, OTHER, SELFPAY | LOC: RAD 13:10 | PROVIDERS: ATTENDING PHYSICIAN Nurse Practitioner Adult Health; FAMILY PHYSICIAN Internal Medicine | DX: I26.99 Other pulmonary embolism without acute cor pulmonale (principal); Z09 Encounter for follow-up examination after completed treatment for conditions other than malignant neoplasm | CPT/HCPCS: 71046; 93971 ==